=== PATIENT | male | born 1965 | race Caucasian/White ===

== ENCOUNTER 2017-07-27 16:28 | Observation (INO) | payer OTHER ==
[~2017-07-27] VITALS: Ht 193 cm; Wt 193.2 kg
[~2017-07-27 16:28] MED LIST: AMBIEN10 MG PO; COLCRYS0.6 MG PO; EXFORGE 10-3201 EACH PO; INDOMETHACIN50 MG PO; MEDROL4 MG/DOSE-; NORCO 10-325 T1 EACH PO
[2017-07-27] MEDS ORDERED: KETOROLAC TROMETHAMINE 30 MG/ML VIAL IV STA (17:00)
[2017-07-27] MEDS ORDERED: HYDROCODONE/APAP 10MG-325MG TAB PO ONE (17:00)
[2017-07-27] MEDS ORDERED: DEXAMETHASONE SOD PHOS 10 MG/1 ML VIAL IV NR (17:30)
--- NOTE | 2017-07-27 17:48 | Diagnostic Imaging Report ---
PROCEDURE:X-RAY LEFT KNEE, THREE OR MORE VIEWS COMPARISON:None. INDICATIONS:KNEE PAIN FINDINGS: The bones are well-mineralized. There are no fractures, subluxations, lytic or blastic lesions. Mild patellar enthesophyte at the quadriceps tendon insertion. Moderate suprapatellar joint effusion. CONCLUSION: Nonspecific moderate suprapatellar joint effusion. No acute abnormalities identified. Dictated by: Kan Ruiz M.D. on 07/27/2017 at 17:56 Electronically approved by: Kan Ruiz M.D. on 07/27/2017 at 17:56
[2017-07-27 19:52] LABS: BASOPHILS # (AUTO) 0.1 (0.0-0.1); BASOPHILS % 0.4 % (0.0-1.0); EOSINOPHILS # (AUTO) 0.1 (0.0-0.4); EOSINOPHILS % 1.1 % (0.0-6.0); HEMATOCRIT 31.1 % (38.2-49.6); HEMOGLOBIN 10.6 g/dL (14.0-18.0); LYMPHOCYTES # (AUTO) 0.9 (1.0-3.2); MEAN CORPUSCULAR HGB CONC 34.1 g/dL (31-35); MONOCYTES # (AUTO) 0.9 (0.2-0.8); MONOCYTES % 6.7 % (4.4-11.3); NEUTROPHILS # (AUTO) 10.7 (2.1-6.9); NEUTROPHILS % 84.2 % (38.7-80.0); PLATELET COUNT 287 x10e3/uL (140-360); RED BLOOD COUNT 3.31 x10e6/uL (4.3-5.7); RED CELL DISTRIBUTION WIDTH 14.5 % (11.7-14.4)
[2017-07-27 20:09] LABS: ANION GAP 14.6 mmol/L (8-16); BLOOD UREA NITROGEN 6 mg/dL (7-26); BUN/CREATININE RATIO 8 (6-25); CALCIUM 7.8 mg/dL (8.4-10.2); CARBON DIOXIDE 29 mmol/L (22-29); CHLORIDE 98 mmol/L (98-107); CREATININE, SERUM 0.72 mg/dL (0.72-1.25); EST GLOMERULAR FILTRATION RATE > 60 ML/MIN (60-); GLUCOSE 130 mg/dL (74-118); SODIUM 139 mmol/L (136-145); URIC ACID 5.5 mg/dL (3.5-7.2)
[2017-07-27 20:12] LABS: POTASSIUM 2.6 mmol/L (3.5-5.1)
[2017-07-27] MEDS ORDERED: POTASSIUM CHLORIDE 20 MEQ TAB CR PO STA (20:13)
[2017-07-27] MEDS ORDERED: KCL 20MEQ/.9 SOD CHL 1,000 ML IV ONE (20:15)
[2017-07-27] MEDS ORDERED: COLCHICINE 0.6 MG TAB PO STA (20:31)
[2017-07-27] MEDS ORDERED: SODIUM CHLORIDE FLUSH 10 ML SYR INJ PRN (20:45)
[2017-07-27] MEDS ORDERED: HYDROMORPHONE 1MG/1ML INJ IV PRN (20:45)
[2017-07-27] MEDS ORDERED: INDOMETHACIN 25 MG CAP PO SCH (21:00)
[2017-07-27] MEDS: ZOLPIDEM TARTRATE 10 MG TAB PO SCH (21:00)
[2017-07-27] MEDS ORDERED: INDOMETHACIN 50 MG PO SCH (21:00)
[2017-07-27] MEDS: DOXYCYCLINE HYCLATE 100 MG in SODIUM CHLORIDE 0.9% 100 ML 100 ML IV SCH (21:54)
[2017-07-27] MEDS ORDERED: COLCHICINE 0.6 MG TAB PO SCH (22:00)
[2017-07-27] MEDS: HYDROMORPHONE 2MG/ML INJ IV PRN (22:47)
[2017-07-27] MEDS: METHYLPREDNISOLONE SOD SUCC 125 MG/2ML VIAL IV SCH (23:32)
[2017-07-28] VITALS (9 sets, daily range): BP systolic 147–190; BP diastolic 74–92
[2017-07-28] MEDS ORDERED: METHYLPREDNISOLONE SOD SUCC 40 MG/ML VIAL IV SCH
[2017-07-28] MEDS: HYDROMORPHONE 2MG/ML INJ IV PRN ×5 (01:50→20:06)
[2017-07-28] MEDS: METHYLPREDNISOLONE SOD SUCC 125 MG/2ML VIAL IV SCH ×3 (05:02→17:36)
[2017-07-28 07:06] LABS: BASOPHILS % 0.1 % (0.0-1.0); EOSINOPHILS % 0.1 % (0.0-6.0); HEMATOCRIT 31.9 % (38.2-49.6); HEMOGLOBIN 10.9 g/dL (14.0-18.0); LYMPHOCYTES # (AUTO) 0.5 (1.0-3.2); LYMPHOCYTES % 3.8 % (18.0-39.1); MEAN CORPUSCULAR HEMOGLOBIN 32.1 pg (28-32); MEAN CORPUSCULAR HGB CONC 34.2 g/dL (31-35); MEAN CORPUSCULAR VOLUME 93.8 fL (81-99); MONOCYTES # (AUTO) 0.5 (0.2-0.8); MONOCYTES % 3.6 % (4.4-11.3); NEUTROPHILS # (AUTO) 12.3 (2.1-6.9); NEUTROPHILS % 91.7 % (38.7-80.0); PLATELET COUNT 330 x10e3/uL (140-360); RED CELL DISTRIBUTION WIDTH 14.1 % (11.7-14.4)
[2017-07-28 07:35] LABS: ANION GAP 14.5 mmol/L (8-16); BLOOD UREA NITROGEN 10 mg/dL (7-26); BUN/CREATININE RATIO 12 (6-25); CALCIUM 8.1 mg/dL (8.4-10.2); CARBON DIOXIDE 28 mmol/L (22-29); CHLORIDE 99 mmol/L (98-107); CREATININE, SERUM 0.81 mg/dL (0.72-1.25); EST GLOMERULAR FILTRATION RATE > 60 ML/MIN (60-); GLUCOSE 197 mg/dL (74-118); POTASSIUM 3.5 mmol/L (3.5-5.1); SODIUM 138 mmol/L (136-145)
[2017-07-28] MEDS: COLCHICINE 0.6 MG TAB PO SCH (08:39)
[2017-07-28] MEDS: VALSARTAN 160 MG TAB PO SCH (08:39)
[2017-07-28] MEDS: POTASSIUM CHLORIDE 20 MEQ TAB CR PO SCH (08:39)
[2017-07-28] MEDS: AMLODIPINE BESYLATE 10 MG TAB PO SCH (08:39)
[2017-07-28] MEDS ORDERED: AMLODIPINE PO SCH (09:00)
[2017-07-28] MEDS ORDERED: COLCHICINE 0.6 MG TAB PO SCH (09:00)
[2017-07-28] MEDS ORDERED: VALSARTAN PO SCH (09:00)
[2017-07-28] MEDS: DOXYCYCLINE HYCLATE 100 MG in SODIUM CHLORIDE 0.9% 100 ML 100 ML IV SCH ×2 (10:00→20:24)
[2017-07-28] MEDS: INDOMETHACIN 25 MG CAP PO SCH ×2 (12:36→16:53)
[2017-07-28] MEDS: PANTOPRAZOLE SOD 40 MG TABEC PO SCH (12:45)
--- NOTE | 2017-07-28 14:48 | History and Physical ---
PRIMARY CARE PROVIDER: Dr. Shankar "Nicole Wells. CHIEF COMPLAINT: Polyarticular gout flareup. HISTORY OF PRESENT ILLNESS: Mr. Phan is a 52-year-old gentleman with longstanding gout and gouty arthritis, who presents now with a flareup involving his hands and feet, his left elbow and left knee. Patient's last flareup was in May. REVIEW OF SYSTEMS: He denies fever, chills or weight loss. He denies sinus congestion or sore throat. He denies chest pain or palpitations. He denies shortness of breath, wheezing or cough. He denies abdominal pain, nausea, vomiting or melena. He denies dysuria or flank pain. He denies rash or pruritus. He has generalized joint pain, particularly hands, feet, left elbow and left knee. He denies bleeding or bruising. He denies headache, vertigo or loss of consciousness. He denies depression, agitation, homicidal or suicidal ideation. PAST MEDICAL HISTORY: Significant for longstanding hypertension and gout. MEDICATIONS: Exforge, which is amlodipine and valsartan 10/320 daily. Indocin 50 three times a day as needed. Ambien 10 mg daily. Colchicine 0.6 mg twice a day as needed. Hydrocodone as needed and has been Medrol Dosepaks in the past. He denies any significant surgical history. He does not smoke. ALLERGIES: HE HAS NO KNOWN DRUG ALLERGIES. FAMILY HISTORY: Significant for hypertension. SOCIAL HISTORY: The patient is . Tamaz[place] is his primary language. He does not smoke, drink or use illegal drugs, and he is generally independently functioning. PHYSICAL EXAMINATION: PSYCHIATRIC: He is alert and oriented times 3 with normal mood and affect. CONSTITUTIONAL: He is morbidly obese with a BMI of 50.38, 414 pounds. He is in no acute distress. VITAL SIGNS: Blood pressure 179/88. Pulse 73 and regular. Respiratory rate 18. O2 sat 97%. Temperature 97.9. HEENT: His head is atraumatic. His eyes are anicteric with clear conjunctivae. Ears and nares are without erythema or discharge. Oropharynx is clear. NECK: Supple with no mass or thyromegaly. LYMPHATIC SYSTEM: He has no palpable cervical, axillary or inguinal adenopathy. CARDIOVASCULAR: His heart has a regular rate and rhythm without murmur or extra heart sound. He has no carotid bruit. He has no peripheral edema. He has weak dorsal pedal pulses. RESPIRATORY: Lungs are clear to auscultation and percussion with normal respiratory effort. GASTROINTESTINAL: His abdomen is soft without organomegaly, masses or tenderness. He has normal bowel sounds present. CUTANEOUS: His skin is warm and dry to the touch with no rash or skin breakdown. MUSCULOSKELETAL: He has multiple inflamed joints, the knuckles in his hands and his wrists, both hands, both wrists, both feet, both metatarsophalangeal joints, left knee and left elbow. The left knee has a small effusion. They all have some erythema and inflammation. NEUROLOGIC: Exam is nonfocal with intact cranial nerves and no motor or sensory deficits. He has no calf tenderness. DIAGNOSTIC STUDIES: X-ray of the left knee shows a slightly effusion. His chemistry profile shows sodium 139, potassium 2.6, chloride 98, CO2 29, creatinine 0.72, BUN 6 for a normal GFR. Glucose 130. Calcium 7.8. Uric acid 5.5. His CBC shows a white count of 12.67 with 84% neutrophils, 7% lymphocytes, 7% monocytes. Hemoglobin 10.6, hematocrit 31.1 and platelet count 287,000. IMPRESSION AND PLAN: 1. Acute polyarticular gout. The patient will be started on a loading dose of colchicine, Indocin and IV Solu-Medrol. Will also use IV doxycycline to cover for infectious etiology. Will check an ASO titer to rule out post strep infection and check a rheumatoid factor, although these have likely been previously ruled out. 2. For hypertension, the patient will continue his Norvasc and valsartan and will add p.r.n. IV hydralazine. 3. For prophylaxis, the patient will be on Protonix for GI prophylaxis and Lovenox for DVT prophylaxis. Job#: [id number] EV
[2017-07-28] MEDS: ENOXAPARIN SOD INJ 40 MG/0.4 ML SYR SC SCH (16:53)
[2017-07-28] MEDS: ONDANSETRON HCL INJ 2 MG/ML VIAL IV PRN (20:06)
[2017-07-28] MEDS: ZOLPIDEM TARTRATE 10 MG TAB PO SCH (20:24)
[2017-07-29] VITALS: BP 110/55
[2017-07-29 04:00] VITALS: BP 117/68
[2017-07-29] MEDS: METHYLPREDNISOLONE SOD SUCC 125 MG/2ML VIAL IV SCH ×4 (05:39→21:35)
[2017-07-29] MEDS: HYDROMORPHONE 2MG/ML INJ IV PRN ×5 (05:40→23:08)
[2017-07-29] MEDS: INDOMETHACIN 25 MG CAP PO SCH ×3 (08:00→10:27)
[2017-07-29 08:15] VITALS: BP 143/81
[2017-07-29] MEDS: PANTOPRAZOLE SOD 40 MG TABEC PO SCH (09:41)
[2017-07-29] MEDS: DOXYCYCLINE HYCLATE 100 MG in SODIUM CHLORIDE 0.9% 100 ML 100 ML IV SCH ×2 (09:42→20:04)
[2017-07-29] MEDS: VALSARTAN 160 MG TAB PO SCH (09:42)
[2017-07-29] MEDS: COLCHICINE 0.6 MG TAB PO SCH (09:42)
[2017-07-29] MEDS: AMLODIPINE BESYLATE 10 MG TAB PO SCH (09:43)
[2017-07-29] MEDS: POTASSIUM CHLORIDE 20 MEQ TAB CR PO SCH (09:43)
[2017-07-29] MEDS: ONDANSETRON HCL INJ 2 MG/ML VIAL IV PRN ×3 (10:53→20:04)
[2017-07-29 12:04] VITALS: BP 144/84
[2017-07-29 13:58] LABS: ANION GAP 14.5 mmol/L (8-16); BLOOD UREA NITROGEN 17 mg/dL (7-26); BUN/CREATININE RATIO 22 (6-25); CALCIUM 8.6 mg/dL (8.4-10.2); CARBON DIOXIDE 28 mmol/L (22-29); CHLORIDE 101 mmol/L (98-107); CREATININE, SERUM 0.77 mg/dL (0.72-1.25); EST GLOMERULAR FILTRATION RATE > 60 ML/MIN (60-); GLUCOSE 179 mg/dL (74-118); POTASSIUM 3.5 mmol/L (3.5-5.1); SODIUM 140 mmol/L (136-145)
[2017-07-29 16:00] VITALS: BP 164/87
[2017-07-29] MEDS: ENOXAPARIN SOD INJ 40 MG/0.4 ML SYR SC SCH (16:29)
[2017-07-29 20:25] VITALS: BP 165/87
[2017-07-29] MEDS: HYDRALAZINE HCL 20 MG/ML VIAL IV PRN (21:35)
[2017-07-29] MEDS: ZOLPIDEM TARTRATE 10 MG TAB PO SCH (21:56)
[2017-07-30] VITALS (7 sets, daily range): BP systolic 130–174; BP diastolic 66–89
[2017-07-30] MEDS: HYDROMORPHONE 2MG/ML INJ IV PRN ×5 (04:45→21:28)
[2017-07-30] MEDS: ONDANSETRON HCL INJ 2 MG/ML VIAL IV PRN ×4 (04:46→18:16)
[2017-07-30] MEDS: METHYLPREDNISOLONE SOD SUCC 125 MG/2ML VIAL IV SCH ×3 (05:02→21:21)
[2017-07-30 06:33] LABS: BASOPHILS % 0.1 % (0.0-1.0); HEMOGLOBIN 10.7 g/dL (14.0-18.0); LYMPHOCYTES # (AUTO) 0.6 (1.0-3.2); LYMPHOCYTES % 4.4 % (18.0-39.1); MEAN CORPUSCULAR HEMOGLOBIN 31.9 pg (28-32); MEAN CORPUSCULAR HGB CONC 33.4 g/dL (31-35); MEAN CORPUSCULAR VOLUME 95.5 fL (81-99); MONOCYTES # (AUTO) 0.7 (0.2-0.8); MONOCYTES % 5.3 % (4.4-11.3); NEUTROPHILS # (AUTO) 11.4 (2.1-6.9); PLATELET COUNT 391 x10e3/uL (140-360); RED BLOOD COUNT 3.35 x10e6/uL (4.3-5.7); RED CELL DISTRIBUTION WIDTH 14.5 % (11.7-14.4)
[2017-07-30] MEDS: INDOMETHACIN 25 MG CAP PO SCH ×3 (08:00→15:45)
[2017-07-30] MEDS: DOXYCYCLINE HYCLATE 100 MG in SODIUM CHLORIDE 0.9% 100 ML 100 ML IV SCH ×2 (09:11→21:20)
[2017-07-30] MEDS: PANTOPRAZOLE SOD 40 MG TABEC PO SCH (09:11)
[2017-07-30] MEDS: AMLODIPINE BESYLATE 10 MG TAB PO SCH (09:11)
[2017-07-30] MEDS: VALSARTAN 160 MG TAB PO SCH (09:11)
[2017-07-30] MEDS: COLCHICINE 0.6 MG TAB PO SCH (09:11)
[2017-07-30] MEDS: POTASSIUM CHLORIDE 20 MEQ TAB CR PO SCH (09:12)
[2017-07-30] MEDS: ENOXAPARIN SOD INJ 40 MG/0.4 ML SYR SC SCH (15:45)
[2017-07-30] MEDS ORDERED: PREDNISONE 10 MG TAB PO SCH (17:00)
[2017-07-30] MEDS: ASCORBIC ACID 500 MG TAB PO SCH (17:28)
[2017-07-30] MEDS: MULTIVITAMINS/MINERALS TAB PO SCH (17:28)
[2017-07-30] MEDS: FERROUS SULFATE 325 MG TAB PO SCH (17:28)
[2017-07-30] MEDS: ZOLPIDEM TARTRATE 10 MG TAB PO SCH (21:00)
[2017-07-30] MEDS ORDERED: METHYLPREDNISOLONE SOD SUCC 125 MG/2ML VIAL IV SCH (21:00)
[2017-07-30] MEDS ORDERED: SODIUM CHLORIDE 0.9% 1000ML 1,000 ML ONE (21:08)
[2017-07-30] MEDS: HYDRALAZINE HCL 20 MG/ML VIAL IV PRN (21:20)
[2017-07-31] VITALS (7 sets, daily range): BP systolic 143–171; BP diastolic 76–86
[2017-07-31] MEDS: HYDROMORPHONE 2MG/ML INJ IV PRN ×4 (05:36→21:52)
[2017-07-31 07:35] LABS: BASOPHILS % 0.2 % (0.0-1.0); HEMOGLOBIN 11.2 g/dL (14.0-18.0); LYMPHOCYTES # (AUTO) 0.7 (1.0-3.2); LYMPHOCYTES % 6.1 % (18.0-39.1); MEAN CORPUSCULAR HEMOGLOBIN 30.9 pg (28-32); MEAN CORPUSCULAR VOLUME 96.4 fL (81-99); MONOCYTES # (AUTO) 0.8 (0.2-0.8); MONOCYTES % 7.2 % (4.4-11.3); NEUTROPHILS # (AUTO) 9.3 (2.1-6.9); NEUTROPHILS % 84.2 % (38.7-80.0); PLATELET COUNT 401 x10e3/uL (140-360); RED BLOOD COUNT 3.63 x10e6/uL (4.3-5.7); RED CELL DISTRIBUTION WIDTH 14.2 % (11.7-14.4)
[2017-07-31] MEDS: INDOMETHACIN 25 MG CAP PO SCH ×2 (08:00→09:49)
[2017-07-31 08:08] LABS: ANION GAP 15.6 mmol/L (8-16); BLOOD UREA NITROGEN 24 mg/dL (7-26); BUN/CREATININE RATIO 25 (6-25); CALCIUM 8.6 mg/dL (8.4-10.2); CARBON DIOXIDE 26 mmol/L (22-29); CHLORIDE 101 mmol/L (98-107); CREATININE, SERUM 0.96 mg/dL (0.72-1.25); EST GLOMERULAR FILTRATION RATE > 60 ML/MIN (60-); GLUCOSE 178 mg/dL (74-118); POTASSIUM 3.6 mmol/L (3.5-5.1); SODIUM 139 mmol/L (136-145)
[2017-07-31] MEDS: PANTOPRAZOLE SOD 40 MG TABEC PO SCH (08:58)
[2017-07-31] MEDS: FERROUS SULFATE 325 MG TAB PO SCH ×2 (08:58→18:23)
[2017-07-31] MEDS: POTASSIUM CHLORIDE 20 MEQ TAB CR PO SCH (08:59)
[2017-07-31] MEDS: COLCHICINE 0.6 MG TAB PO SCH ×2 (08:59→18:23)
[2017-07-31] MEDS: AMLODIPINE BESYLATE 10 MG TAB PO SCH (08:59)
[2017-07-31] MEDS: VALSARTAN 160 MG TAB PO SCH (08:59)
[2017-07-31] MEDS: DOXYCYCLINE HYCLATE 100 MG in SODIUM CHLORIDE 0.9% 100 ML 100 ML IV SCH ×2 (08:59→21:51)
[2017-07-31] MEDS: ASCORBIC ACID 500 MG TAB PO SCH ×2 (09:00→18:23)
[2017-07-31] MEDS: MULTIVITAMINS/MINERALS TAB PO SCH ×2 (09:00→18:23)
[2017-07-31] MEDS: ENOXAPARIN SOD INJ 40 MG/0.4 ML SYR SC SCH (09:00)
[2017-07-31] MEDS: ONDANSETRON HCL INJ 2 MG/ML VIAL IV PRN ×2 (09:48→15:16)
[2017-07-31] MEDS: METHYLPREDNISOLONE SOD SUCC 125 MG/2ML VIAL IV SCH (09:48)
[2017-07-31 11:06] LABS: BAND NEUTROPHILS % (MANUAL) 5 %; LYMPHOCYTES % (MANUAL) 8 % (19-48); MONOCYTES % (MANUAL) 5 % (3.4-9.0); NEUTROPHILS % (MANUAL) 82 % (40-74); PLATELET ESTIMATE SLIGHTLY INCREASED; PLATELET MORPHOLOGY COMMENT NORMAL; RBC MORPHOLOGY COMMENT NORMAL
[2017-07-31] MEDS: HYDROCORTISONE ACETATE 25 MG/SUPP.RECT SUPP RC SCH (17:00)
[2017-07-31] MEDS: ZOLPIDEM TARTRATE 10 MG TAB PO SCH (21:00)
[2017-07-31] MEDS: METHYLPREDNISOLONE SOD SUCC 40 MG/ML VIAL IV SCH (21:51)
[2017-07-31] MEDS: HYDRALAZINE HCL 20 MG/ML VIAL IV PRN (21:52)
[2017-08-01] VITALS: BP 156/87
[2017-08-01] MEDS: HYDROMORPHONE 2MG/ML INJ IV PRN (00:26)
[2017-08-01 04:00] VITALS: BP 174/84
[2017-08-01] MEDS: HYDROCODONE/APAP 10MG-325MG TAB PO PRN ×2 (05:57→10:43)
[2017-08-01] MEDS: HYDRALAZINE HCL 20 MG/ML VIAL IV PRN (05:59)
[2017-08-01 07:42] VITALS: BP 162/83
[2017-08-01] MEDS: HYDROCORTISONE ACETATE 25 MG/SUPP.RECT SUPP RC SCH ×2 (07:50→17:00)
[2017-08-01] MEDS: METHYLPREDNISOLONE SOD SUCC 40 MG/ML VIAL IV SCH (07:54)
[2017-08-01] MEDS: PANTOPRAZOLE SOD 40 MG TABEC PO SCH (07:54)
[2017-08-01] MEDS: FERROUS SULFATE 325 MG TAB PO SCH ×2 (07:54→17:00)
[2017-08-01] MEDS: COLCHICINE 0.6 MG TAB PO SCH ×2 (07:54→17:00)
[2017-08-01] MEDS: MULTIVITAMINS/MINERALS TAB PO SCH ×2 (07:55→17:00)
[2017-08-01] MEDS: POTASSIUM CHLORIDE 20 MEQ TAB CR PO SCH (07:55)
[2017-08-01] MEDS: VALSARTAN 160 MG TAB PO SCH (07:55)
[2017-08-01] MEDS: ASCORBIC ACID 500 MG TAB PO SCH ×2 (07:56→17:00)
[2017-08-01] MEDS: AMLODIPINE BESYLATE 10 MG TAB PO SCH (07:56)
[2017-08-01] MEDS ORDERED: DOXYCYCLINE HYCLATE TABLET 100 MG TAB PO ONE (08:30)
[2017-08-01 09:45] VITALS: BP 162/83
--- NOTE | 2017-08-01 10:41 | Progress Note ---
DATE: PCP: Dr. Jace Bunch CHIEF COMPLAINT: Hypokalemia, leukocytosis, polyarticular gout. ALLERGIES: NO KNOWN DRUG ALLERGIES. DIET: Cardiac diet. SUBJECTIVE: Patient reports having a bowel movement with some mucous "white stuff", and continues to have joint pain when ambulating. Patient requesting to be discharged. OBJECTIVE VITALS: Temperature 97.5, pulse 86, BP 157/76, respirations 18, and satting 100%. Patient is 6 feet 4 inches in height, weight 426, BMI 51.84. GENERAL: Patient is awake, alert and oriented times 3. Has a alvarez face. LUNGS: Clear to auscultation bilaterally. Normal respiratory effort. HEENT: Extraocular muscles are intact. Sclerae is anicteric. ABDOMEN: Soft. Bowel sounds present. Nondistended. Patient is obese. CARDIOVASCULAR: Regular rate and rhythm. No murmurs appreciated. NECK: Supple. EXTREMITIES: No calf tenderness. Patient does have swelling to multiple joints and hands, as well as to the left ankle. NEUROLOGICAL: Nonfocal. MEDICATIONS: Please see MAR. LABS: Sodium 139, potassium 3.6, chloride 101, CO2 26, BUN 24, creatinine 0.86, glucose 178. White count 11, hemoglobin 11.2, hematocrit 35, and platelets 401,000. DIAGNOSES 1. Acute polyarticular gout: Patient is on colchicine. Will increase colchicine to 0.6 mg p.o. to b.i.d. Patient has been refusing the last 2-3 days of indomethacin. Patient reports indomethacin makes him sick. I have titrated his Solu-Medrol from 60 mg to 40 mg intravenously q.12 h. Anticipate discharge tomorrow. 2. Hypertension: Continue his current medications. 3. Anemia: Hemoglobin and hematocrit are stable. 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 Patient should follow up as an outpatient with his PCP. 5. Because the stool has mucus likely pus appearing, the patient has refused a rectal exam. Patient refusing for a nurse to examine his rectum. at bedside and reported he likely has hemorrhoids. I will go ahead and give the patient a suppository for hemorrhoids. Will continue to monitor him until tomorrow. DICTATED BY ADELINA LAWRENCE NP Job#: [id number] [place]
[2017-08-01 10:44] LABS: BASOPHILS % 0.2 % (0.0-1.0); HEMATOCRIT 32.7 % (38.2-49.6); LYMPHOCYTES # (AUTO) 0.7 (1.0-3.2); LYMPHOCYTES % 6.1 % (18.0-39.1); MEAN CORPUSCULAR HEMOGLOBIN 31.7 pg (28-32); MEAN CORPUSCULAR HGB CONC 33.6 g/dL (31-35); MEAN CORPUSCULAR VOLUME 94.2 fL (81-99); MONOCYTES # (AUTO) 1.1 (0.2-0.8); NEUTROPHILS # (AUTO) 9.8 (2.1-6.9); NEUTROPHILS % 81.9 % (38.7-80.0); PLATELET COUNT 344 x10e3/uL (140-360); RED BLOOD COUNT 3.47 x10e6/uL (4.3-5.7)
[2017-08-01 11:12] LABS: ANION GAP 12.1 mmol/L (8-16); BLOOD UREA NITROGEN 22 mg/dL (7-26); BUN/CREATININE RATIO 26 (6-25); CALCIUM 8.6 mg/dL (8.4-10.2); CARBON DIOXIDE 27 mmol/L (22-29); CHLORIDE 102 mmol/L (98-107); CREATININE, SERUM 0.84 mg/dL (0.72-1.25); EST GLOMERULAR FILTRATION RATE > 60 ML/MIN (60-); GLUCOSE 135 mg/dL (74-118); POTASSIUM 4.1 mmol/L (3.5-5.1); SODIUM 137 mmol/L (136-145)
[2017-08-01 11:24] VITALS: BP 169/82
[2017-08-01 11:42] LABS: LYMPHOCYTES % (MANUAL) 3 % (19-48); METAMYELOCYTES % (MANUAL) 3 % (0-0); MONOCYTES % (MANUAL) 2 % (3.4-9.0); NEUTROPHILS % (MANUAL) 90 % (40-74); PLATELET ESTIMATE ADEQUATE; PLATELET MORPHOLOGY COMMENT FEW GIANT; PROMYELOCYTES % (MANUAL) 2 % (0-0); RBC MORPHOLOGY COMMENT NORMAL
[2017-08-01] MEDS ORDERED: NORCO 10-325 T1 EACH PO (13:47)
[2017-08-01] MEDS ORDERED: ASCORBIC ACID500 MG PO (13:47)
[2017-08-01] MEDS ORDERED: FEOSOL325 MG PO (13:47)
[2017-08-01] MEDS ORDERED: Multivitamins/Minerals PO (13:47)
[2017-08-01] MEDS ORDERED: PANTOPRAZOLE SO40 MG PO (13:47)
[2017-08-01] MEDS ORDERED: COLCRYS0.6 MG PO (13:49)
[2017-08-01] MEDS ORDERED: PREDNISONE20 MG PO (13:49)
[2017-08-01 15:29] VITALS: BP 176/81
[2017-08-01] MEDS: ENOXAPARIN SOD INJ 40 MG/0.4 ML SYR SC SCH (17:00)
[2017-08-01] MEDS ORDERED: CLONIDINE HCL 0.2 MG TAB PO ONE (17:00)
--- NOTE | 2017-08-02 11:45 | Discharge Summary ---
ADMISSION DIAGNOSES 1. Acute polyarticular gout. 2. Hypertension. DISCHARGE DIAGNOSES 1. Acute polyarticular gout. 2. Hypertension. HISTORY: Patient has a history of hypertension and gout. HOSPITAL COURSE: A 52-year-old male presented with longstanding gout and gouty arthritis, presenting with a flare-up of his hands and feet, primarily on his left elbow, wrist and knee. Patient's last flare-up was in May. On admission, the patient was given a loading dose of colchicine, Indocin, and IV Solu-Medrol. Doxycycline was also started to cover an infectious etiology. For hypertension, the patient was resumed on his home medicines. Patient needed IV pain medicines to help the pain and steroids were slowly tapered over a couple of days as tolerated by the patient. Patient used crutches to ambulate around the room independently. Patient was started on colchicine 0.6. On 07/27/2017, his uric acid was found to be 5.5 and on found to be , so we increased his colchicine to 0.6 b.i.d. Rheumatoid factor 10.8 and the ASO titer was negative. Patient was titrated down to p.o. steroids, ambulating around the room, was sent home on prednisone 40 b.i.d. for 10 days, [place] 10 q.6 p.r.n., colchicine 0.6 b.i.d., and Ambien 10 mg daily. Patient lives at home with his and is able to ambulate short distances using the crutches. He is ready to go home and feels safe. Patient is to follow up with his police justice for further medications. DICTATED BY: JOSEE HUNG NP HERMILO VALE MD Job#: [id number] RENNY
== END 2017-08-01 18:44 | disposition home or self-care (01) ==
LOC: ER 16:28 → IMCU 21:00
PROVIDERS: ADMIT Internal Medicine; ATTEND Internal Medicine
DX: M10.09 Idiopathic gout, multiple sites (principal); E87.6 Hypokalemia; I10 Essential (primary) hypertension; R19.5 Other fecal abnormalities; K64.9 Unspecified hemorrhoids; D64.9 Anemia, unspecified; E24.9 Cushing's syndrome, unspecified; Z53.29 Procedure and treatment not carried out because of patient's decision for other reasons
CPT/HCPCS: 36415 ×6; 73562; 80048 ×5; 84550 ×2; 85025 ×5; 86060; 86200; 86431; 87040; 87071; 87186; 87205; 96365; 96374; 96375; 99284; G0378 ×6; J0360 ×3; J1100; J1170 ×6; J1885; J2405 ×4; J2920 ×2; J2930 ×5; J7030; J1650

== ENCOUNTER 2018-08-23 11:41 | Inpatient (IN) | payer OTHER ==
[~2018-08-23] VITALS: Ht 193 cm; Wt 156.9 kg
[~2018-08-23 11:41] MED LIST changes: +ASCORBIC ACID500 MG PO; +FEOSOL325 MG PO; +Multivitamins/Minerals PO; +PANTOPRAZOLE SO40 MG PO; +PREDNISONE20 MG PO
--- OUTSIDE RECORDS SUMMARY | 2018-08-23 11:44 | XMS REPORT ---
Author Author Merritt Steiner Organization [employer] Address Unknown Phone Unavailable Care Team Providers Care Software Validation Technician Name Role Phone Merritt Steiner CP Unavailable Allergies, Adverse Reactions, Alerts Substance Reaction Event Type N.K.D.A. 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 Problem BMI 50.0-59.9, adult Z68.43 Active Assessment BMI 50.0-59.9, adult Z68.43 Active Medications Medication Code System Code Instructions Start Date End Date Status Dosage Allopurinol [facility] 83113070576 300 MG Orally Once a day Sep 07, 2017 Active 1 tablet Uloric [facility] 17250692176 80 MG Orally Once a day Sep 07, 2017 Inactive 1 tablet Vitamin C [facility] 29776725905 500 MG Orally Active as directed Multi Vitamin [facility] 89740655639 - Orally Once a day Active 1 tablet PredniSONE [facility] 38831848588 40 MG Orally Once a day Active 40 mg daily-->20 mg x 5 days -->10 mg x 5 days Colcrys [facility] 51378653307 10 MG Orally Once a day Active 1 tablet Valsartan [facility] 72381721464 320 MG Orally Once a day Active 1 tablet Vital Signs Date/Time: Sep 07, 2017 BMI 51.35 Index Weight 400 lbs Height 74 in Temperature 99.7 F Cardiac Monitoring Heart Rate 88 /min Blood Pressure Diastolic 60 mm Hg Blood Pressure Systolic 112 mm Hg Results No Known Results Summary Purpose [employer] Submission
--- OUTSIDE RECORDS SUMMARY | 2018-08-23 11:44 | XMS REPORT | Continuity of Care Document ---
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 Active Problem 09/13/2017 Cezar Leroy BMI 50.0-59.9, adult Active Problem 09/13/2017 Cezarann-marie Leroy Medications Medication Details Route Status Patient Instructions Ordering Provider Order Date Source Allopurinol 1 tablet Orally Active 300 MG Orally Once a day Fakoya 09/07/2017 Cezar Leroy Uloric 1 tablet Orally Active 80 MG Orally Once a day Fakoya 09/07/2017 Cezarann-marie Leroy Vitamin C as directed Orally Active 500 MG Orally Fakoya Cezar Leroy Multi Vitamin 1 tablet Orally Active - Orally Once a day Fakoya Cezar Leroy PredniSONE 40 mg daily-->20 mg x 5 days -->10 mg x 5 days Orally Active 40 MG Orally Once a day Fakoya Cezar Leroy Colcrys 1 tablet Orally Active 10 MG Orally Once a day Fakoya Cezar Leroy Valsartan 1 tablet Orally Active 320 MG Orally Once a day Fakoya Cezar Alvaradoer Allergies, Adverse Reactions, Alerts Substance Category Reaction Severity Reaction type Status Date Reported Comments Source N.K.D.A. Adverse Reaction Info Not Available Adverse Reaction Active 09/07/2017 Cezar Leroy Immunizations Immunization Date Given Site Status Last Updated Comments Source Results Order Name Results Value Reference Range Date Interpretation Comments Source Vital Signs Vital Sign Value Date Comments Source Weight 400 09/07/2017 Cezar Leroy Height 74 09/07/2017 Cezar Leroy Temperature Oral (F) 99.7 F 09/07/2017 Cezar Leroy Heart Rate 88 09/07/2017 Cezar Leroy Diastolic (mm Hg) 60 09/07/2017 Cezar Leroy Systolic (mm Hg) 112 09/07/2017 Cezar Leroy Encounters Location Location Details Encounter Type Encounter Number Reason For Visit Attending Provider ADM Date DC Date Status Source Procedures Procedure Code Date Perfomer Comments Source
--- OUTSIDE RECORDS SUMMARY | 2018-08-23 11:44 | XMS REPORT ---
Author Author [facility] Address Unknown Phone Unavailable Care Team Providers Care Chief Chemist Name Role Phone Cher SCHRADER Unavailable Unavailable Problems This patient has no known problems. Allergies, Adverse Reactions, Alerts This patient has no known allergies or adverse reactions. Medications This patient has no known medications. Results Test Description Test Time Test Comments Text Results Atomic Results Result Comments KNEE LEFT THREE VIEWS [place] [id number] Patient Name: ITALO KILLIAN MR #: [id number] : 1965 Age/Sex: 52/M Req #: [id number] Adm Physician: Ordered by: SHANTANU SCHRADER MD Report #: [id number] Location: ER Room/Bed: Procedure: [id number] DX/KNEE LEFT THREE VIEWS Exam Date: 07/27/17 Exam Time: 1730 REPORT STATUS: Signed PROCEDURE: X-RAY LEFT KNEE, THREE OR MORE VIEWS COMPARISON: None. INDICATIONS: KNEE PAIN FINDINGS: The bones are well- mineralized. There are no fractures, subluxations, lytic or blastic lesions. Mild patellar enthesophyte at the quadriceps tendon insertion. Moderate suprapatellar joint effusion. CONCLUSION: Nonspecific moderate suprapatellar joint effusion. No acute abnormalities identified. Dictated by: Irais Ruiz M.D. on 07/27/2017 at 17:56 Electronically approved by: Irais Ruiz M.D. on 07/27/2017 at 17:56 Dictated By: IRAIS RUIZ MD 55 Transcribed By: MORALES on 07/27/171755 COPY TO: SHANTANU SCHRADER MD
--- OUTSIDE RECORDS SUMMARY | 2018-08-23 11:44 | XMS REPORT ---
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
[2018-08-23 12:23] LABS: BASOPHILS # (AUTO) 0.1 (0.0-0.1); EOSINOPHILS # (AUTO) 0.2 (0.0-0.4); EOSINOPHILS % 2.7 % (0.0-6.0); HEMATOCRIT 33.8 % (38.2-49.6); HEMOGLOBIN 11.3 g/dL (14.0-18.0); LYMPHOCYTES # (AUTO) 1.2 (1.0-3.2); MEAN CORPUSCULAR HGB CONC 33.4 g/dL (31-35); MEAN CORPUSCULAR VOLUME 101.8 fL (81-99); MONOCYTES # (AUTO) 0.7 (0.2-0.8); MONOCYTES % 9.7 % (4.4-11.3); NEUTROPHILS # (AUTO) 3.9 (2.1-6.9); NEUTROPHILS % 57.7 % (38.7-80.0); PLATELET COUNT 193 x10e3/uL (140-360); RED BLOOD COUNT 3.32 x10e6/uL (4.3-5.7)
[2018-08-23] MEDS ORDERED: SODIUM CHLORIDE 0.9% 1000ML 1,000 ML IV SCH (12:30)
[2018-08-23 12:33] LABS: INR 0.95; PROTHROMBIN TIME 13.6 seconds (11.9-14.5)
[2018-08-23 12:34] LABS: PARTIAL THROMBOPLASTIN TIME 35.2 seconds (23.8-35.5)
[2018-08-23 12:37] LABS: ALBUMIN 2.4 g/dL (3.5-5.0); ALBUMIN/GLOBULIN RATIO 0.6 (0.8-2.0); ANION GAP 20.1 mmol/L (8-16); CALCIUM 9.4 mg/dL (8.4-10.2); CREATININE, SERUM 3.98 mg/dL (0.72-1.25); POTASSIUM 4.1 mmol/L (3.5-5.1)
[2018-08-23 12:44] LABS: CREATINE KINASE MB 1.9 ng/mL (0-5.0)
[2018-08-23] MEDS ORDERED: MULTIVITAMINS- 12 INJECTION 10 ML, FOLIC ACID MDV 5 MG, THIAMINE HCL INJ 100 MG in SODI... IV ONE (13:00)
--- NOTE | 2018-08-23 13:19 | Diagnostic Imaging Report ---
Examination: CT BRAIN WITHOUT CONTRAST History:Blurred vision; slurred speech. Comparison studies:None Technique: Axial images were obtained from the skull base to the vertex. Coronal and sagittal images reconstructed from the axial data. Dose modulation, iterative reconstruction, and/or weight based adjustment of the mA/kV was utilized to reduce the radiation dose to as low as reasonably achievable. Intravenous contrast: None Findings: Scalp: No abnormalities. Bones: No fractures, blastic or lytic lesions. Brain sulci: Appropriate for age. Ventricles: Normal in size and configuration. No hydrocephalus. Extra-axial space: No abnormalities. Parenchyma: No abnormal densities. No masses, hemorrhage, or acute or chronic cortical based vascular insults.. Sellar/suprasellar region: No abnormalities. Craniocervical junction: Patent foramen magnum. No Chiari one malformation. Incidental findings: None. Impression: No intracranial abnormalities. Signed by: Dr. Elinor Hernandez M.D. on 08/23/2018 1:15 PM
--- NOTE | 2018-08-23 13:21 | Diagnostic Imaging Report ---
Examination: Single AP view of the chest. COMPARISON: None. INDICATION: Chest pain DISCUSSION: Lines/tubes: None. Lungs: The lungs are well inflated and clear. No pneumonia or pulmonary edema. Pleura: No pleural effusion or pneumothorax. Heart and mediastinum: Enlarged heart. Bones and soft tissues: No acute bony abnormalities. IMPRESSION: 1. Cardiomegaly without decompensation Signed by: Dr. Matrinez Escalona M.D. on 08/23/2018 1:17 PM
--- NOTE | 2018-08-23 13:23 | Diagnostic Imaging Report ---
Examination: CT CERVICAL SPINE WITHOUT CONTRAST HISTORY:Neck pain. COMPARISON:None. TECHNIQUE: Multidetector helical axial images were obtained without contrast from the foramen magnum to T1. Coronal and sagittal reformatted images were done. Bone and soft tissue windows were evaluated. Dose modulation, iterative reconstruction, and/or weight based adjustment of the mA/kV was utilized to reduce the radiation dose to as low as reasonably achievable. FINDINGS: Alignment:Normal alignment with straightening of normal lordosis. Vertebrae: Normal height and density. No acute fracture, infection or neoplasm. Disc space heights: Normal height. Caliber of spinal canal: Developmentally normal. Posterior fossa and craniocervical junction: Foramen magnum patent. No Chiari 1 malformation. Soft tissues: No abnormality. Degenerative changes: No disc bulge/ herniation or canal stenosis from C1-C2 through C3-C4. Central disc protrusions at C4-C5 and C5-C6 with at least mild canal stenosis. Visibility of C6-C7 and C7-T1 is poor and cannot be commented upon due to photon loss. Visualized lung apices: No abnormalities. IMPRESSION: 1. No acute abnormalities. 2. Mild degenerative changes at C5-C6 and C6-C87 with at least mild canal stenosis. Signed by: Dr. Elinor Hernandez M.D. on 08/23/2018 1:19 PM
[2018-08-23 14:06] LABS: BAND NEUTROPHILS % (MANUAL) 8 %; EOSINOPHILS % (MANUAL) 3 % (0-7); LYMPHOCYTES % (MANUAL) 14 % (19-48); METAMYELOCYTES % (MANUAL) 7 % (0-0); MONOCYTES % (MANUAL) 7 % (3.4-9.0); MYELOCYTES % (MANUAL) 7 % (0-0); NEUTROPHILS % (MANUAL) 53 % (40-74)
[2018-08-23 14:07] LABS: ANISOCYTOSIS SLIGHT; HYPOCHROMASIA SLIGHT; PLATELET ESTIMATE ADEQUATE; PLATELET MORPHOLOGY COMMENT NORMAL; RBC MORPHOLOGY COMMENT NORMAL; STOMATOCYTES SLIGHT
[2018-08-23 15:01] LABS: BILIRUBIN,URINE 2+ (NEGATIVE); CLARITY,URINE SL CLOUDY (CLEAR); COLOR,URINE AMBER (YELLOW); KETONES,URINE TRACE (NEGATIVE); LEUKOCYTE ESTERASE ,URINE TRACE (NEGATIVE); NITRITE,URINE NEGATIVE (NEGATIVE); PROTEIN,URINE DIPSTICK TRACE (NEGATIVE); URINE UROBILINOGEN 1 mg/dL (0.2 - 1)
[2018-08-23 15:13] LABS: AMORPHOUS SEDIMENT,URINE MODERATE (FEW); BACTERIA,URINE FEW /HPF; EPITHELIAL CELLS,URINE FEW /LPF
[2018-08-23 19:00] VITALS: BP 95/72
[2018-08-23 19:15] VITALS: BP 95/72
[2018-08-23] MEDS: SODIUM CHLORIDE 0.9% 1000ML 1,000 ML IV SCH ×2 (20:00→21:55)
[2018-08-23 20:26] VITALS: BP 91/55
[2018-08-23] MEDS ORDERED: GABAPENTIN100 MG PO (22:22)
[2018-08-23] MEDS ORDERED: PREDNISONE5 MG PO (22:27)
[2018-08-23] MEDS ORDERED: COLCRYS0.6 MG PO (22:28)
[2018-08-23] MEDS ORDERED: FUROSEMIDE40 MG PO (22:35)
[2018-08-23] MEDS ORDERED: VITAMIN D10000 UNIT PO (22:35)
[2018-08-23] MEDS ORDERED: BENADRYL25 M1 PO (22:35)
[2018-08-23 23:00] VITALS: BP 109/58
[2018-08-23 23:37] VITALS: BP 109/58
--- NOTE | 2018-08-24 01:00 | NUR ---
Christiano Sweeney at 2111 and 2299 regarding reconcile of home med list and pt condition. Pt reports making very little urine and has only urinated once since arriving at ER. Called for orders x 2, no return call received. Addendum: 08/24/18 at 0132 by Rosenda Max RN Pt reports very little urine output since prior to admission, over weeks. Addendum: 08/24/18 at 0157 by Rosenda Max RN Correction: over almost a week
--- NOTE | 2018-08-24 02:12 | NUR ---
Pt refuses to turn in bed to relieve pressure. Pt educated on importance of alternating weight/pressure sites to prevent pressure wounds while in bed for prolonged period of time. Patient verbalizes understanding but still refuses. Alternating pressure mattress pump applied on bed. Offered assistance in turning every 2 hours since 1900.
[2018-08-24 03:00] VITALS: BP 113/63
[2018-08-24] MEDS: SODIUM CHLORIDE 0.9% 1000ML 1,000 ML IV SCH ×2 (04:45→14:03)
[2018-08-24 04:59] LABS: BASOPHILS # (AUTO) 0.1 (0.0-0.1); BASOPHILS % 1.3 % (0.0-1.0); EOSINOPHILS # (AUTO) 0.3 (0.0-0.4); EOSINOPHILS % 4.6 % (0.0-6.0); HEMATOCRIT 28.1 % (38.2-49.6); HEMOGLOBIN 9.4 g/dL (14.0-18.0); LYMPHOCYTES # (AUTO) 1.5 (1.0-3.2); LYMPHOCYTES % 20.6 % (18.0-39.1); MEAN CORPUSCULAR HEMOGLOBIN 33.9 pg (28-32); MEAN CORPUSCULAR HGB CONC 33.5 g/dL (31-35); MEAN CORPUSCULAR VOLUME 101.4 fL (81-99); MONOCYTES # (AUTO) 1.2 (0.2-0.8); MONOCYTES % 16.8 % (4.4-11.3); NEUTROPHILS # (AUTO) 3.2 (2.1-6.9); NEUTROPHILS % 43.6 % (38.7-80.0); PLATELET COUNT 158 x10e3/uL (140-360); RED BLOOD COUNT 2.77 x10e6/uL (4.3-5.7); RED CELL DISTRIBUTION WIDTH 14.2 % (11.7-14.4)
[2018-08-24 05:29] LABS: ANION GAP 16.7 mmol/L (8-16); CALCIUM 8.7 mg/dL (8.4-10.2); CREATININE, SERUM 4.08 mg/dL (0.72-1.25); POTASSIUM 3.7 mmol/L (3.5-5.1)
--- NOTE | 2018-08-24 07:26 | NUR ---
Dr. Sweeney returned phone calls at 0720. Orders to continue certain home meds given. informed of low UO and creatinine. Orders received to bladder scan and insert ross if residual > 400. Ninoska WOO aware of pt condition and orders.
[2018-08-24] MEDS ORDERED: NON-FORMULARY MEDICATION (Cholecalciferol (Vitamin D3) (Vitamin D) 50,000 UNITS) PO SCH (07:30)
[2018-08-24 08:00] VITALS: BP 91/74
[2018-08-24 08:01] LABS: BAND NEUTROPHILS % (MANUAL) 1 %; EOSINOPHILS % (MANUAL) 5 % (0-7); LYMPHOCYTES % (MANUAL) 26 % (19-48); METAMYELOCYTES % (MANUAL) 3 % (0-0); MONOCYTES % (MANUAL) 16 % (3.4-9.0); MYELOCYTES % (MANUAL) 9 % (0-0); NEUTROPHILS % (MANUAL) 40 % (40-74)
[2018-08-24 08:02] LABS: HYPOCHROMASIA MODERATE; PLATELET ESTIMATE SLIGHTLY DECREASED; PLATELET MORPHOLOGY COMMENT FEW LARGE; RBC MORPHOLOGY COMMENT NORMAL
[2018-08-24 08:03] LABS: ANISOCYTOSIS SLIGHT; POIKILOCYTOSIS SLIGHT
[2018-08-24] MEDS: PANTOPRAZOLE SOD 40 MG TABEC PO SCH (09:29)
[2018-08-24] MEDS: PREDNISONE 5 MG TAB PO SCH (09:29)
[2018-08-24] MEDS ORDERED: HYDROMORPHONE 1MG/1ML INJ IV PRN (11:15)
[2018-08-24 12:00] VITALS: BP 108/64
--- NOTE | 2018-08-24 12:45 | NUR ---
Dr. Lazar called regarding consult and left voice mail with patient information
--- NOTE | 2018-08-24 12:50 | NUR ---
Dr. Allison Sweeney's answering service called regarding consult and I spoke to [facility] and patient information given
--- NOTE | 2018-08-24 12:56 | NUR ---
Dr. Emmanuel's office called for consult on this patient
[2018-08-24] MEDS: HYDROMORPHONE 2MG/ML 2 MG/ML ML IV PRN ×3 (13:24→22:20)
--- NOTE | 2018-08-24 13:25 | NUR ---
THIS RN TO RESUME CARE AT THIS TIME, PT COMPLAINED OF GENERALIZED PAIN MEDICATED ACCORDING TO MAR. WILL CONTINUE TO MONITOR
--- NOTE | 2018-08-24 14:31 | NUR ---
Nutrition Screen Note RD Recommendation for Physician: -Continue cardiac diet as ordered -Rec MVi with thiamine and folic acid (reported hx of alcohol abuse 1 pint of vodka and 2-3 beer a day) -Attempted to provide diet education as consulted by RN, pt refused. Plan of Care: RD following, monitoring for tolerance and adequacy Nutrition reason for involvement: RN Consult obesity Primary Diagnose(s): LE cellulitis, hyponatremia, transaminitis PMH: no H&Pin chart Ht: 76in Wt: 437.44lb BMI: 53.2kg/m2 IBW: 202lb RD Assessment: (08/24) Chart reviewed. Labs and meds reviewed. 53yo M, who is admitted for chest pain and LE cellulitis. Pt was discussed during AM rounds. Per RN, pt has no urine output with decreased kidney function. Negative cardiac markers. No hx of DM. Visited pt in the room. Pt reports eating very little in the last 2 years. UBW ~410lbs. No weight loss noted. Pt denies any nausea or vomiting at this time. LBM 08/23. Pt denies any chewing or swallowing issue. Pt quit drinking alcohol about 2 weeks ago. Prior to that, pt usually drinks 1 pint of vodka and 2-3 beer a day. Pt refused diet education. Will continue to monitor and follow. Current Diet: cardiac diet Malnutrition Evaluation (08/24/18) The patient does not meet criteria for a specified degree of malnutrition at this time. Will re-evaluate at follow-up as appropriate. Diet Education Needs Assessment: Diet education indicated, pt is not interested. Nutrition Care Level: low Signed: Jenna Roland, , RD, LD
[2018-08-24 15:53] LABS: ALBUMIN 2.2 g/dL (3.5-5.0); ALBUMIN/GLOBULIN RATIO 0.6 (0.8-2.0); ANION GAP 16.2 mmol/L (8-16); CALCIUM 8.6 mg/dL (8.4-10.2); CREATININE, SERUM 3.81 mg/dL (0.72-1.25); POTASSIUM 4.2 mmol/L (3.5-5.1)
[2018-08-24 16:33] VITALS: BP 117/73
--- NOTE | 2018-08-24 17:47 | NUR ---
FAXED MEDICAL REQUEST FORM TO OFFICE AT THIS TIME
[2018-08-24 19:41] VITALS: BP 100/63
[2018-08-24 20:00] VITALS: BP 100/63
--- NOTE | 2018-08-24 20:00 | NUR ---
Dr. Yanni marie. Notified MD of low urine output. MD ordered to place Mcfadden in patient. Patient refused. Nurse and MD educated patient on importance of monitoring urine output and kidney function.
[2018-08-24 20:54] LABS: CALCIUM 8.7 mg/dL (8.4-10.2); CREATININE, SERUM 3.79 mg/dL (0.72-1.25)
[2018-08-24] MEDS: DIPHENHYDRAMINE HCL 25 MG CAP PO SCH (21:00)
[2018-08-24] MEDS ORDERED: GABAPENTIN 300 MG CAP PO SCH (21:00)
[2018-08-24] MEDS ORDERED: GABAPENTIN 100 MG CAP PO SCH (21:00)
--- NOTE | 2018-08-24 21:10 | Consultation ---
DATE OF CONSULTATION: August 24, 2018 ATTENDING PHYSICIAN: Dr. Sweeney REASON FOR CONSULTATION: Hyponatremia and acute kidney injury. HISTORY OF PRESENT ILLNESS: Patient is a 53-year-old male with past medical history of hypertension and gout, was admitted with repeated fall and found to be in acute kidney injury and hyponatremia. Patient denies having any nausea, vomiting, or diarrhea. Patient has history of alcohol abuse and currently he is saying his last drink was 2 weeks ago. He drinks about a pint and 3 beers when he drinks. His baseline creatinine from July 2017 was 0.84. Patient had only 75 mL of urine today. Patient has been on normal saline 125 mL an hour since admission and already had 3 bags of normal saline. His sodium was 119, that went up to 121, and then decreased to 120 again. His creatinine on admission was 3.98 and this afternoon was 3.8. BNP was 103. No urine sample could be done. Patient is adamantly refusing Mcfadden catheter at this point. Patient is obese. Has bilateral lower extremity edema and evidence of volume overload. Currently on room air. Mentation-morales, patient was altered yesterday, but per nurse he is still confused today, but better about answering questions. His LFTs were all elevated too.NO H/O NSAIDS PAST MEDICAL HISTORY: Hypertension and gout. SOCIAL HISTORY: Positive for alcohol, 1 pint of vodka with 2 beers for many years, last he says 2 weeks ago. No tobacco, no intravenous drug abuse. FAMILY HISTORY: No history of any kidney disease. PAST SURGICAL HISTORY: None. ALLERGIES: NO KNOWN DRUG ALLERGIES. MEDICATIONS: Currently, the patient is on normal saline at 125 mL an hour, hydromorphone, prednisone, pantoprazole, gabapentin 900 mg, and ergocalciferol. REVIEW OF SYSTEMS: GENERAL: No fatigue, no fever, no chills. HEENT: No headache or blurry vision. NECK: No dysphagia. CARDIOVASCULAR: No chest pain, no PND, no orthopnea. RESPIRATORY: No shortness of breath, no dyspnea on exertion, no cough, no hemoptysis. GI: No nausea, vomiting, diarrhea, constipation, abdominal pain, hematemesis, or melena. GENITOURINARY: No urinary urgency, frequency, or hesitancy. MUSCULOSKELETAL: Positive ankle swelling. NEUROLOGICAL: No numbness, weakness, or tingling. PHYSICAL EXAMINATION: VITAL SIGNS: Blood pressure 117/73, pulse of 98, respiration 18, temperature 98.0, 96% on room air. GENERAL: Awake and alert, not in apparent distress. HEENT: Extraocular muscles intact. NECK: Very thick neck. LUNGS: Decreased breath sounds at the bases. HEART: S1, S2. ABDOMEN: Soft, obese. Cannot palpate the bladder. EXTREMITIES: 1 mm bilateral lower extremity swelling. NEUROLOGICAL: Patient is awake, follow simple commands. LABS: Sodium 120, potassium 4.2, chloride 87, CO2 21, BUN is 22, creatinine is 3.8, glucose 115. AST 139, ALT 83, alk phos is 317, albumin is 2.2. Urinalysis showed trace leukocyte esterase on admission. White count 7.2, hemoglobin 9.4, platelet count is 158,000. Chest x-ray, cardiomegaly without decompensation. CT head, no intracranial abnormalities. ASSESSMENT AND PLAN: 1. Acute kidney injury. / cause . Need to rule out obstructive uropathy. Patient has been getting intravenous fluid, but kidney function is not getting better. Patient is refusing any Mcfadden catheter. If we get urine sample, will check urine lytes and urine eosinophil. Order a renal ultrasound. As patient is currently with volume overload, will discontinue normal saline. Repeat the laboratories in the morning. Follow up on the renal ultrasound. Avoid all nephrotoxic medications. 2. Hyponatremia. Patient has history of alcohol withdrawal. Will not increase the sodium more than 6 mEq per 24 hours. As patient is with volume overload, will discontinue normal saline. Continue with 1.2 liter per day of p.o. fluid restriction. Start the patient on salt tablets. Repeat B-type natriuretic peptide STAT and in the morning. 3. Gout. No acute issues. 4. Hypertension. Currently controlled. 5. ETOH abuse, altered mental status likely secondary to alcohol abuse. Per nurse, it is improving. I want to thank Dr. Sweeney for the consult. Will follow the patient with you. Job#: [id number] DR HARRIS
[2018-08-24] MEDS: SODIUM CHLORIDE 1 GM TAB PO SCH (22:20)
--- NOTE | 2018-08-24 23:00 | NUR ---
Patient changed mind regarding Mcfadden and allowed insertion of Mcfadden catheter. Safia RN at bedside for insertion as well. 60 mL bill urine obtained immediately after Mcfadden and sent to lab for lab tests.
[2018-08-25] VITALS (19 sets, daily range): BP systolic 85–137; BP diastolic 49–82
--- NOTE | 2018-08-25 00:30 | NUR ---
Patient's O2 sats dropped to 70s. Pt arousable to sternal rub and name. Applied NRB and O2 sats increased to 100%. RT and studio operations engineer in charge in room to assess patient. Patient is confused but answering questions. Pt reports "feeling good" and no complaints.
[2018-08-25 01:44] LABS: CREATININE,URINE RANDOM 346.59 mg/dL (63-166)
[2018-08-25 05:16] LABS: ALBUMIN 2.4 g/dL (3.5-5.0); ALBUMIN/GLOBULIN RATIO 0.6 (0.8-2.0); ANION GAP 18.3 mmol/L (8-16); CALCIUM 8.8 mg/dL (8.4-10.2); CREATININE, SERUM 4.58 mg/dL (0.72-1.25); PHOSPHORUS 2.5 MG/DL (2.3-4.7); POTASSIUM 4.3 mmol/L (3.5-5.1)
[2018-08-25 05:23] LABS: EOSINOPHIL SMEAR,URINE NONE SEEN (NONE SEEN)
[2018-08-25 06:10] LABS: MAGNESIUM 0.7 MG/DL (1.3-2.1)
--- NOTE | 2018-08-25 06:25 | NUR ---
Pt refuses assistance in turning. Educated patient again this shift regarding importance of adjusting weight off pressure points. Patient declined turning and does very little self-adjusting.
[2018-08-25 06:28] LABS: FERRITIN 1602.14 ng/mL (21.81-274.66)
--- NOTE | 2018-08-25 06:49 | NUR ---
Left voicemail for Dr. Lazar at 0616 regarding critical magnesium level. Awaiting return call.
[2018-08-25 07:13] LABS: BASOPHILS # (AUTO) 0.2 (0.0-0.1); BASOPHILS % 1.5 % (0.0-1.0); EOSINOPHILS # (AUTO) 0.2 (0.0-0.4); EOSINOPHILS % 1.4 % (0.0-6.0); HEMATOCRIT 31.1 % (38.2-49.6); HEMOGLOBIN 10.4 g/dL (14.0-18.0); LYMPHOCYTES # (AUTO) 1.7 (1.0-3.2); LYMPHOCYTES % 13.9 % (18.0-39.1); MEAN CORPUSCULAR HEMOGLOBIN 35.1 pg (28-32); MEAN CORPUSCULAR HGB CONC 33.4 g/dL (31-35); MEAN CORPUSCULAR VOLUME 105.1 fL (81-99); MONOCYTES # (AUTO) 1.8 (0.2-0.8); NEUTROPHILS # (AUTO) 6.1 (2.1-6.9); NEUTROPHILS % 50.6 % (38.7-80.0); PLATELET COUNT 165 x10e3/uL (140-360); RED BLOOD COUNT 2.96 x10e6/uL (4.3-5.7); RED CELL DISTRIBUTION WIDTH 14.6 % (11.7-14.4)
[2018-08-25] MEDS: PANTOPRAZOLE SOD 40 MG TABEC PO SCH (07:30)
[2018-08-25] MEDS: NALOXONE HCL INJ 0.4 MG/ML AMP IV PRN ×3 (07:42→18:00)
--- NOTE | 2018-08-25 08:03 | NUR ---
Second left voicemail for Dr. Lazar about magnesium of 0.7
[2018-08-25] MEDS ORDERED: FUROSEMIDE INJ 10 MG/ML 4 ML VIAL IV ONE (08:30)
[2018-08-25] MEDS ORDERED: MAGNESIUM SULFATE 2GM/50ML 50 ML IV ONE (08:30)
[2018-08-25] MEDS: SODIUM CHLORIDE 1 GM TAB PO SCH ×3 (09:00→21:00)
[2018-08-25] MEDS: PREDNISONE 5 MG TAB PO SCH (09:00)
--- NOTE | 2018-08-25 09:24 | Diagnostic Imaging Report ---
Abdominal ultrasound. History: Elevated alkaline phosphatase. Comparison: Abnormal liver enzymes. Discussion: Limited study due to the patient's body habitus. Transverse and longitudinal images of the abdomen were obtained demonstrating a liver of increased echogenicity measuring 20.5 cm in length. Unable to visualize the portal vein. The biliary tree is within normal limits with the common bile duct measuring 6 mm in diameter. The gallbladder is normal without evidence of stones, wall thickening or pericholecystic fluid. There is biliary sludge present. The sonographic Alfaro's sign was negative. The right kidney is not well visualized. The left kidney measures 10.8 x 5.1 x 6.2 cm. The spleen is enlarged measuring 16.0 x 7.6 x 0.4 cm in length. Pancreas, aorta and IVC are limited in evaluation. There is no evidence of free fluid. IMPRESSION: 1. Enlarged liver with diffuse fatty infiltration. 2. The spleen is enlarged. 3. Biliary sludge without stones or wall thickening. Signed by: Dr. Breezy Delarosa DO on 08/25/2018 9:21 AM
[2018-08-25 09:25] LABS: EOSINOPHILS % (MANUAL) 1 % (0-7); HYPOCHROMASIA SLIGHT; LYMPHOCYTES % (MANUAL) 19 % (19-48); METAMYELOCYTES % (MANUAL) 5 % (0-0); MONOCYTES % (MANUAL) 16 % (3.4-9.0); MYELOCYTES % (MANUAL) 7 % (0-0); NEUTROPHILS % (MANUAL) 52 % (40-74)
[2018-08-25 09:26] LABS: ANISOCYTOSIS SLIG; PLATELET ESTIMATE ADEQUATE; PLATELET MORPHOLOGY COMMENT NORMAL; POIKILOCYTOSIS SLIGHT; RBC MORPHOLOGY COMMENT NORMAL
--- NOTE | 2018-08-25 14:34 | NUR ---
CASE MANAGEMENT INITIAL ASSESSMENT Room Service Runner to bedside to discuss plan of care with patient/family. CM/SW role and care transitions discussed. Anticipated discharge plan discussed along with duration of care. CM/SW discussed patients right to make decisions in care. CM/SW work hours given. Patient lives: Admit/Transfer: ER Hospital/ER visits since last admit:NONE POA/Emergency contact: CHUCK KILLIAN [phone] Current/Previous Home Health: NONE PCP/Follow-up Care: ALIVAI BEGUM Current/Previous DME: WALKER Medications (referring to index hospitalization or the first time you were in the hospital) a. Were changes made in your medications when you were in the hospital on [date of index hospitalization]? Yes No Not sure Explain: Note: If no or not sure, please skip to question d b. Did you understand the changes? Yes No Explain: c. Were you able to obtain your new medications right away? Yes No n/a SNF only Explain: d. Were you able to take your medications like the doctor wanted you to? Yes No Explain: e. Did the hospital give you an accurate, easy to understand list of medications when you left? Yes No n/a SNF only Explain: Scale of 1-10 how comfortable does patient feel with disease management in outpatient settin Other Services: NONE Employment Status: DISABLED Areas of Concerns: NONE Referral Needs: TO BE DETERMINED Education Needs: F/U CARE IMM/LUNA given and signed (if applicable): N/A Goal for discharge:TO GO HOME WITH CM/SW left business card at the bedside with contact information. Name and number was also written on the patients whiteboard. Patient verbalized understanding of discussion. CM will follow-up with ongoing discharge and transition of care needs.
--- NOTE | 2018-08-25 15:15 | Diagnostic Imaging Report ---
This report includes an Addendum and supersedes previous reports for this exam. PROCEDURE:ULTRASOUND GUIDANCE FOR VASCULAR ACCESS COMPARISON:None. INDICATIONS:Acute renal insufficiency FINDINGS:The right internal jugular vein is noted to be patent. Ultrasound guidance was utilized for access for temporary triple-lumen Trialysis catheter placement. CONCLUSION:Patent right internal jugular vein. Successful ultrasound guidance for temporary hemodialysis line placement. Breezy Delarosa D.O. Dictated by: Breezy Delarosa D.O. on 08/25/2018 at 15:27 Electronically approved by: Breezy Delarosa D.O. on 08/25/2018 at 15:27 ADDENDUM: Following localization of the right internal jugular vein with ultrasound, puncture was accomplished with a 21 gauge needle after local anesthesia with 1% Xylocaine. A 0.018 " wire was then advanced through the needle followed by a micropuncture sheath. A 0.035 " Amplatz Super Stiff wire was placed through the outer lumen of the sheath. Serial dilatation was accomplished. A 13 Vietnamese 20 cm long Bard Trialysis catheter was then advanced over the wire. The catheter was secured to the skin. Followup chest x-ray was ordered. CONCLUSION: Successful bedside non-tunneled hemodialysis catheter placement. Breezy Delarosa D.O. Dictated by: Breezy Delarosa D.O. on 08/25/2018 at 15:57 Electronically approved by: Breezy Delarosa D.O. on 08/25/2018 at 15:57
--- NOTE | 2018-08-25 15:26 | Diagnostic Imaging Report ---
EXAM: CHEST XRAY LINE PLACEMENT, AP Portable DATE: 08/25/2018 Time stamp on exam: 2:40 PM INDICATION: Central line placement COMPARISON: None FINDINGS: LINES/TUBES: Right IJ temporary hemodialysis catheter is in appropriate location with the tip overlying the cavoatrial junction. LUNGS: Mild pulmonary edema. PLEURA: No effusions or pneumothorax. HEART AND MEDIASTINUM: Enlarged cardiomediastinal silhouette. BONES AND SOFT TISSUES: No acute findings. IMPRESSION: 1. Acceptable position of a temporary right IJ hemodialysis catheter. 2. Mild cardiomegaly and pulmonary edema. Signed by: Dr. Breezy Delarosa DO on 08/25/2018 3:23 PM
--- NOTE | 2018-08-25 15:30 | NUR ---
Spoke with Dov about the need for dialysis today.
--- NOTE | 2018-08-25 18:17 | NUR ---
Second call to [facility]. Message left will call center
--- NOTE | 2018-08-25 19:38 | Consultation ---
DATE OF CONSULTATION: August 24, [address] Min Sweeney. HISTORY OF PRESENT ILLNESS: This 53-year-old patient was currently referred for cardiac evaluation. The patient does have a history of hypertensive cardiovascular disease and was seen originally by myself in June of 2017, complaining of chest pain. Nuclear stress test was recommended; however, the patient could not afford the expense of the test and it was never performed. Echocardiogram was done since he has been hospitalized and also had been done in the past, which showed normal left ventricular function. Diastolic dysfunction was noted at that time with [id number] left atrial enlargement. The patient was mainly admitted because of altered mental status according to the patient's and he was found to have severe hyponatremia, which has been treated and the patient seemed to be responding mentally. He is now awake and alert and giving appropriate answers. He also was found to have acute kidney injury with low cardiac output. He is being seen by market manager. He also has elevated liver enzyme and is seen by Dr. John Sweeney. The patient does have a history of alcoholism. His BNP is only slightly elevated with 103. He is also mildly anemic, which appeared to be chronic. PAST MEDICAL HISTORY: Patient has history of gout, rheumatoid arthritis and has been on prednisone. He also has a chronic anemia, obesity, probably a pickwickian syndrome. He has a GERD, peripheral neuropathy, chronic low back pain. The patient has some chronic kidney disease and laboratory data obtain from Dr. Raad Wells in June of 2017 showed creatinine of 1.54. Lipid profile at that time was normal. There was some elevation of the patient's glucose 157 and the hemoglobin was 12.0. Uric acid was 11.2. The patient also has history of kidney stones. SOCIAL HISTORY: Positive for alcohol. Patient admits drinking 1 pint of vodka and 2 to 3 beers every day for many years until about 2 weeks ago. He denies any smoking habits or use of intravenous drugs. FAMILY HISTORY: Positive for cancer. ALLERGIES: NONE KNOWN. REVIEW OF SYSTEMS: The patient denies any headache or sore throat. The patient denies any chest pain or shortness of breath. He denies any abdominal pain. He has some chronic leg swelling. PHYSICAL EXAMINATION GENERAL: Patient is markedly obese, weighing over 400 pounds. NECK: Carotid pulses are present. CHEST: Clear to auscultation. CARDIOVASCULAR: Normal apical impulse. Rhythm is regular. First and second are normal. There is no S3. There is no rub. ABDOMEN: Soft. There is no tenderness or organomegaly. EXTREMITIES: Shows chronic stasis dermatitis and leg edema. NEUROLOGIC: Does not reveal any motor defect. The patient's chest x-ray shows cardiomegaly, but clear lung patel. Electrocardiogram is within normal limits. IMPRESSION 1. Hypertensive cardiovascular disease. 2. Acute and chronic kidney disease with acute hyponatremia. 3. History of gout. 4. Rheumatoid arthritis. 5. Anemia. 6. Gastroesophageal reflux disease. 7. Chronic low back pain. RECOMMENDATION: I agree with present evaluation and management. Most likely, patient will need dialysis and I will be glad to review the patient's echocardiogram. Thank you very much for letting me see this very nice patient. Job#: [id number] RENNY
[2018-08-25] MEDS ORDERED: SODIUM CHLORIDE 0.9% 1000ML 2,000 ML ONE (19:41)
[2018-08-25] MEDS ORDERED: MANNITOL 25% 12.5GM/50ML 100 ML ONE (19:41)
[2018-08-25] MEDS ORDERED: HEPARIN SOD (PORCINE) 1000 UNIT/ML SDV ONE (19:41)
[2018-08-25] MEDS: DIPHENHYDRAMINE HCL 25 MG CAP PO SCH (21:00)
[2018-08-26] VITALS (24 sets, daily range): BP systolic 94–138; BP diastolic 51–99
[2018-08-26 05:24] LABS: BASOPHILS # (AUTO) 0.1 (0.0-0.1); BASOPHILS % 0.8 % (0.0-1.0); EOSINOPHILS # (AUTO) 0.1 (0.0-0.4); EOSINOPHILS % 1.5 % (0.0-6.0); HEMATOCRIT 27.5 % (38.2-49.6); HEMOGLOBIN 9.1 g/dL (14.0-18.0); LYMPHOCYTES # (AUTO) 1.2 (1.0-3.2); LYMPHOCYTES % 13.3 % (18.0-39.1); MEAN CORPUSCULAR HEMOGLOBIN 35.1 pg (28-32); MEAN CORPUSCULAR HGB CONC 33.1 g/dL (31-35); MEAN CORPUSCULAR VOLUME 106.2 fL (81-99); MONOCYTES # (AUTO) 1.3 (0.2-0.8); MONOCYTES % 13.7 % (4.4-11.3); NEUTROPHILS # (AUTO) 5.8 (2.1-6.9); NEUTROPHILS % 62.4 % (38.7-80.0); PLATELET COUNT 150 x10e3/uL (140-360); RED BLOOD COUNT 2.59 x10e6/uL (4.3-5.7); RED CELL DISTRIBUTION WIDTH 14.9 % (11.7-14.4)
[2018-08-26 05:49] LABS: ALBUMIN 2.1 g/dL (3.5-5.0); ALBUMIN/GLOBULIN RATIO 0.6 (0.8-2.0); ANION GAP 15.5 mmol/L (8-16); CALCIUM 8.5 mg/dL (8.4-10.2); CREATININE, SERUM 4.45 mg/dL (0.72-1.25); POTASSIUM 4.5 mmol/L (3.5-5.1)
[2018-08-26 07:36] LABS: BAND NEUTROPHILS % (MANUAL) 7 %; EOSINOPHILS % (MANUAL) 3 % (0-7); LYMPHOCYTES % (MANUAL) 15 % (19-48); METAMYELOCYTES % (MANUAL) 1 % (0-0); MONOCYTES % (MANUAL) 9 % (3.4-9.0); MYELOCYTES % (MANUAL) 2 % (0-0); NEUTROPHILS % (MANUAL) 63 % (40-74)
[2018-08-26 07:37] LABS: ANISOCYTOSIS SLIGHT; PLATELET ESTIMATE ADEQUATE; PLATELET MORPHOLOGY COMMENT NORMAL
[2018-08-26] MEDS ORDERED: ENOXAPARIN SOD INJ 40 MG/0.4 ML SYR SC SCH (09:00)
[2018-08-26] MEDS ORDERED: RIFAXIMIN 550 MG TABLET ONE (09:49)
[2018-08-26] MEDS: PANTOPRAZOLE SOD 40 MG TABEC PO SCH (09:58)
[2018-08-26] MEDS: RIFAXIMIN 550 MG TABLET PO SCH ×2 (09:59→17:54)
[2018-08-26] MEDS: PREDNISONE 5 MG TAB PO SCH (09:59)
[2018-08-26] MEDS: SODIUM CHLORIDE 1 GM TAB PO SCH ×2 (09:59→17:29)
[2018-08-26] MEDS: NALOXONE HCL INJ 0.4 MG/ML AMP IV PRN (10:11)
--- NOTE | 2018-08-26 10:22 | NUR ---
Left a message with Dr. Liao about magnesium
[2018-08-26] MEDS ORDERED: MAGNESIUM SULFATE 2GM/50ML 50 ML IV ONE ×2 (10:48→11:30)
[2018-08-26] MEDS: LACTULOSE SYRUP 20 GM/30 ML UDC PO SCH (17:54)
--- NOTE | 2018-08-26 19:00 | NUR ---
Report received. Assumed care. Assessment done. See interventions. Trialysis cath to RIJ.
--- NOTE | 2018-08-26 19:30 | NUR ---
Rotating bed changed out for longer bed.
[2018-08-26] MEDS ORDERED: SODIUM CHLORIDE 0.9% 1000ML 0 ML ONE (19:50)
[2018-08-26] MEDS ORDERED: HEPARIN SOD (PORCINE) 1000 UNIT/ML SDV ONE (19:51)
[2018-08-26] MEDS: DIPHENHYDRAMINE HCL 25 MG CAP PO SCH (21:22)
--- NOTE | 2018-08-26 23:20 | NUR ---
Mcfadden cath care done.
[2018-08-27] VITALS (19 sets, daily range): BP systolic 97–140; BP diastolic 52–111
[2018-08-27 04:42] LABS: BASOPHILS # (AUTO) 0.1 (0.0-0.1); BASOPHILS % 1.1 % (0.0-1.0); EOSINOPHILS # (AUTO) 0.2 (0.0-0.4); HEMOGLOBIN 8.7 g/dL (14.0-18.0); LYMPHOCYTES # (AUTO) 1.2 (1.0-3.2); LYMPHOCYTES % 14.1 % (18.0-39.1); MEAN CORPUSCULAR HEMOGLOBIN 34.3 pg (28-32); MEAN CORPUSCULAR HGB CONC 32.2 g/dL (31-35); MEAN CORPUSCULAR VOLUME 106.3 fL (81-99); MONOCYTES % 11.9 % (4.4-11.3); NEUTROPHILS # (AUTO) 4.9 (2.1-6.9); NEUTROPHILS % 59.6 % (38.7-80.0); PLATELET COUNT 139 x10e3/uL (140-360); RED BLOOD COUNT 2.54 x10e6/uL (4.3-5.7); RED CELL DISTRIBUTION WIDTH 15.1 % (11.7-14.4)
--- NOTE | 2018-08-27 05:00 | NUR ---
Cleaned for mod soft brown stool. Partial linen changed.
[2018-08-27 05:02] LABS: ALBUMIN 2.1 g/dL (3.5-5.0); ALBUMIN/GLOBULIN RATIO 0.6 (0.8-2.0); CALCIUM 8.5 mg/dL (8.4-10.2); CREATININE, SERUM 2.47 mg/dL (0.72-1.25)
--- NOTE | 2018-08-27 06:45 | Diagnostic Imaging Report ---
CHEST SINGLE (PORTABLE), 08/27/2018 5:00 AM Technique: CHEST SINGLE (PORTABLE) Comparison: 08/25/2018 Clinical history: Congestive heart failure Findings: See Impression Impression: Severely limited study with motion artifact. Left costophrenic angle excluded. 1. Lines/Tubes: Right IJ central venous catheter again noted, tip poorly visualized. 2. Stable enlarged cardiomediastinal silhouette. Signed by: Dr Jenna Carney MD on 08/27/2018 6:41 AM
--- NOTE | 2018-08-27 08:25 | NUR ---
Paged Dr. Alexis regarding patients worsening confusion and agitation
[2018-08-27] MEDS: PANTOPRAZOLE SOD 40 MG TABEC PO SCH (08:51)
[2018-08-27] MEDS: RIFAXIMIN 550 MG TABLET PO SCH ×2 (08:51→17:31)
[2018-08-27] MEDS: ENOXAPARIN 30 MG/0.3 ML SYR SC SCH (08:51)
[2018-08-27] MEDS: PREDNISONE 5 MG TAB PO SCH (08:51)
[2018-08-27] MEDS: LACTULOSE SYRUP 20 GM/30 ML UDC PO SCH ×2 (09:00→17:31)
[2018-08-27] MEDS: CHLORDIAZEPOXIDE HCL 25 MG CAP PO SCH ×3 (09:22→22:06)
[2018-08-27 10:16] LABS: BAND NEUTROPHILS % (MANUAL) 8 %; EOSINOPHILS % (MANUAL) 3 % (0-7); LYMPHOCYTES % (MANUAL) 25 % (19-48); MONOCYTES % (MANUAL) 22 % (3.4-9.0); NEUTROPHILS % (MANUAL) 42 % (40-74)
[2018-08-27 10:17] LABS: PLATELET ESTIMATE ADEQUATE; PLATELET MORPHOLOGY COMMENT NORMAL; RBC MORPHOLOGY COMMENT NORMAL
[2018-08-27] MEDS: CYANOCOBALAMIN INJ 1,000 MCG/ML VIAL IM SCH (17:31)
[2018-08-27] MEDS: THIAMINE HCL INJ 100 MG/ML 2ML VIAL IV SCH (17:31)
[2018-08-27] MEDS: FOLIC ACID 1 MG TAB PO SCH (17:31)
[2018-08-27] MEDS: DIPHENHYDRAMINE HCL 25 MG CAP PO SCH (22:06)
[2018-08-28] VITALS (24 sets, daily range): BP systolic 91–170; BP diastolic 67–96
[2018-08-28] MEDS: CHLORDIAZEPOXIDE HCL 25 MG CAP PO SCH ×5 (03:00→20:37)
[2018-08-28 04:55] LABS: BASOPHILS # (AUTO) 0.1 (0.0-0.1); BASOPHILS % 1.1 % (0.0-1.0); EOSINOPHILS # (AUTO) 0.2 (0.0-0.4); EOSINOPHILS % 2.3 % (0.0-6.0); HEMATOCRIT 26.7 % (38.2-49.6); HEMOGLOBIN 8.8 g/dL (14.0-18.0); LYMPHOCYTES # (AUTO) 1.2 (1.0-3.2); LYMPHOCYTES % 12.6 % (18.0-39.1); MEAN CORPUSCULAR HEMOGLOBIN 34.4 pg (28-32); MEAN CORPUSCULAR VOLUME 104.3 fL (81-99); MONOCYTES # (AUTO) 1.1 (0.2-0.8); MONOCYTES % 11.7 % (4.4-11.3); NEUTROPHILS # (AUTO) 5.7 (2.1-6.9); NEUTROPHILS % 61.4 % (38.7-80.0); PLATELET COUNT 156 x10e3/uL (140-360); RED BLOOD COUNT 2.56 x10e6/uL (4.3-5.7); RED CELL DISTRIBUTION WIDTH 15.2 % (11.7-14.4)
[2018-08-28 05:16] LABS: ALBUMIN 2.1 g/dL (3.5-5.0); ALBUMIN/GLOBULIN RATIO 0.6 (0.8-2.0); ANION GAP 17.9 mmol/L (8-16); CALCIUM 8.9 mg/dL (8.4-10.2); CREATININE, SERUM 1.55 mg/dL (0.72-1.25); POTASSIUM 3.9 mmol/L (3.5-5.1)
[2018-08-28 05:35] LABS: MAGNESIUM 1.1 MG/DL (1.3-2.1)
[2018-08-28] MEDS ORDERED: MAGNESIUM SULFATE 2GM/50ML 100 ML IV ONE (06:15)
[2018-08-28 06:49] LABS: BAND NEUTROPHILS % (MANUAL) 11 %; LYMPHOCYTES % (MANUAL) 17 % (19-48); METAMYELOCYTES % (MANUAL) 10 % (0-0); MONOCYTES % (MANUAL) 7 % (3.4-9.0); MYELOCYTES % (MANUAL) 2 % (0-0); NEUTROPHILS % (MANUAL) 51 % (40-74); STOMATOCYTES SLIGHT
[2018-08-28 06:51] LABS: ANISOCYTOSIS SLIGHT; PLATELET ESTIMATE ADEQUATE; PLATELET MORPHOLOGY COMMENT NORMAL
[2018-08-28] MEDS: PANTOPRAZOLE SOD 40 MG TABEC PO SCH (07:41)
[2018-08-28] MEDS: CYANOCOBALAMIN INJ 1,000 MCG/ML VIAL IM SCH (08:39)
[2018-08-28] MEDS: LACTULOSE SYRUP 20 GM/30 ML UDC PO SCH ×2 (08:48→16:20)
[2018-08-28] MEDS: PREDNISONE 5 MG TAB PO SCH (08:48)
[2018-08-28] MEDS: FOLIC ACID 1 MG TAB PO SCH ×2 (08:48→16:20)
[2018-08-28] MEDS: RIFAXIMIN 550 MG TABLET PO SCH ×2 (08:48→16:20)
[2018-08-28] MEDS: THIAMINE HCL INJ 100 MG/ML 2ML VIAL IV SCH (08:48)
[2018-08-28] MEDS: ENOXAPARIN 30 MG/0.3 ML SYR SC SCH (08:48)
[2018-08-28] MEDS ORDERED: MAGNESIUM SULF 1GRAM/DEXTROSE 100 ML IV ONE (09:30)
--- NOTE | 2018-08-28 09:57 | NUR ---
complete bed bath with linen change provide. between buttocks very excoriated so calazime started.
[2018-08-28] MEDS ORDERED: SODIUM CHLORIDE 0.9% 1000ML 1,000 ML ONE (12:17)
[2018-08-28] MEDS: DIPHENHYDRAMINE HCL 25 MG CAP PO SCH (21:00)
[2018-08-28] MEDS ORDERED: HEPARIN SOD (PORCINE) 1000 UNIT/ML SDV ONE (22:18)
[2018-08-29] VITALS (17 sets, daily range): BP systolic 114–163; BP diastolic 54–107
[2018-08-29] MEDS: DIPHENHYDRAMINE HCL 25 MG CAP PO SCH (00:40)
[2018-08-29] MEDS: CHLORDIAZEPOXIDE HCL 25 MG CAP PO SCH ×5 (00:40→17:08)
[2018-08-29 05:23] LABS: BASOPHILS # (AUTO) 0.1 (0.0-0.1); BASOPHILS % 1.2 % (0.0-1.0); EOSINOPHILS # (AUTO) 0.2 (0.0-0.4); EOSINOPHILS % 2.3 % (0.0-6.0); HEMATOCRIT 27.3 % (38.2-49.6); HEMOGLOBIN 8.8 g/dL (14.0-18.0); LYMPHOCYTES # (AUTO) 1.2 (1.0-3.2); LYMPHOCYTES % 13.4 % (18.0-39.1); MEAN CORPUSCULAR HEMOGLOBIN 34.2 pg (28-32); MEAN CORPUSCULAR HGB CONC 32.2 g/dL (31-35); MEAN CORPUSCULAR VOLUME 106.2 fL (81-99); MONOCYTES # (AUTO) 0.9 (0.2-0.8); MONOCYTES % 10.3 % (4.4-11.3); NEUTROPHILS # (AUTO) 5.7 (2.1-6.9); NEUTROPHILS % 61.9 % (38.7-80.0); PLATELET COUNT 144 x10e3/uL (140-360); RED BLOOD COUNT 2.57 x10e6/uL (4.3-5.7); RED CELL DISTRIBUTION WIDTH 15.7 % (11.7-14.4)
[2018-08-29 05:37] LABS: ALANINE AMINOTRANSFERASE 59 IU/L (0-55); ALBUMIN 2.1 g/dL (3.5-5.0); ALBUMIN/GLOBULIN RATIO 0.5 (0.8-2.0); ALKALINE PHOSPHATASE 316 IU/L (40-150); ANION GAP 14.7 mmol/L (8-16); BLOOD UREA NITROGEN 12 mg/dL (7-26); BUN/CREATININE RATIO 15 (6-25); CALCIUM 8.6 mg/dL (8.4-10.2); CARBON DIOXIDE 27 mmol/L (22-29); CHLORIDE 97 mmol/L (98-107); CREATININE, SERUM 0.79 mg/dL (0.72-1.25); EST GLOMERULAR FILTRATION RATE > 60 ML/MIN (60-); GLUCOSE 103 mg/dL (74-118); POTASSIUM 3.7 mmol/L (3.5-5.1); SODIUM 135 mmol/L (136-145)
[2018-08-29 05:41] LABS: ALBUMIN 2.2 g/dL (3.5-5.0); BILIRUBIN,DIRECT 5.9 mg/dL (0.0-0.5)
[2018-08-29] MEDS ORDERED: MAGNESIUM SULFATE 2GM/50ML 50 ML IV ONE (07:00)
[2018-08-29] MEDS: PANTOPRAZOLE SOD 40 MG TABEC PO SCH (07:25)
[2018-08-29] MEDS: LACTULOSE SYRUP 20 GM/30 ML UDC PO SCH ×2 (09:11→17:08)
[2018-08-29] MEDS: THIAMINE HCL INJ 100 MG/ML 2ML VIAL IV SCH (09:13)
[2018-08-29] MEDS: ERGOCALCIFEROL 50,000 UNIT CAP PO SCH (09:13)
[2018-08-29] MEDS: CYANOCOBALAMIN INJ 1,000 MCG/ML VIAL IM SCH (09:13)
[2018-08-29] MEDS: FOLIC ACID 1 MG TAB PO SCH ×2 (09:13→17:08)
[2018-08-29] MEDS: PREDNISONE 5 MG TAB PO SCH (09:13)
[2018-08-29] MEDS: RIFAXIMIN 550 MG TABLET PO SCH ×2 (09:15→17:08)
[2018-08-29] MEDS: ENOXAPARIN 30 MG/0.3 ML SYR SC SCH (09:15)
[2018-08-29 10:26] LABS: BAND NEUTROPHILS % (MANUAL) 3 %; EOSINOPHILS % (MANUAL) 2 % (0-7); LYMPHOCYTES % (MANUAL) 19 % (19-48); METAMYELOCYTES % (MANUAL) 5 % (0-0); MONOCYTES % (MANUAL) 4 % (3.4-9.0); NEUTROPHILS % (MANUAL) 66 % (40-74); NUCLEATED RED BLOOD CELLS 1; PLATELET ESTIMATE ADEQUATE; PLATELET MORPHOLOGY COMMENT FEW LARGE
[2018-08-29 10:27] LABS: ANISOCYTOSIS SLIGHT; HYPOCHROMASIA SLIGHT; RBC MORPHOLOGY COMMENT NORMAL
--- NOTE | 2018-08-29 17:43 | NUR ---
notified dialysis not to do dialysis in am per Dr Rosenberg.
[2018-08-30] VITALS (21 sets, daily range): BP systolic 120–149; BP diastolic 57–107
[2018-08-30] MEDS: CHLORDIAZEPOXIDE HCL 25 MG CAP PO SCH ×4 (05:06→21:19)
[2018-08-30 05:17] LABS: ALANINE AMINOTRANSFERASE 59 IU/L (0-55); ALBUMIN 2.1 g/dL (3.5-5.0); ALKALINE PHOSPHATASE 320 IU/L (40-150); ANION GAP 15.8 mmol/L (8-16); BILIRUBIN,DIRECT 5.3 mg/dL (0.0-0.5); BLOOD UREA NITROGEN 12 mg/dL (7-26); BUN/CREATININE RATIO 14 (6-25); CALCIUM 8.9 mg/dL (8.4-10.2); CARBON DIOXIDE 28 mmol/L (22-29); CHLORIDE 100 mmol/L (98-107); CREATININE, SERUM 0.83 mg/dL (0.72-1.25); EST GLOMERULAR FILTRATION RATE > 60 ML/MIN (60-); GLUCOSE 113 mg/dL (74-118); POTASSIUM 3.8 mmol/L (3.5-5.1); SODIUM 140 mmol/L (136-145)
--- NOTE | 2018-08-30 07:04 | NUR ---
MD Kingsley paged for Mg. 1.3, awaiting response
[2018-08-30] MEDS ORDERED: MAGNESIUM SULF 1GRAM/DEXTROSE 100 ML IV ONE (07:15)
[2018-08-30] MEDS ORDERED: MAGNESIUM SULFATE 2GM/50ML 50 ML IV ONE (07:15)
[2018-08-30] MEDS: PANTOPRAZOLE SOD 40 MG TABEC PO SCH (09:43)
[2018-08-30] MEDS: LACTULOSE SYRUP 20 GM/30 ML UDC PO SCH ×2 (09:43→17:35)
[2018-08-30] MEDS: FOLIC ACID 1 MG TAB PO SCH ×2 (09:43→17:35)
[2018-08-30] MEDS: MAGNESIUM OXIDE 400 MG TAB PO SCH ×2 (09:43→17:35)
[2018-08-30] MEDS: RIFAXIMIN 550 MG TABLET PO SCH ×2 (09:43→17:35)
[2018-08-30] MEDS: ENOXAPARIN 30 MG/0.3 ML SYR SC SCH (09:43)
[2018-08-30] MEDS: PREDNISONE 5 MG TAB PO SCH (09:43)
[2018-08-30] MEDS: THIAMINE HCL INJ 100 MG/ML 2ML VIAL IV SCH (11:18)
--- NOTE | 2018-08-30 11:44 | NUR ---
RECEIVED ORDER FOR LT[facility] EVAL. CALL PLACED TO PT.'S ; CHUCK @ [phone]. NO ANSWER. LEFT VM.
--- NOTE | 2018-08-30 15:00 | NUR ---
DISCUSSED DC PLAN W DR. Linda ESCOBAR. AGREED TO AN LTAC EVAL. MET WITH THE , DAD AND PT AT THE BEDSIDE. PT IS CONFUSED. DISCUSSED LTAC. FAMILY VERBALIZED UNDERSTANDING. PROVIDED CHOICE. CHOSE THE [facility]. CHOICE LETTER SIGNED. COPY TO PLACED IN CHART.
--- NOTE | 2018-08-30 15:22 | NUR ---
WOUND CARE - PUP SCREEN - Pt in bed calm with sporadic moments of lethargic arousals. Attempts to follow direction but pushes back when attempting to turn to side. - Slurred speech SKIN CHECK PERFORMED: - Right Foot 2nd Toe - Traumatic Injury with small blister/ hematoma to dorsal aspect of toe present on admission. Appears Stable. - Sacral Area - Linear blanched area to mid gluteal fold consistent with overmoisture. Non-Pressure related. - Bilateral heels- pink & dry, no pressure ulcers identified. - Erosion to perirectal area. Patient on Lactulose for elevated ammonia levels. RECOMMENDATION: 1. Perirectal& Bilateral Gluteal Areas- - Wash area with mild soap and water then pat dry thoroughly. - Apply Lantiseptic Cream TID and PRN Soiling. 2. Left Foot 2nd toe- Venelex and Leave Open To Air Daily. 3. Continue Alternating Pressure Air Mattress 4. Turn and Reposition q2h. 5. Offload Heels with pillows while in bed. Addendum: 08/30/18 at 1528 by Enrike Ca RN Amended: Links added.
[2018-08-30] MEDS: LANOLIN 4.5 OZ OINT TP SCH ×2 (18:34→21:19)
[2018-08-30] MEDS: DIPHENHYDRAMINE HCL 25 MG CAP PO SCH (21:19)
[2018-08-30] MEDS: HYDROMORPHONE 2MG/ML 2 MG/ML ML IV PRN (23:00)
[2018-08-31] VITALS (22 sets, daily range): BP systolic 93–196; BP diastolic 62–103
[2018-08-31] MEDS: CHLORDIAZEPOXIDE HCL 25 MG CAP PO SCH ×4 (02:37→20:29)
[2018-08-31 04:57] LABS: BASOPHILS # (AUTO) 0.1 (0.0-0.1); EOSINOPHILS # (AUTO) 0.3 (0.0-0.4); EOSINOPHILS % 2.6 % (0.0-6.0); HEMATOCRIT 29.5 % (38.2-49.6); HEMOGLOBIN 9.3 g/dL (14.0-18.0); LYMPHOCYTES # (AUTO) 1.5 (1.0-3.2); LYMPHOCYTES % 14.5 % (18.0-39.1); MEAN CORPUSCULAR HEMOGLOBIN 33.6 pg (28-32); MEAN CORPUSCULAR HGB CONC 31.5 g/dL (31-35); MEAN CORPUSCULAR VOLUME 106.5 fL (81-99); MONOCYTES # (AUTO) 0.8 (0.2-0.8); MONOCYTES % 7.7 % (4.4-11.3); NEUTROPHILS # (AUTO) 6.7 (2.1-6.9); NEUTROPHILS % 66.2 % (38.7-80.0); PLATELET COUNT 157 x10e3/uL (140-360); RED BLOOD COUNT 2.77 x10e6/uL (4.3-5.7); RED CELL DISTRIBUTION WIDTH 16.1 % (11.7-14.4)
[2018-08-31 05:20] LABS: ALANINE AMINOTRANSFERASE 59 IU/L (0-55); ALBUMIN 2.1 g/dL (3.5-5.0); ALBUMIN/GLOBULIN RATIO 0.5 (0.8-2.0); ALKALINE PHOSPHATASE 328 IU/L (40-150); ANION GAP 15.6 mmol/L (8-16); BLOOD UREA NITROGEN 11 mg/dL (7-26); BUN/CREATININE RATIO 13 (6-25); CARBON DIOXIDE 29 mmol/L (22-29); CHLORIDE 103 mmol/L (98-107); CREATININE, SERUM 0.84 mg/dL (0.72-1.25); EST GLOMERULAR FILTRATION RATE > 60 ML/MIN (60-); GLUCOSE 122 mg/dL (74-118); MAGNESIUM 1.4 MG/DL (1.3-2.1); POTASSIUM 3.6 mmol/L (3.5-5.1); SODIUM 144 mmol/L (136-145)
--- NOTE | 2018-08-31 06:29 | NUR ---
STEPHANIE WOO CALLED CODE BLUE PATIENT HAVING AGONAL BREATHING. Addendum: 08/31/18 at 0708 by Divya Chandler RN SEE CODE SHEET FOR FURTHER DETAILS
[2018-08-31] MEDS ORDERED: PROPOFOL IV EMULSION 10MG/ML 100 ML ONE (06:57)
[2018-08-31] MEDS ORDERED: PROPOFOL IV EMULSION 10 MG/ML 20 ML VIAL IV PRN (07:00)
[2018-08-31] MEDS ORDERED: SODIUM BICARBONATE 8.4% SYRING 100 ML ONE (07:01)
[2018-08-31 07:11] LABS: BASOPHILS # (AUTO) 0.2 (0.0-0.1); BASOPHILS % 1.2 % (0.0-1.0); EOSINOPHILS # (AUTO) 0.3 (0.0-0.4); EOSINOPHILS % 1.9 % (0.0-6.0); HEMATOCRIT 30.2 % (38.2-49.6); HEMOGLOBIN 9.3 g/dL (14.0-18.0); LYMPHOCYTES # (AUTO) 2.2 (1.0-3.2); LYMPHOCYTES % 16.1 % (18.0-39.1); MEAN CORPUSCULAR HEMOGLOBIN 33.9 pg (28-32); MEAN CORPUSCULAR HGB CONC 30.8 g/dL (31-35); MEAN CORPUSCULAR VOLUME 110.2 fL (81-99); MONOCYTES % 7.2 % (4.4-11.3); NEUTROPHILS # (AUTO) 8.4 (2.1-6.9); NEUTROPHILS % 60.5 % (38.7-80.0); PLATELET COUNT 148 x10e3/uL (140-360); RED BLOOD COUNT 2.74 x10e6/uL (4.3-5.7); RED CELL DISTRIBUTION WIDTH 16.2 % (11.7-14.4)
[2018-08-31] MEDS: PROPOFOL IV EMULSION 10MG/ML 100 ML IV SCH (07:15)
[2018-08-31 07:18] LABS: ABG PCO2 65 mmHg (41-51); ABG PH 7.18 (7.31-7.41)
[2018-08-31 07:19] LABS: ABG HCO3 24 mmol/L (23-28); ABG PO2 310 mmHg (80-105)
--- NOTE | 2018-08-31 07:19 | NUR ---
DR Jelani ESCOBAR WAS PAGED BY STEPHANIE WOO NO RETURN CALL BACK. INFORMED JEEVAN WOO. FULL REPORT GIVEN TO JEEVAN AT BEDSIDE
--- NOTE | 2018-08-31 07:27 | Diagnostic Imaging Report ---
Examination: Single AP view of the chest. COMPARISON: 08/27/2018 INDICATION: Endotracheal tube placement DISCUSSION: Interval intubation. The tip of the endotracheal tube projects approximately 3.5 cm above the abel. Rectangular radiopaque artifact limits evaluation of the left lower lung. Stable position of right internal jugular high flow central venous catheter, with the tip projecting over the low superior vena cava. Lungs remain relatively well inflated with minimal linear opacity in the lung bases, likely subsegmental atelectasis. Stable enlargement of the cardiac silhouette with central venous congestion. IMPRESSION: Interval intubation, with the tip of the endotracheal tube projecting approximately 3.5 cm above the abel. Stable position of right internal jugular high flow central venous catheter. Stable cardiomegaly with pulmonary venous congestion. Bibasilar subsegmental atelectasis. Signed by: Dr. Long Verma M.D. on 08/31/2018 7:24 AM
[2018-08-31] MEDS: PANTOPRAZOLE SOD 40 MG TABEC PO SCH (07:30)
[2018-08-31] MEDS ORDERED: NOREPINEPHRINE 8 MG/D5W 250 ML 250 ML ONE (07:35)
[2018-08-31 07:39] LABS: CREATINE KINASE MB 0.4 ng/mL (0-5.0)
[2018-08-31] MEDS ORDERED: SODIUM CHLORIDE 0.9% 1000ML 1,000 ML ONE (07:42)
--- NOTE | 2018-08-31 07:43 | NUR ---
SPOKE WITH DR WETZEL AND INFORMED OF CONSULT, NEW ORDERS RECEIVED
[2018-08-31] MEDS ORDERED: SODIUM CHLORIDE 0.9% 100 ML 100 ML IV SCH (07:45)
[2018-08-31] MEDS ORDERED: NOREPINEPHRINE INJ 4MG/4ML 8 MG in DEXTROSE 5% 250ML 250 ML IV SCH (07:45)
[2018-08-31 07:53] LABS: ALANINE AMINOTRANSFERASE 61 IU/L (0-55); ALBUMIN 1.9 g/dL (3.5-5.0); ALBUMIN/GLOBULIN RATIO 0.5 (0.8-2.0); ALKALINE PHOSPHATASE 312 IU/L (40-150); BLOOD UREA NITROGEN 13 mg/dL (7-26); BUN/CREATININE RATIO 12 (6-25); CALCIUM 8.5 mg/dL (8.4-10.2); CARBON DIOXIDE 29 mmol/L (22-29); CHLORIDE 103 mmol/L (98-107); CREATININE, SERUM 1.12 mg/dL (0.72-1.25); EST GLOMERULAR FILTRATION RATE > 60 ML/MIN (60-); GLUCOSE 136 mg/dL (74-118); SODIUM 151 mmol/L (136-145)
--- NOTE | 2018-08-31 07:57 | NUR ---
ASSESSMENT: Spiritual Distress Customer Experience Leader responded to [employer]. Pt's overwhelmed at pt's illness. Pt's expressed emotions thru words and tears. Intervention: Provided calming pastoral presence. Provided prayer. Facilitated conversation between physician and pt's . Outcome: Will continue to follow as able. RAMÓN Woodslain Spiritual Care Department O: [phone] Pager: [phone] ([phone] number calling from)
--- NOTE | 2018-08-31 08:00 | NUR ---
Baseline TOF 4/4 at a strength setting of 6
[2018-08-31] MEDS ORDERED: SODIUM CHLORIDE 0.9% 500ML 500 ML ONE (08:07)
[2018-08-31 08:39] LABS: INR 1.2; PROTHROMBIN TIME 16.3 seconds (11.9-14.5)
[2018-08-31 08:40] LABS: PARTIAL THROMBOPLASTIN TIME 33.2 seconds (23.8-35.5)
[2018-08-31] MEDS ORDERED: MIDAZOLAM HCL 2 MG/2 ML VIAL IV STA (08:42)
[2018-08-31] MEDS ORDERED: MIDAZOLAM HCL 2 MG/2 ML VIAL ONE (08:42)
[2018-08-31] MEDS ORDERED: CISATRACURIUM BESYLATE 100 MG in SODIUM CHLORIDE 0.9% 100 ML IV PRN (08:45)
[2018-08-31] MEDS ORDERED: CISATRACURIUM BESYLATE 2 MG/ML IV NR (08:45)
[2018-08-31 08:53] LABS: ANISOCYTOSIS SLIGHT; BAND NEUTROPHILS % (MANUAL) 2 %; EOSINOPHILS % (MANUAL) 2 % (0-7); HYPOCHROMASIA SLIGHT; LYMPHOCYTES % (MANUAL) 12 % (19-48); MONOCYTES % (MANUAL) 10 % (3.4-9.0); MYELOCYTES % (MANUAL) 3 % (0-0); NEUTROPHILS % (MANUAL) 67 % (40-74); PLATELET ESTIMATE ADEQUATE; PLATELET MORPHOLOGY COMMENT FEW GIANT; PROMYELOCYTES % (MANUAL) 2 % (0-0); RBC MORPHOLOGY COMMENT NORMAL
[2018-08-31] MEDS: LACTULOSE SYRUP 20 GM/30 ML UDC PO SCH ×2 (09:00→17:00)
[2018-08-31] MEDS: FENTANYL CITRATE INJ 2000 MCG in SODIUM CHLORIDE 0.9% 210 ML IV PRN (09:00)
[2018-08-31] MEDS: THIAMINE HCL INJ 100 MG/ML 2ML VIAL IV SCH (09:00)
[2018-08-31] MEDS: MAGNESIUM OXIDE 400 MG TAB PO SCH ×2 (09:00→17:00)
[2018-08-31] MEDS: LANOLIN 4.5 OZ OINT TP SCH ×3 (09:00→20:28)
[2018-08-31] MEDS: ENOXAPARIN 30 MG/0.3 ML SYR SC SCH (09:00)
[2018-08-31] MEDS: FOLIC ACID 1 MG TAB PO SCH ×2 (09:00→17:00)
[2018-08-31] MEDS: RIFAXIMIN 550 MG TABLET PO SCH ×2 (09:00→17:00)
[2018-08-31] MEDS: MIDAZOLAM HCL 25 MG in SODIUM CHLORIDE 0.9% 50ML 45 ML IV PRN ×3 (09:00→20:02)
--- NOTE | 2018-08-31 09:00 | NUR ---
TOF 0/4, nimbex decreased from 1mcg/kg/min to 0.8mcg/kg/min.
[2018-08-31] MEDS ORDERED: SODIUM CHLORIDE 0.9% 1000ML 2,000 ML ONE (09:04)
[2018-08-31] MEDS ORDERED: ACETAMINOPHEN 650 MG SUPP PR PRN (09:15)
[2018-08-31] MEDS ORDERED: DEXTROSE 50% SYRINGE 50 ML IV PRN (09:15)
[2018-08-31] MEDS ORDERED: EYE LUBRICANT OPTH OINT 3.5GM TUBE OP PRN (09:15)
[2018-08-31] MEDS: CISATRACURIUM BESYLATE 100 MG in SODIUM CHLORIDE 0.9% 100 ML 50 ML IV PRN ×2 (09:26→21:06)
[2018-08-31] MEDS ORDERED: SODIUM CHLORIDE 0.45% 1,000 ML ONE (09:45)
--- NOTE | 2018-08-31 10:00 | NUR ---
TOF 0/4 Decrease nimbex from 0.8mcg/kg/min to 0.6mcg/kg/min
--- NOTE | 2018-08-31 11:00 | NUR ---
TOF 0/4 decreased Nimbex to 0.5mcg/kg/min
[2018-08-31] MEDS: SODIUM CHLORIDE 0.45% 1,000 ML IV SCH ×2 (11:05→23:40)
[2018-08-31] MEDS: INSULIN REGULAR, HUMAN 100 UNIT/1 ML 3ML VIAL SQ SCH ×2 (12:00→18:00)
--- NOTE | 2018-08-31 12:00 | NUR ---
TOF 2/4, nimbex at 0.5mcg/kg/min
--- NOTE | 2018-08-31 12:01 | NUR ---
Code called on pt this morning and intubated. Holding therapy due to change in status. Will need new PT orders to resume. Addendum: 08/31/18 at 1202 by Quita Mendoza PT Amended: Links added.
--- NOTE | 2018-08-31 13:00 | NUR ---
TOF 2/4
[2018-08-31 13:06] LABS: LYMPHOCYTES % (MANUAL) 13 % (19-48); METAMYELOCYTES % (MANUAL) 2 % (0-0); MONOCYTES % (MANUAL) 6 % (3.4-9.0); MYELOCYTES % (MANUAL) 3 % (0-0); NEUTROPHILS % (MANUAL) 75 % (40-74); PROMYELOCYTES % (MANUAL) 1 % (0-0)
[2018-08-31 13:07] LABS: ANISOCYTOSIS SLIGHT; HYPOCHROMASIA SLIGHT; PLATELET ESTIMATE SLIGHTLY DECREASED; RBC MORPHOLOGY COMMENT NORMAL
[2018-08-31 13:08] LABS: PLATELET MORPHOLOGY COMMENT NORMAL
[2018-08-31] MEDS: EYE LUBRICANT OPTH OINT 3.5GM TUBE OP SCH ×4 (13:22→21:40)
[2018-08-31] MEDS: BALSAM PERU/CASTOR OIL 60 GM OINT...G. TP SCH (13:22)
[2018-08-31] MEDS: PANTOPRAZOLE 40 MG 10ML VIAL IV SCH (13:45)
[2018-08-31 13:51] LABS: BASOPHILS # (AUTO) 0.2 (0.0-0.1); BASOPHILS % 1.2 % (0.0-1.0); EOSINOPHILS # (AUTO) 0.1 (0.0-0.4); EOSINOPHILS % 0.6 % (0.0-6.0); HEMATOCRIT 29.1 % (38.2-49.6); HEMOGLOBIN 9.2 g/dL (14.0-18.0); LYMPHOCYTES # (AUTO) 1.2 (1.0-3.2); LYMPHOCYTES % 9.3 % (18.0-39.1); MEAN CORPUSCULAR HEMOGLOBIN 34.3 pg (28-32); MEAN CORPUSCULAR HGB CONC 31.6 g/dL (31-35); MEAN CORPUSCULAR VOLUME 108.6 fL (81-99); MONOCYTES # (AUTO) 0.6 (0.2-0.8); MONOCYTES % 5.1 % (4.4-11.3); NEUTROPHILS # (AUTO) 9.1 (2.1-6.9); NEUTROPHILS % 73.4 % (38.7-80.0); PLATELET COUNT 136 x10e3/uL (140-360); RED BLOOD COUNT 2.68 x10e6/uL (4.3-5.7); RED CELL DISTRIBUTION WIDTH 16.1 % (11.7-14.4)
--- NOTE | 2018-08-31 14:00 | NUR ---
TOF 4/4 Nimbex increased back to 0.8mcg/kg/min
[2018-08-31 14:10] LABS: INR 1.07; PARTIAL THROMBOPLASTIN TIME 32.5 seconds (23.8-35.5); PROTHROMBIN TIME 14.9 seconds (11.9-14.5)
[2018-08-31 14:11] LABS: ANION GAP 15.6 mmol/L (8-16); CALCIUM 8.6 mg/dL (8.4-10.2); CREATININE, SERUM 1.45 mg/dL (0.72-1.25); MAGNESIUM 1.4 MG/DL (1.3-2.1); PHOSPHORUS 3.9 MG/DL (2.3-4.7); POTASSIUM 3.6 mmol/L (3.5-5.1)
[2018-08-31 14:28] LABS: BILIRUBIN,DIRECT 4.9 mg/dL (0.0-0.5)
[2018-08-31 15:09] LABS: ABG HCO3 32 mmol/L (23-28)
[2018-08-31 15:11] LABS: ABG PCO2 58 mmHg (41-51); ABG PH 7.34 (7.31-7.41); ABG PO2 201 mmHg (80-105)
--- NOTE | 2018-08-31 16:18 | NUR ---
TOF 0/4 nimbex decreased to 0.6mcg/kg/min
--- NOTE | 2018-08-31 17:12 | NUR ---
Nutrition Screen Note RD Recommendation for Physician: Consider nutrition support via NGT when medically feasible. Plan of Care: RD following, monitoring for tolerance and adequacy Nutrition reason for involvement: Follow up/ Change of condition Primary Diagnose(s): LE cellulitis, hyponatremia, transaminitis PMH: no H&Pin chart Ht: 76in Wt: 392lb BMI: 53.2kg/m2 IBW: 202lb RD Assessment: (08/31) Pt with a change of condition. Pt Coded and was orally intubated and sedated now with a poor prognosis. Wt changes noted and RD is following. (08/24) Chart reviewed. Labs and meds reviewed. 53yo M, who is admitted for chest pain and LE cellulitis. Pt was discussed during AM rounds. Per RN, pt has no urine output with decreased kidney function. Negative cardiac markers. No hx of DM. Visited pt in the room. Pt reports eating very little in the last 2 years. UBW ~410lbs. No weight loss noted. Pt denies any nausea or vomiting at this time. LBM 08/23. Pt denies any chewing or swallowing issue. Pt quit drinking alcohol about 2 weeks ago. Prior to that, pt usually drinks 1 pint of vodka and 2-3 beer a day. Pt refused diet education. Will continue to monitor and follow. Current Diet: NPO Malnutrition Evaluation (08/24/18) The patient does not meet criteria for a specified degree of malnutrition at this time. Will re-evaluate at follow-up as appropriate. Diet Education Needs Assessment: Diet education indicated, pt is not interested. Nutrition Care Level: High due to a change of condition Vikram Chambers RD, LD, [facility]
--- NOTE | 2018-08-31 18:00 | NUR ---
TOF still 0/4 nimbex decreased to 0.5mcg/kg/min
--- NOTE | 2018-08-31 19:00 | NUR ---
Report received. Assumed care. Assessment done. See interventions. Pt on hypothermia protocol with temp currently 33.6 C. Orally intubated with 8.0 FR ETT secured @ 26cm at the lip. Vent settings: TV500, FIO2 50%, PRVC 16 & PEEP 5cm. IVs: 1/2NS @ 70ml/hr, Nimbex @ 0.5mcg/kg/min or 5.3 ml/hr, Fentanyl @ 125 mcg/hr or 15.6 ml/hr, & Versed @ 4mg/hr or 8ml/hr.
[2018-08-31 19:31] LABS: BASOPHILS # (AUTO) 0.1 (0.0-0.1); BASOPHILS % 0.8 % (0.0-1.0); EOSINOPHILS # (AUTO) 0.1 (0.0-0.4); HEMATOCRIT 28.6 % (38.2-49.6); HEMOGLOBIN 8.9 g/dL (14.0-18.0); LYMPHOCYTES # (AUTO) 1.5 (1.0-3.2); LYMPHOCYTES % 14.2 % (18.0-39.1); MEAN CORPUSCULAR HGB CONC 31.1 g/dL (31-35); MEAN CORPUSCULAR VOLUME 109.2 fL (81-99); MONOCYTES # (AUTO) 0.5 (0.2-0.8); MONOCYTES % 4.4 % (4.4-11.3); NEUTROPHILS # (AUTO) 7.6 (2.1-6.9); NEUTROPHILS % 70.6 % (38.7-80.0); PLATELET COUNT 114 x10e3/uL (140-360); RED BLOOD COUNT 2.62 x10e6/uL (4.3-5.7); RED CELL DISTRIBUTION WIDTH 16.2 % (11.7-14.4)
[2018-08-31 19:43] LABS: ALBUMIN 1.9 g/dL (3.5-5.0); ALBUMIN/GLOBULIN RATIO 0.5 (0.8-2.0); ANION GAP 15.4 mmol/L (8-16); CALCIUM 8.5 mg/dL (8.4-10.2); CREATININE, SERUM 1.43 mg/dL (0.72-1.25); MAGNESIUM 1.3 MG/DL (1.3-2.1); PHOSPHORUS 3.7 MG/DL (2.3-4.7); POTASSIUM 3.4 mmol/L (3.5-5.1)
--- NOTE | 2018-08-31 20:00 | NUR ---
TOF 0. Unable to get response.
--- NOTE | 2018-08-31 20:25 | NUR ---
Pericare done and ointment applied.
[2018-08-31] MEDS: DIPHENHYDRAMINE HCL 25 MG CAP PO SCH (20:29)
--- NOTE | 2018-08-31 22:00 | NUR ---
Central line care done to [facility].
--- NOTE | 2018-08-31 22:00 | NUR ---
TOF still 0/4.
[2018-08-31 22:07] LABS: ALPHA-1-ANTITRYPSIN 211 mg/dL (90-200)
[2018-09-01] VITALS (44 sets, daily range): BP systolic 78–128; BP diastolic 37–93
--- NOTE | 2018-09-01 | NUR ---
Still unable to get TOF. Nibex remains @ 0.5mcg/kg/min.
[2018-09-01 00:28] LABS: BASOPHILS # (AUTO) 0.1 (0.0-0.1); BASOPHILS % 1.2 % (0.0-1.0); EOSINOPHILS # (AUTO) 0.2 (0.0-0.4); HEMATOCRIT 27.3 % (38.2-49.6); HEMOGLOBIN 8.5 g/dL (14.0-18.0); LYMPHOCYTES # (AUTO) 1.5 (1.0-3.2); LYMPHOCYTES % 17.7 % (18.0-39.1); MEAN CORPUSCULAR HGB CONC 31.1 g/dL (31-35); MEAN CORPUSCULAR VOLUME 109.2 fL (81-99); MONOCYTES # (AUTO) 0.3 (0.2-0.8); MONOCYTES % 3.6 % (4.4-11.3); NEUTROPHILS # (AUTO) 5.7 (2.1-6.9); NEUTROPHILS % 66.3 % (38.7-80.0); PLATELET COUNT 108 x10e3/uL (140-360); RED CELL DISTRIBUTION WIDTH 16.1 % (11.7-14.4)
[2018-09-01 00:31] LABS: INR 1.08
[2018-09-01 00:32] LABS: PARTIAL THROMBOPLASTIN TIME 34.7 seconds (23.8-35.5)
[2018-09-01 00:41] LABS: ALBUMIN 1.9 g/dL (3.5-5.0); ALBUMIN/GLOBULIN RATIO 0.5 (0.8-2.0); ANION GAP 14.2 mmol/L (8-16); CALCIUM 8.4 mg/dL (8.4-10.2); CREATININE, SERUM 1.38 mg/dL (0.72-1.25); MAGNESIUM 1.5 MG/DL (1.3-2.1); PHOSPHORUS 3.3 MG/DL (2.3-4.7); POTASSIUM 3.2 mmol/L (3.5-5.1)
--- NOTE | 2018-09-01 02:00 | NUR ---
TOF still unable to obtain. No changes. Core temp remains 33.1 deg C.
[2018-09-01] MEDS: EYE LUBRICANT OPTH OINT 3.5GM TUBE OP SCH ×6 (02:13→22:24)
[2018-09-01] MEDS: CHLORDIAZEPOXIDE HCL 25 MG CAP PO SCH ×4 (02:13→21:00)
[2018-09-01] MEDS: MIDAZOLAM HCL 25 MG in SODIUM CHLORIDE 0.9% 50ML 45 ML IV PRN ×2 (02:43→09:16)
--- NOTE | 2018-09-01 04:28 | NUR ---
VS stable. HR 35-40. Core temp 33.2 C.
[2018-09-01] MEDS: PROPOFOL IV EMULSION 10MG/ML 100 ML IV SCH ×2 (04:34→15:55)
[2018-09-01] MEDS: INSULIN REGULAR, HUMAN 100 UNIT/1 ML 3ML VIAL SQ SCH ×4 (06:00→18:00)
[2018-09-01 06:07] LABS: BASOPHILS # (AUTO) 0.1 (0.0-0.1); EOSINOPHILS # (AUTO) 0.1 (0.0-0.4); EOSINOPHILS % 1.7 % (0.0-6.0); HEMATOCRIT 27.6 % (38.2-49.6); HEMOGLOBIN 8.5 g/dL (14.0-18.0); LYMPHOCYTES # (AUTO) 1.3 (1.0-3.2); LYMPHOCYTES % 16.7 % (18.0-39.1); MEAN CORPUSCULAR HEMOGLOBIN 33.7 pg (28-32); MEAN CORPUSCULAR HGB CONC 30.8 g/dL (31-35); MEAN CORPUSCULAR VOLUME 109.5 fL (81-99); MONOCYTES # (AUTO) 0.3 (0.2-0.8); MONOCYTES % 3.5 % (4.4-11.3); NEUTROPHILS # (AUTO) 5.3 (2.1-6.9); NEUTROPHILS % 68.1 % (38.7-80.0); RED BLOOD COUNT 2.52 x10e6/uL (4.3-5.7); RED CELL DISTRIBUTION WIDTH 16.1 % (11.7-14.4)
[2018-09-01 06:20] LABS: INR 1.05; PROTHROMBIN TIME 14.7 seconds (11.9-14.5)
[2018-09-01 06:21] LABS: PARTIAL THROMBOPLASTIN TIME 36.4 seconds (23.8-35.5)
[2018-09-01 06:30] LABS: ALBUMIN 1.8 g/dL (3.5-5.0); ALBUMIN/GLOBULIN RATIO 0.5 (0.8-2.0); CALCIUM 8.4 mg/dL (8.4-10.2); CREATININE, SERUM 1.44 mg/dL (0.72-1.25); MAGNESIUM 1.5 MG/DL (1.3-2.1); PHOSPHORUS 3.2 MG/DL (2.3-4.7)
--- NOTE | 2018-09-01 07:00 | NUR ---
TOF 2/4
[2018-09-01 07:15] LABS: BAND NEUTROPHILS % (MANUAL) 5 %; EOSINOPHILS % (MANUAL) 3 % (0-7); LYMPHOCYTES % (MANUAL) 24 % (19-48); METAMYELOCYTES % (MANUAL) 1 % (0-0); MYELOCYTES % (MANUAL) 2 % (0-0); NEUTROPHILS % (MANUAL) 63 % (40-74)
[2018-09-01 07:16] LABS: ANISOCYTOSIS SLIGHT; HYPOCHROMASIA MODERATE; PLATELET ESTIMATE SLIGHTLY DECREASED; RBC MORPHOLOGY COMMENT NORMAL; SMUDGE CELLS FEW; STOMATOCYTES SLIGHT
[2018-09-01 07:17] LABS: PLATELET MORPHOLOGY COMMENT FEW GIANT
[2018-09-01 07:18] LABS: PLATELET COUNT 87 x10e3/uL (140-360)
--- NOTE | 2018-09-01 08:00 | NUR ---
TOF 2/4
--- NOTE | 2018-09-01 08:23 | Consultation ---
DATE OF CONSULTATION: August 31, 2018 PULMONARY MEDICINE CONSULT REFERRING PHYSICIAN: Dr. Sweeney REASON FOR CONSULT: Respiratory failure. HISTORY: Mr. Phan is a pleasant 53-year-old gentleman with multiorgan failure. Patient was admitted to [facility] on August 23, 2018. Patient at that time had multiple blood derangements. Patient had low sodium. He has evidence of liver failure. He was admitted. Patient noted to have treatment for sepsis as well as decompensated liver failure. He went into kidney injury presumed due to acute tubular necrosis. Patient was having new onset of dialysis. He was treated as delirium tremens in the meanwhile. Patient was having slow progress and he had continued inpatient hospitalization in the ICU. On the night of August 31, 2018, the patient's nurse got called into room because the patient's apneic alarm was going on. Patient's nurse was in the room and patient went into full cardiac arrest. PEA rhythm noted. Patient had 12 minutes of CPR with return of spontaneous circulation. Today, patient with difficult intubation noted at that time and difficult airway. Patient on Levophed of 2 mcg per minute. Patient was having some recovery of renal failure reportedly, but now rebounded to anuric ranges of urine so far since the cardiac arrest. PAST MEDICAL HISTORY: Morbid obesity, hypertension, gout, other history limited. MEDICATIONS: Long medication list noted at this time. ALLERGIES: NO KNOWN DRUG ALLERGIES. SOCIAL HISTORY: Reportedly no smoking, no drinking, no drugs. Family including at bedside. FAMILY HISTORY: Noncontributory to this. REVIEW OF SYSTEMS: Cannot get as he is not revealing as he is altered and intubated. OBJECTIVE: VITAL SIGNS: Afebrile, vital signs noted mildly unstable per record. HEENT: Normocephalic, atraumatic. Intubated orally. NECK: Supple. Throat midline. LUNGS: Bilateral air entry, limited, rare rhonchi. CARDIOVASCULAR: S1, S2. No murmurs, rubs, or gallops. ABDOMEN: Soft, obese. EXTREMITIES: No clubbing, no cyanosis, there is 1+ leg edema. INTEGUMENT: No rash, no purpura. NEUROLOGIC: Limited evaluation. His pupils are 3 mm in diameter, but they are reactive. Otherwise, he is on paralytic with inability to exam. LABS: 4.0 potassium, 151 sodium, 29 bicarbonate, 13 BUN, 1.1 creatinine. 14 WBC count, 30 hematocrit, 148,000 platelets. 153 AST, ALT 61, 312 alkaline phosphatase. Total bilirubin is 5.8. Chest x-ray, very mild fluid overload, venous congestion, mostly clear. Endotracheal tube in place. IMPRESSION AND PLAN: 1. Status post cardiac arrest, 12 minutes pulseless electrical activity. 2. Presumed respiratory arrest primarily. 3. Morbid obesity. 4. Encephalopathy, multifactorial prior to arrest. Rule out anoxic ischemic encephalopathy. 5. Acute respiratory failure, intubated. 6. Cirrhosis reported. 7. Acute kidney failure, multifactorial including from ischemic and probably acute tubular necrosis with and without additional hepatorenal syndrome. 8. Hypernatremia. 9. Shock, mild. 10. Mild acute liver injury. 11. Possible alcohol dependency based on some history that was received. Continue multiorgan support. Maintain intubated. Target temperature management 34 to 36 degrees per our protocol. Continue serial blood levels and blood gases. Continue to follow urine output, but it appears the patient is going into fulminant renal failure again. Continue renal replacement as per dialysis expert. Avoid renal and hepatotoxic medications. Prognostication to follow over next 3 to 5 days based on how easily the patient awakens from targeted temperature management. Will follow along closely. Thank you very much, Dr. Sweeney for allowing me chance to participate in the care of Mr. Phan. Do not hesitate to contact me if I could help in any way. Greater than 30 minutes in direct management today and review of complicated care plan. Will follow along closely. Job#: [id number]
[2018-09-01] MEDS: PANTOPRAZOLE 40 MG 10ML VIAL IV SCH (09:00)
[2018-09-01] MEDS: MAGNESIUM OXIDE 400 MG TAB PO SCH ×2 (09:00→17:14)
[2018-09-01] MEDS: THIAMINE HCL INJ 100 MG/ML 2ML VIAL IV SCH (09:00)
[2018-09-01] MEDS: LACTULOSE SYRUP 20 GM/30 ML UDC PO SCH ×3 (09:00→17:22)
[2018-09-01] MEDS: ENOXAPARIN 30 MG/0.3 ML SYR SC SCH (09:00)
[2018-09-01] MEDS: FOLIC ACID 1 MG TAB PO SCH ×2 (09:00→16:04)
[2018-09-01] MEDS: RIFAXIMIN 550 MG TABLET PO SCH ×2 (09:00→16:04)
--- NOTE | 2018-09-01 09:00 | NUR ---
TOF 2/4
--- NOTE | 2018-09-01 10:00 | NUR ---
TOF 3/4
--- NOTE | 2018-09-01 10:35 | NUR ---
ASSESSMENT: Spiritual concern Pt's cautiously hopeful concerning 's illness. Pt's family at bedside. Intervention: Provided hospitality and empathic listening. Facilitated illness review. Provided information about availability of preschool substitute teacher. Outcome: Pt's family expressed appreciation for visit. [facility]ual [facility] Department O: [phone] Pager: [phone] ([phone] number calling from)
[2018-09-01 12:07] LABS: BASOPHILS # (AUTO) 0.1 (0.0-0.1); BASOPHILS % 1.2 % (0.0-1.0); EOSINOPHILS # (AUTO) 0.2 (0.0-0.4); HEMATOCRIT 27.5 % (38.2-49.6); HEMOGLOBIN 8.6 g/dL (14.0-18.0); LYMPHOCYTES # (AUTO) 1.1 (1.0-3.2); MEAN CORPUSCULAR HGB CONC 31.3 g/dL (31-35); MEAN CORPUSCULAR VOLUME 108.7 fL (81-99); MONOCYTES # (AUTO) 0.2 (0.2-0.8); MONOCYTES % 2.2 % (4.4-11.3); NEUTROPHILS # (AUTO) 6.5 (2.1-6.9); PLATELET COUNT 115 x10e3/uL (140-360); RED BLOOD COUNT 2.53 x10e6/uL (4.3-5.7); RED CELL DISTRIBUTION WIDTH 16.1 % (11.7-14.4)
[2018-09-01 12:22] LABS: INR 1.07; PROTHROMBIN TIME 14.9 seconds (11.9-14.5)
[2018-09-01 12:23] LABS: PARTIAL THROMBOPLASTIN TIME 36.6 seconds (23.8-35.5)
[2018-09-01 12:32] LABS: ALBUMIN 1.8 g/dL (3.5-5.0); ALBUMIN/GLOBULIN RATIO 0.5 (0.8-2.0); ANION GAP 13.1 mmol/L (8-16); CALCIUM 8.3 mg/dL (8.4-10.2); CREATININE, SERUM 1.64 mg/dL (0.72-1.25); MAGNESIUM 1.2 MG/DL (1.3-2.1); PHOSPHORUS 3.2 MG/DL (2.3-4.7); POTASSIUM 3.1 mmol/L (3.5-5.1)
[2018-09-01] MEDS ORDERED: SODIUM BICARBONATE 8.4% INJ 50 ML SYR IV ONE (12:34)
[2018-09-01] MEDS ORDERED: ATROPINE SULFATE 0.1 MG/ML 10ML SYR IV ONE (12:34)
[2018-09-01] MEDS ORDERED: SODIUM CHLORIDE FLUSH 10 ML SYR INJ ONE (12:34)
[2018-09-01] MEDS: LANOLIN 4.5 OZ OINT TP SCH ×3 (12:52→22:23)
[2018-09-01] MEDS: BALSAM PERU/CASTOR OIL 60 GM OINT...G. TP SCH (12:52)
--- NOTE | 2018-09-01 13:35 | NUR ---
Dr Lopez at bedside. turned off versed gtt per order
--- NOTE | 2018-09-01 14:03 | NUR ---
CALL FROM [facility] WITH [employer] INFO IF NEEDS DC SOIL SURVEYOR IS LYNDSEY CYR PH [phone] IN NETWORK SN[facility] ARE [facility] AND [facility]
[2018-09-01] MEDS: SODIUM CHLORIDE 0.45% 1,000 ML IV SCH (14:27)
--- NOTE | 2018-09-01 14:30 | NUR ---
patient moving fingers and toes and opening eyes
--- NOTE | 2018-09-01 15:44 | NUR ---
DENIAL RECEIVED FROM [facility]. DENIED BY THE MDR, PT CAN GO TO A LOWER LOC. NOTED THE PT'S CHANGE IN CONDITION. PER ICM A NEW EVAL CAN BE RESUBMITTED ONCE THE PT IS READY AND STABLE. ALSO P2P AVAILABLE X 14DAYS.
--- NOTE | 2018-09-01 16:29 | Progress Note ---
DATE: September 01, 2018 PULMONARY MEDICINE PROGRESS NOTE SUBJECTIVE: Mr. Phan was seen and examined at bedside. He continues to have ventilator status, intubated orally. The patient is on the rewarming aspect of targeted temperature management protocol. Urine output is very minimal. He is on Nimbex, fentanyl 125 per hour and Versed 2 mg per hour. There was no good opportunity to decrease the sedation any further. The patient is on IV fluids at 70 mL per hour. REVIEW OF SYSTEMS: Cannot get as he is intubated. OBJECTIVE VITALS: Afebrile. Vital signs noted per electronic record. GENERAL: No acute distress, but his conditions are taken over by medicines and life support. HEENT: Normocephalic, atraumatic. NECK: Supple. Throat midline. Large neck. CARDIOVASCULAR: S1, S2. No murmurs, rubs, or gallops. ABDOMEN: Soft, nontender. RESPIRATORY: Bilateral air entry, limited, a few rhonchi. EXTREMITIES: No clubbing. No cyanosis. There is 1+ edema. INTEGUMENT: No rash, no purpura. LABS: 3.1 potassium, 20 BUN, 1.6 creatinine, 8.6 white count, 28 hematocrit, 115 platelets. IMPRESSION AND PLAN 1. Status post cardiac arrest due to respiratory condition, 12 minutes pulseless electrical activity. 2. Acute respiratory failure, intubated. 3. Difficult airway. 4. Significant morbid obesity. 5. Acute kidney failure. 6. Dbrtg-uv-yratflf liver failure/injury. 7. Shock, resolved off pressors. 8. Encephalopathy, multifactorial. Continue targeted temperature management protocol. We will recheck chest x-ray tomorrow. We will significantly try to wean sedation and analgesics today that may decrease his neurologic exam. At this time, we will continue the warming phase and try to get good prognostication neurologically over the next few days. Concern that the sedation may limit the ability to prognosticate in a quick manner once the protocol is finished for hypothermia. I discussed with the family at length at bedside including the mother and the . Job#: [id number]
[2018-09-01] MEDS ORDERED: DEXMEDETOMIDINE HCL 200 MCG in SODIUM CHLORIDE 0.9% 50ML 48 ML IV PRN (16:30)
[2018-09-01] MEDS: ACETAMINOPHEN 325 MG/10 ML UDC NG PRN (17:15)
[2018-09-01 17:56] LABS: BASOPHILS # (AUTO) 0.2 (0.0-0.1); BASOPHILS % 1.2 % (0.0-1.0); EOSINOPHILS # (AUTO) 0.3 (0.0-0.4); EOSINOPHILS % 2.1 % (0.0-6.0); HEMATOCRIT 31.3 % (38.2-49.6); HEMOGLOBIN 9.8 g/dL (14.0-18.0); LYMPHOCYTES % 7.2 % (18.0-39.1); MEAN CORPUSCULAR HEMOGLOBIN 34.5 pg (28-32); MEAN CORPUSCULAR HGB CONC 31.3 g/dL (31-35); MEAN CORPUSCULAR VOLUME 110.2 fL (81-99); MONOCYTES # (AUTO) 0.5 (0.2-0.8); MONOCYTES % 3.1 % (4.4-11.3); NEUTROPHILS # (AUTO) 11.5 (2.1-6.9); NEUTROPHILS % 80.3 % (38.7-80.0); PLATELET COUNT 146 x10e3/uL (140-360); RED BLOOD COUNT 2.84 x10e6/uL (4.3-5.7); RED CELL DISTRIBUTION WIDTH 15.9 % (11.7-14.4)
[2018-09-01] MEDS ORDERED: ALBUMIN 25% 25GM 100ML 0.25 GM/ML BTL IV ONE (18:00)
[2018-09-01] MEDS ORDERED: ALBUMIN 25% 12.5GM 50ML 100 ML IV ONE (18:00)
[2018-09-01 18:16] LABS: ALBUMIN/GLOBULIN RATIO 0.5 (0.8-2.0); ANION GAP 16.6 mmol/L (8-16); CALCIUM 8.7 mg/dL (8.4-10.2); CREATININE, SERUM 2.1 mg/dL (0.72-1.25); MAGNESIUM 1.2 MG/DL (1.3-2.1); PHOSPHORUS 3.6 MG/DL (2.3-4.7); POTASSIUM 3.6 mmol/L (3.5-5.1)
[2018-09-01 18:18] LABS: INR 1.04; PARTIAL THROMBOPLASTIN TIME 36.4 seconds (23.8-35.5); PROTHROMBIN TIME 14.5 seconds (11.9-14.5)
[2018-09-01] MEDS ORDERED: MAGNESIUM SULF 1GRAM/DEXTROSE 100 ML IV ONE (18:30)
[2018-09-01] MEDS: DIPHENHYDRAMINE HCL 25 MG CAP PO SCH (21:00)
[2018-09-02] VITALS (26 sets, daily range): BP systolic 81–122; BP diastolic 34–95
[2018-09-02] MEDS: PROPOFOL IV EMULSION 10MG/ML 100 ML IV SCH (00:15)
[2018-09-02] MEDS: NOREPINEPHRINE INJ 4MG/4ML 8 MG in DEXTROSE 5% 250ML 250 ML IV PRN ×2 (01:55→16:43)
[2018-09-02] MEDS: EYE LUBRICANT OPTH OINT 3.5GM TUBE OP SCH ×4 (02:11→13:34)
[2018-09-02] MEDS: FENTANYL CITRATE INJ 2000 MCG in SODIUM CHLORIDE 0.9% 210 ML IV PRN ×2 (02:12→06:45)
[2018-09-02] MEDS: CHLORDIAZEPOXIDE HCL 25 MG CAP PO SCH ×2 (02:19→09:56)
[2018-09-02] MEDS ORDERED: DEXMEDETOMIDINE HCL 200 MCG in SODIUM CHLORIDE 0.9% 50ML 48 ML IV PRN (04:00)
[2018-09-02] MEDS: SODIUM CHLORIDE 0.45% 1,000 ML IV SCH ×2 (04:21→18:10)
[2018-09-02 05:53] LABS: BASOPHILS # (AUTO) 0.1 (0.0-0.1); BASOPHILS % 0.8 % (0.0-1.0); EOSINOPHILS # (AUTO) 0.4 (0.0-0.4); EOSINOPHILS % 2.4 % (0.0-6.0); HEMATOCRIT 28.3 % (38.2-49.6); HEMOGLOBIN 8.8 g/dL (14.0-18.0); LYMPHOCYTES # (AUTO) 2.3 (1.0-3.2); LYMPHOCYTES % 14.4 % (18.0-39.1); MEAN CORPUSCULAR HEMOGLOBIN 34.2 pg (28-32); MEAN CORPUSCULAR HGB CONC 31.1 g/dL (31-35); MEAN CORPUSCULAR VOLUME 110.1 fL (81-99); MONOCYTES # (AUTO) 0.7 (0.2-0.8); MONOCYTES % 4.4 % (4.4-11.3); NEUTROPHILS # (AUTO) 11.5 (2.1-6.9); NEUTROPHILS % 73.3 % (38.7-80.0); PLATELET COUNT 125 x10e3/uL (140-360); RED BLOOD COUNT 2.57 x10e6/uL (4.3-5.7); RED CELL DISTRIBUTION WIDTH 16.1 % (11.7-14.4)
[2018-09-02] MEDS: INSULIN REGULAR, HUMAN 100 UNIT/1 ML 3ML VIAL SQ SCH ×4 (06:00→18:00)
--- NOTE | 2018-09-02 06:04 | Diagnostic Imaging Report ---
EXAM: CHEST SINGLE (PORTABLE) DATE: 09/02/2018 5:00 AM INDICATION: Respiratory failure COMPARISON: 08/31/2018, no report available FINDINGS: Exam of limited diagnostic utility due to body habitus, low lung voids, motion artifact, and underpenetration. Lines and tubes not adequately assessed. Heart enlarged. Probable edema and/or pneumonia. IMPRESSION: Limited exam. Signed by: Dr. Jac Temple MD on 09/02/2018 6:00 AM
[2018-09-02 06:05] LABS: INR 1.05; PROTHROMBIN TIME 14.6 seconds (11.9-14.5)
[2018-09-02 06:06] LABS: PARTIAL THROMBOPLASTIN TIME 36.3 seconds (23.8-35.5)
[2018-09-02 06:33] LABS: ALBUMIN/GLOBULIN RATIO 0.5 (0.8-2.0); ANION GAP 15.7 mmol/L (8-16); CALCIUM 8.5 mg/dL (8.4-10.2); CREATININE, SERUM 2.81 mg/dL (0.72-1.25); MAGNESIUM 1.6 MG/DL (1.3-2.1); PHOSPHORUS 3.9 MG/DL (2.3-4.7); POTASSIUM 3.7 mmol/L (3.5-5.1)
[2018-09-02 07:25] LABS: ANISOCYTOSIS SLIGHT; BAND NEUTROPHILS % (MANUAL) 1 %; EOSINOPHILS % (MANUAL) 1 % (0-7); LYMPHOCYTES % (MANUAL) 13 % (19-48); METAMYELOCYTES % (MANUAL) 1 % (0-0); MONOCYTES % (MANUAL) 5 % (3.4-9.0); MYELOCYTES % (MANUAL) 1 % (0-0); NEUTROPHILS % (MANUAL) 77 % (40-74); NUCLEATED RED BLOOD CELLS 1; PLATELET ESTIMATE ADEQUATE; PLATELET MORPHOLOGY COMMENT NORMAL; RBC MORPHOLOGY COMMENT ABNORMAL
[2018-09-02] MEDS ORDERED: SODIUM CHLORIDE 0.9% 500ML 500 ML ONE (08:50)
[2018-09-02] MEDS: PANTOPRAZOLE 40 MG 10ML VIAL IV SCH (08:55)
[2018-09-02] MEDS: THIAMINE HCL INJ 100 MG/ML 2ML VIAL IV SCH (08:56)
[2018-09-02] MEDS ORDERED: ACETAMINOPHEN 1000 MG/100 ML 100 ML IV ONE (09:22)
[2018-09-02] MEDS: MAGNESIUM OXIDE 400 MG TAB PO SCH ×2 (09:56→16:39)
[2018-09-02] MEDS: ENOXAPARIN 30 MG/0.3 ML SYR SC SCH (09:56)
[2018-09-02] MEDS: RIFAXIMIN 550 MG TABLET PO SCH ×2 (09:56→17:17)
[2018-09-02] MEDS: FOLIC ACID 1 MG TAB PO SCH ×2 (09:56→16:39)
[2018-09-02] MEDS: LACTULOSE SYRUP 20 GM/30 ML UDC PO SCH ×2 (09:56→16:39)
[2018-09-02] MEDS: BALSAM PERU/CASTOR OIL 60 GM OINT...G. TP SCH (09:56)
[2018-09-02] MEDS: LANOLIN 4.5 OZ OINT TP SCH ×3 (09:56→22:08)
[2018-09-02] MEDS ORDERED: ACETAMINOPHEN 1000 MG/100 ML IV PRN (11:00)
--- NOTE | 2018-09-02 14:40 | Progress Note ---
DATE: September 02, 2018 INTERNAL MEDICINE PROGRESS NOTE SUBJECTIVE: A 53-year-old male who came originally because of elevated LFTs. He had a cardiac arrest, intubated, and running fever. He had renal insufficiency, he was started on the dialysis. PHYSICAL EXAMINATION VITAL SIGNS: Blood pressure 97/48, temperature 100.2, heart rate 73 per minute, respiratory rate 16 per minute, oxygen saturation 100%. HEART: Regular rhythm. Normal S1 and S2 sounds. LUNGS: Clear bilaterally. ABDOMEN: Soft. EXTREMITIES: Show 1+ bilateral pedal edema. LABORATORY DATA: On the BMP, sodium 146, potassium 3.7, chloride 105, CO2 of 29, BUN 23, creatinine 2.81, and glucose 115. On the CBC, white blood count is elevated at 15,700, hemoglobin 8.8, hematocrit 28.3, platelet count 155,000. PT 14.6, INR 1.05, PTT 36.3. AST is 180, ALT 70, total bilirubin 4.9, alkaline phosphatase 241. On the sputum culture, he has which is why he had sputum culture. Patient has a low-grade fever today. FINAL IMPRESSION 1. Acute respiratory failure. 2. Sepsis. 3. Acute renal failure secondary to acute tubular necrosis. 4. Alcoholic hepatitis. 5. Ctgdf-gb-gnqdtbz anemia. 6. Morbid obesity. 7. Status post cardiac arrest. PLAN OF TREATMENT: Continue ventilator support, wean as tolerated. Continue Levophed, to titrate for hypotension. Continue ergocalciferol 50,000 units once a week. Lactulose 20 grams twice a day. Magnesium oxide 400 mg twice a day. Artificial tears q.4 hours, D50 IV push as needed for hypoglycemia. Folic acid 1 mg daily. Balsam Sarah castor oil daily. Tylenol 650 mg q.4 hours as needed for pain or fever. Protonix 40 mg IV daily. Xifaxan 550 mg twice a day. Thiamine 100 mg IV daily. Tylenol 650 mg q.4 hours as needed for pain or fever. Benadryl 50 mg IV. Lovenox 30 mg daily, heparin 5000 units one time. Artificial tears q.4 hours. Monitor blood sugar q.6 hours. Librium 25 mg q.12. We are going to start the NG tube with feedings with Jevity at 40 mL an hour. Repeat CBC and CMP tomorrow. Consultation by infectious diseases because of fever. We are going to also order blood cultures. Job#: [id number] JACKELINE HARRIS
[2018-09-02] MEDS: CEFEPIME 1GM/NS 0.9% 50 ML 50 ML IV SCH (14:51)
--- NOTE | 2018-09-02 16:10 | Consultation ---
DATE OF CONSULTATION: September 02, 2018 NEUROLOGY CONSULT NOTE HISTORY OF PRESENT ILLNESS: Mr. Phan is intubated and sedated. History is obtained from review of the electronic medical record and from multiple family members who are at the bedside. Mr. Phan is a 53-year-old man with past medical history significant for hypertension, gout, obstructive sleep apnea (not compliant with CPAP), and alcohol dependence/abuse, admitted to [facility] on August 23, 2018. with metabolic encephalopathy and status post fall. The patient was brought to the emergency center at [facility] on August 13, 2018, status post fall and with confusion. Mr. Phan was found to have acute kidney injury with severe hyponatremia (initial sodium 119). The patient was noted to have elevated LFTs as well. Mr. Phan was admitted to the intensive care unit at [facility] for further evaluation and treatment of the above symptoms. While in the intensive care unit, the patient's serum sodium was gradually normalized. His liver function tests were monitored daily. Unfortunately, the patient's renal function did not improve, and Mr. Phan became oliguric/anuric. This necessitated placement of hemodialysis catheter and initiation of hemodialysis. On the evening of August 31, 2018, the patient's nurse entered Mr. Phan' room when the apnea alarm sounded. While the nurse was in the room, the patient went into cardiac arrest with pulseless electrical activity noted. Spontaneous circulation returned after 12 minutes of CPR. Mr. Phan was found to be difficult to intubate. Mr. Phan underwent hypothermia protocol with rewarming achieved on the evening of September 01, 2018. A neurology consultation is requested to evaluate for hypoxic/anoxic ischemic brain injury following cardiac arrest. Sedation with Versed was discontinued on the morning of September 01, 2018. Sedation with Diprivan was discontinued some time before 0700 on September 02, 2018 (the day of this evaluation). Sedation with fentanyl was discontinued at 0800 on September 02, 2018. The patient received 25 mg of Librium (scheduled) approximately 1 hour prior to this evaluation. At present, the patient is intubated and mechanically ventilated. He is on norepinephrine at a rate of 9 mcg per minute. The patient's liver enzymes remain elevated, but are trending downward. The patient has not produced urine in approximately 48 hours. His white blood cell count has nearly doubled in the past 48 to 72 hours. REVIEW OF SYSTEMS: Unable to obtain secondary to the patient being intubated. PAST MEDICAL HISTORY: Hypertension, gout, obstructive sleep apnea (not compliant with CPAP), alcohol dependence/abuse. PAST SURGICAL HISTORY: Placement of hemodialysis catheter. PAST HOSPITALIZATIONS: None. FAMILY MEDICAL HISTORY: There is no reported significant family medical history. SOCIAL HISTORY: Mr. Phan is . He is not employed. There is no reported current or prior tobacco or recreational drug use. The patient drinks one pine of vodka with 2 beers daily for many years. At present, his last alcoholic beverage was consumed approximately 3-1/2 weeks ago. HOME MEDICATIONS: Vitamin D3 50,000 units by mouth weekly, colchicine 0.6 mg by mouth twice daily, Benadryl 50 mg by mouth at bedtime daily, Lasix 20 mg by mouth daily, gabapentin 900 mg by mouth at bedtime daily, Protonix 40 mg by mouth daily, prednisone 5 mg by mouth daily. HOSPITAL MEDICATIONS: Reviewed. Please see the list of hospital medications available in the electronic medical record. ALLERGIES: NO KNOWN DRUG ALLERGIES. NO KNOWN FOOD ALLERGIES. NO KNOWN ALLERGIES TO LATEX. NO KNOWN ALLERGIES TO IODINE OR OTHER CONTRAST MATERIALS. PHYSICAL EXAMINATION VITAL SIGNS: Height 76 inches, weight 396 pounds, BMI 48.2 kg per meter squared. Blood pressure 108/46 mmHg, pulse 78 beats per minute, mechanically ventilated. GENERAL: The patient has his eyes closed, but opened his eyes to verbal stimuli. He appears mildly distressed secondary to being intubated. Morbidly obese. HEENT: Normocephalic, atraumatic. Pupils are equal, round and reactive to light. Moist mucous membranes. NECK: Supple. No appreciable thyromegaly. No appreciable carotid bruits. CARDIOVASCULAR: S1, S2, regular rate and rhythm. No murmurs, rubs, or gallops. RESPIRATORY: Intubated, mechanically ventilated. Coarse rhonchi are heard throughout anteriorly. EXTREMITIES: The skin is warm and dry. No clubbing, cyanosis. 1+ pretibial pitting edema is noted. The posterior tibial and dorsalis pedis pulses are trace and symmetric. SKIN: No rashes or lesions. NEUROLOGIC Memory/Attention: The patient is intubated and mechanically ventilated. His eyes are closed, but he does open his eyes to verbal stimuli. Cranial Nerves: Pupils are equal, round and reactive to light (4 mm briskly to 2 mm). Corneal, oculocephalic, and gag reflexes are intact. The face appears symmetric. Strength: Bulk is normal. The patient does not move his extremities to command. He withdrawals all 4 extremities to peripheral noxious stimulation. There is some spontaneous movements in both arms and both legs. These movements are equal and symmetric. Tone is decreased throughout. DTRs: Deep tendon reflexes are absent and symmetric at the triceps, biceps, brachioradialis, patellas, and Achilles. Plantar responses are flexor bilaterally. Sensation: Sensation is as per motor exam. Cerebellar: Unable to assess as the patient is unable to follow commands, restrained. Gait: Deferred. Speech: Unable to assess as the patient is intubated. Involuntary Movements: None. Pronator Drift: As per motor exam. LABORATORY DATA: The most recent comprehensive metabolic panel reveals a sodium of 146, creatinine of 2.81, an estimated GFR of 24, total bilirubin of 4.9, AST of 180, ALT of 70, alkaline phosphatase of 241, total protein of 5.9, albumin of 2.0, globulin of 3.9, and albumin to globulin ratio 0.5. Ammonia level 81. The most recent CBC with differential and platelets reveals a white blood cell count of 15.73 with a right shift with 73.3% neutrophils, 14.4% lymphocytes, 4.4% monocytes, 2.4% eosinophils, and 0.8% basophils. The hemoglobin and hematocrit are 8.8 and 28.3, respectively. The platelet count is 125. PT 14.6, INR 1.05, PTT 36.3. LATOYA screen negative. Antimitochondrial antibodies less than 20.0. Hepatitis A and B screens are negative. Hepatitis C antibody is 0.1 (negative). A sputum culture collected on August 31, 2018 grew Serratia marcescens. DIAGNOSTIC STUDIES: Electrocardiogram, September 02, 2018: Normal sinus rhythm at [address] of the brain without contrast, August 23, 2018: On my review, there is no evidence of recent large territorial ischemia, hemorrhage, mass, or mass effect. Cerebral volume appears appropriate for age. There are no findings suggestive of chronic small vessel ischemic disease. CT of the cervical spine, August 23, 2018: No acute abnormalities. Mild degenerative changes at C5-C6 and C6-C7 with mild canal stenosis. Abdomen ultrasound, August 25, 2018: 1. Enlarged liver with diffuse fatty infiltration. 2. The spleen is enlarged. 3. Biliary sludge without stones or wall thickening. Chest x-ray, September 02, 2018: Exam is limited diagnostic utility due to body habitus, low lung voids, motion artifact, and under penetration. Lines and tubes are not adequately assessed. Heart is enlarged. Probable edema and/or pneumonia. ASSESSMENT AND PLAN: Mr. Phan is a 53-year-old man with past medical history as detailed, currently hospitalized in ICU at [facility] with multiorgan failure. Patient has undergone a thorough neurological examination with findings detailed above. His laboratory data and other diagnostic studies have been reviewed and are documented above. Neurologically, Mr. Phan appears to be intact. His brainstem reflexes are intact. There is spontaneous movement of both arms and both legs as well as withdrawal to peripheral noxious stimulation indicating the peripheral nervous system is intact. However, the patient's prognosis remains poor secondary to multiorgan failure. RECOMMENDATIONS 1. Sedation should be weaned to optimize the neurological examination. The Versed drip will be discontinued. Librium will be decreased to 25 mg every 12 hours as needed for anxiety/agitation. This medicine should be discontinued over the next 3 to 4 days. The patient's neurological examination will be monitored clinically. 2. Hypotension: Continue pressor support with norepinephrine. Wean as tolerated. 3. Respiratory failure: Defer management to the pulmonary service. 4. Eveaq-td-qwlbfry liver injury: Monitor LFTs. Avoid hepatotoxic treatments. 5. Renal failure: The patient has produce little to no urine in the past 48 hours. At present, his electrolytes are within normal limits. Though the patient likely will not need hemodialysis today, hemodialysis will probably need to be reinitiated in the near future. Defer further evaluation and treatment to nephrology. 6. Infectious disease: The patient's WBC count has trended from 8.63 to 14.35 to 15.73 over the last 48 to 72 hours. A urinalysis with urine culture and blood cultures are ordered. The gram stain from August 31, 2018 grew Serratia marcescens. 7. Defer treatment of the remaining medical comorbidities to the primary and other services following the patient. Thank you for this consultation. I will continue to follow the patient while he remains in the hospital. TIME SPENT: 70 minutes. Job#: [id number] LINDAU MTDD
--- NOTE | 2018-09-02 18:09 | NUR ---
URINE CULTURE ORDERED BUT PATIENT DID NOT HAVE ENOUGH URINE OUTPUT
--- NOTE | 2018-09-02 18:25 | Progress Note ---
DATE: September 02, 2018 PULMONARY MEDICINE PROGRESS NOTE SUBJECTIVE: Mr. Phan was seen and examined at bedside. He continues to this time on one-half NS at 70 mL per hour. He is on Levophed at 9 micrograms per hour. Patient is being considered for more dialysis. He is on Versed and propofol. He is definitely following one-step command as minimum. He is having fever so far 101 degrees Fahrenheit. He is also moving all his extremities. REVIEW OF SYSTEMS: Not ability to get as he is not taking. OBJECTIVE VITALS: Afebrile. Vital signs noted per electronic record. GENERAL: No acute distress, alert and calm. HEENT: Normocephalic, atraumatic. NECK: Supple, large neck. no masses. LUNGS: With bilateral air entry, few rhonchi, mostly decreased auscultation due to decrease effort. CARDIOVASCULAR: S1, S2. No murmurs, rubs, or gallops. ABDOMEN: Soft, nontender. EXTREMITIES: No clubbing. No cyanosis. There is still 1+ edema to the legs. INTEGUMENT: No rash, no purpura. He still has a right IJ catheter and he has right femoral multi-used with venous accesses as well as the hyperthermia induction. LABS: Potassium 3.7, BUN 23, creatinine 2.8. White count 16, hematocrit 28, and platelets 125. IMPRESSION AND PLAN 1. Status post cardiac arrest and advanced neurologic return. 2. Acute respiratory failure, intubated. 3. Shock, distributive plus or minus other etiologies. 4. Acute renal failure, chronic renal failure. 5. Chronic liver disease. 6. Fevers, possible sepsis. 7. Obesity. 8. Primary respiratory arrest under evaluation, but difficult to say exactly what caused this. I discussed with the team. Patient will have a reasonable neurologic prognosis, so we will not recommend to withdrawal life support. We will have to talk about taking things forward and given the difficult airway he has and the difficulty understanding why he went into respiratory arrest, we will consider a tracheostomy as await guarantee survival in most cases. Patient will have machine dyer considered resumption of dialysis. Patient on pressor and will continue wean as tolerated. Tube feeds to start. Infectious disease expert consultation is being made due to fever and consider antibiotics. Patient may need lines to be come out. He is on DVT prophylaxis with enoxaparin at a lower dose modify for renal purposes. Continue close followup. He remains in critical condition. Job#: [id number] RENNY
[2018-09-02] MEDS ORDERED: CHLORDIAZEPOXIDE HCL 25 MG CAP PO PRN (21:00)
[2018-09-02] MEDS: DIPHENHYDRAMINE HCL 25 MG CAP PO SCH (22:08)
[2018-09-03] VITALS (27 sets, daily range): BP systolic 76–134; BP diastolic 38–69
[2018-09-03] MEDS: CEFEPIME 1GM/NS 0.9% 50 ML 50 ML IV SCH ×2 (02:41→14:27)
[2018-09-03 04:55] LABS: BASOPHILS # (AUTO) 0.1 (0.0-0.1); BASOPHILS % 0.7 % (0.0-1.0); EOSINOPHILS # (AUTO) 0.3 (0.0-0.4); EOSINOPHILS % 2.7 % (0.0-6.0); HEMATOCRIT 25.1 % (38.2-49.6); HEMOGLOBIN 7.7 g/dL (14.0-18.0); LYMPHOCYTES # (AUTO) 2.1 (1.0-3.2); LYMPHOCYTES % 17.3 % (18.0-39.1); MEAN CORPUSCULAR HGB CONC 30.7 g/dL (31-35); MEAN CORPUSCULAR VOLUME 107.7 fL (81-99); MONOCYTES # (AUTO) 0.5 (0.2-0.8); MONOCYTES % 4.1 % (4.4-11.3); NEUTROPHILS # (AUTO) 8.5 (2.1-6.9); NEUTROPHILS % 70.8 % (38.7-80.0); PLATELET COUNT 116 x10e3/uL (140-360); RED BLOOD COUNT 2.33 x10e6/uL (4.3-5.7); RED CELL DISTRIBUTION WIDTH 16.4 % (11.7-14.4)
[2018-09-03 05:20] LABS: ALBUMIN 1.8 g/dL (3.5-5.0); ALBUMIN/GLOBULIN RATIO 0.5 (0.8-2.0); ANION GAP 14.3 mmol/L (8-16); CALCIUM 8.3 mg/dL (8.4-10.2); POTASSIUM 3.3 mmol/L (3.5-5.1)
[2018-09-03 05:22] LABS: CREATININE, SERUM 4.27 mg/dL (0.72-1.25)
[2018-09-03] MEDS: INSULIN REGULAR, HUMAN 100 UNIT/1 ML 3ML VIAL SQ SCH ×5 (06:38→23:53)
[2018-09-03] MEDS: PROPOFOL IV EMULSION 10MG/ML 100 ML IV SCH (07:15)
--- NOTE | 2018-09-03 07:15 | NUR ---
Patient received with eyes closed and opened eyes when called by name. Respirations are even and unlabored. Intubated with ETT to Vent: PRVC-16; TV-500; FI02-40% and Peep-5 with O2 sats reading at 100%. V/S are stable.
[2018-09-03 07:30] LABS: BAND NEUTROPHILS % (MANUAL) 10 %; EOSINOPHILS % (MANUAL) 6 % (0-7); LYMPHOCYTES % (MANUAL) 30 % (19-48); METAMYELOCYTES % (MANUAL) 2 % (0-0); MONOCYTES % (MANUAL) 1 % (3.4-9.0); NEUTROPHILS % (MANUAL) 51 % (40-74); PLATELET ESTIMATE ADEQUATE; PLATELET MORPHOLOGY COMMENT NORMAL; RBC MORPHOLOGY COMMENT NORMAL
[2018-09-03] MEDS: SODIUM CHLORIDE 0.45% 1,000 ML IV SCH (08:00)
[2018-09-03] MEDS: FOLIC ACID 1 MG TAB PO SCH ×2 (09:00→17:00)
[2018-09-03] MEDS ORDERED: LACTULOSE SYRUP 20 GM/30 ML UDC PO PRN (09:00)
[2018-09-03] MEDS ORDERED: LACTULOSE SYRUP 20 GM/30 ML UDC PO SCH (09:00)
[2018-09-03] MEDS: LANOLIN 4.5 OZ OINT TP SCH ×3 (09:00→21:48)
[2018-09-03] MEDS: BALSAM PERU/CASTOR OIL 60 GM OINT...G. TP SCH (09:00)
[2018-09-03] MEDS: RIFAXIMIN 550 MG TABLET PO SCH ×2 (09:00→17:00)
[2018-09-03] MEDS: MAGNESIUM OXIDE 400 MG TAB PO SCH ×2 (09:00→17:00)
[2018-09-03] MEDS: PANTOPRAZOLE 40 MG 10ML VIAL IV SCH (09:00)
[2018-09-03] MEDS: THIAMINE HCL INJ 100 MG/ML 2ML VIAL IV SCH (09:00)
--- NOTE | 2018-09-03 10:15 | NUR ---
URINE CULTURE COLLECTED AND SENT TO LAB
[2018-09-03 12:06] LABS: COLOR,URINE AMBER (YELLOW)
[2018-09-03 12:07] LABS: BILIRUBIN,URINE 3+ (NEGATIVE); CLARITY,URINE HAZY (CLEAR); KETONES,URINE TRACE (NEGATIVE); LEUKOCYTE ESTERASE ,URINE 2+ (NEGATIVE); NITRITE,URINE POSITIVE (NEGATIVE); PROTEIN,URINE DIPSTICK 2+ (NEGATIVE); URINE UROBILINOGEN 1 mg/dL (0.2 - 1)
[2018-09-03 12:15] LABS: BACTERIA,URINE MANY /HPF; WBC,URINE (MAN) 21-50 /HPF (0-5)
[2018-09-03] MEDS ORDERED: POTASSIUM CHLORIDE 20 MEQ TAB CR PO NR (12:15)
[2018-09-03 12:16] LABS: MUCUS,URINE FEW (RARE)
[2018-09-03] MEDS: ACETAMINOPHEN 325 MG/10 ML UDC NG PRN (12:30)
--- NOTE | 2018-09-03 12:30 | NUR ---
TYLENOL 650MG PO GIVEN VIA NGT FOR TEMP OF 101.5 (CORE TEMP) AT 12:30.
--- NOTE | 2018-09-03 13:50 | NUR ---
DR. CARRASCO HERE TO SEE PATIENT
--- NOTE | 2018-09-03 14:00 | NUR ---
DR. WETZEL HERE TO SEE PATIENT AND SPEAK WITH AT BEDSIDE.
[2018-09-03] MEDS ORDERED: MAGNESIUM SULFATE 2GM/50ML 50 ML IV ONE (14:30)
--- NOTE | 2018-09-03 14:30 | NUR ---
DR. PIMENTEL HERE TO SEE PATIENT AND SPEAK WITH
--- NOTE | 2018-09-03 15:10 | Progress Note ---
DATE: September 03, 2018 INTERNAL MEDICINE PROGRESS NOTE SUBJECTIVE: The patient is still on the ventilator. He is running fever. He was started on broad-spectrum IV antibiotics. Patient went to start on dialysis. Dr. Lopez is probably going to recommend to do tracheostomy due to the fact that patient has not been able to wean off the ventilator. He has extreme obesity. PHYSICAL EXAM VITAL SIGNS: Blood pressure 115/57, temperature 102.0, heart rate 76 per minute, respiratory rate 18 per minute, oxygen saturation 98%. HEART: Shows regular rhythm. Normal S1 and S2 sounds. LUNGS: Show decreased breath sounds bilaterally. ABDOMEN: Soft. EXTREMITIES: Show no evidence of cyanosis, edema, or trauma. Blood culture and urine culture have been sent. Reports are pending. Dr. Farah is on the case for infectious disease, Dr. Lopez is on the case for pulmonary, Dr. Claudia Carrillo is on the case for neurology, Dr. Mack Lazar from nephrology, Dr. Montoya from cardiology, Dr. John Sweeney from gastroenterology. On the BMP; sodium 139, potassium 3.3, chloride 101, CO2 of 27, BUN 29, creatinine 4.27, glucose 122. On the CBC; white blood count 12,000, hemoglobin 7.7, hematocrit 25.1, platelet count 116,000. PT 14.6, INR 1.05, PTT 36.3. AST 128, ALT 52, total bilirubin 4.7, alkaline phosphatase 294. Magnesium was low at 1.6 today, so we are going to replace the magnesium with 2 g of magnesium one time since the patient had an episode of nonsustained V-tach. FINAL IMPRESSION 1. Acute respiratory failure. 2. Acute renal failure secondary to acute tubular necrosis. 3. Sepsis with septic shock. 4. Alcoholic hepatitis. 5. Criou-up-zvnizyw anemia. 6. Morbid obesity. 7. Sleep apnea. 8. Status post cardiac arrest. 9. Episode of nonsustained ventricular tachycardia. PLAN OF TREATMENT: We are going to replace the magnesium with 2 g of magnesium IV. Continue fentanyl citrate for sedation, norepinephrine drip for hypotension. Continue with cefepime 1 gram IV twice a day, ergocalciferol 50,000 units once a week through NG tube, thiamine 100 mg IV daily. Continue monitoring blood sugar q.6 hours. Continue propofol for sedation. Continue heparin one time. Continue artificial tears q.4 hours. Continue lactulose 20 gram daily. Continue Xifaxan 500 mg twice a day, magnesium oxide 800 mg twice a day, Protonix 40 mg IV daily, potassium chloride 20 mEq as needed for hypokalemia, Benadryl 50 mg at bedtime, folic acid 1 mg daily through NG tube, Balsam [place] castor oil 1 application daily, Tylenol 650 mg q.4 hours as needed for pain or fever, 25 mg twice a day through NG tube. The patient remains in critical condition. Case has been discussed with the family members at the bedside and , Dr. Lopez with the nurse. Time spent around 1 hour. Job#: [id number] MARYANA MTDD
[2018-09-03] MEDS: CEFTRIAXONE SOD 1 GM/NS 50 ML 50 ML IV SCH (15:15)
[2018-09-03] MEDS ORDERED: DIATRIZOATE MEGL/DIATRIZOA SOD 30 ML BTL PO ONE (15:16)
--- NOTE | 2018-09-03 16:00 | NUR ---
CT CONTRAST GIVEN VIA NG TUBE AND TOLERATED WELL AND RADIOLOGY NOTIFIED. AT BEDSIDE AND AWARE OF CT OF ABDOMEN TO BE DONE. MANAGER MSW CAME EARLIER TO EXPLAIN PROCEDURE TO .
[2018-09-03 16:23] LABS: BASOPHILS # (AUTO) 0.1 (0.0-0.1); BASOPHILS % 0.9 % (0.0-1.0); EOSINOPHILS # (AUTO) 0.3 (0.0-0.4); EOSINOPHILS % 2.7 % (0.0-6.0); LYMPHOCYTES # (AUTO) 2.4 (1.0-3.2); LYMPHOCYTES % 19.6 % (18.0-39.1); MEAN CORPUSCULAR HEMOGLOBIN 33.3 pg (28-32); MEAN CORPUSCULAR HGB CONC 30.8 g/dL (31-35); MEAN CORPUSCULAR VOLUME 108.3 fL (81-99); MONOCYTES # (AUTO) 0.6 (0.2-0.8); MONOCYTES % 5.1 % (4.4-11.3); NEUTROPHILS # (AUTO) 8.2 (2.1-6.9); NEUTROPHILS % 67.6 % (38.7-80.0); PLATELET COUNT 135 x10e3/uL (140-360); RED CELL DISTRIBUTION WIDTH 16.1 % (11.7-14.4)
--- NOTE | 2018-09-03 16:50 | NUR ---
TAKEN TO RADIOLOGY FOR CT OF ABDOMEN VIA PATIENT'S BED AND TAKEN BY Neena MENDEZRN, JUAN JOSÉ, RT AND REPOSSESSOR. PATIENT'S [id number] (ALLY) WILL WAIT FOR PATIENT'S RETURN IN ROOM.
[2018-09-03 17:39] LABS: BAND NEUTROPHILS % (MANUAL) 7 %; EOSINOPHILS % (MANUAL) 2 % (0-7); LYMPHOCYTES % (MANUAL) 14 % (19-48); METAMYELOCYTES % (MANUAL) 2 % (0-0); MONOCYTES % (MANUAL) 2 % (3.4-9.0); NEUTROPHILS % (MANUAL) 73 % (40-74)
[2018-09-03 17:42] LABS: PLATELET MORPHOLOGY COMMENT NORMAL
[2018-09-03 17:45] LABS: PLATELET ESTIMATE SLIGHTLY DECREASED; POLYCHROMASIA FEW; RBC MORPHOLOGY COMMENT ABNORMAL
--- NOTE | 2018-09-03 18:01 | Progress Note ---
DATE: September 03, 2018 PULMONARY MEDICINE PROGRESS NOTE SUBJECTIVE: Mr. Phan was seen and examined at bedside. He continues to have slow progress. He had 6 beats of wide complex tachycardia. He is intubated on ventilator. Moderate amount of secretions being suctioned intermittently. Temperature - maximum 102, fentanyl 30 micrograms per hour, Levophed 7 micrograms per minute ongoing. He is tolerating tube feeds, Nepro 40 per hour. Prolonged discussion with family, greater than 25 minutes, regarding goals of care, long-term as well as short-term. REVIEW OF SYSTEMS: Cannot get as he is on ventilator. OBJECTIVE VITAL SIGNS: Vital signs noted, semi-unstable per record. ABDOMEN: Still obese, but soft. EXTREMITIES: Stable 1+ edema. LABS: Potassium 2.3, BUN 29, creatinine 4.3. White count 12, hematocrit 22.5, platelets 116. IMPRESSION 1. Acute respiratory failure. 2. Shock, distributive mainly. 3. Eeuvg-mz-ksbeday kidney failure. 4. Encephalopathy, multifactorial and complex. 5. Severe obstructive sleep apnea at baseline. 6. Chronic liver disease. 7. Obesity. 8. Difficult airway. 9. Primary respiratory arrest, under evaluation, multifactorial. Predominant reasons include severe obstructive sleep apnea and difficult airway, possible medications, possible metabolic encephalopathy due to his acute condition, and possible aspiration. 10. Status post cardiac arrest with complex recovery of brain function. Continue current followup. There will be consideration for tracheostomy when patient approves to treat not just a difficult airway in the high-risk situation at extubation, but also for chronic obstructive sleep apnea and CPAP intolerance. Consideration for decannulation of tracheostomy can be made in a much more stable environment. Treat electrolytes and fix wide complex tachycardia. Continue to toilet the patient. Antibiotics to be considered. Lines include a right femoral line, which is still being kept in as a bridge because of the fevers and the need to possibly remove some of the upper lines from the upper chest; however, soon we will also want the groin line be come out. Follow up closely. Hemodialysis possibly tomorrow. Wean pressors. Greater than 30 minutes of direct care today, multiple evaluations, and care coordination. Job#: [id number] LPA
--- NOTE | 2018-09-03 18:13 | Diagnostic Imaging Report ---
EXAM: CT Abdomen and Pelvis WITHOUT contrast INDICATION: Hyponatremia ^rule out infection. oral contrast only COMPARISON: None. TECHNIQUE: Abdomen and pelvis were scanned utilizing a multidetector helical scanner from the lung base to the pubic symphysis without administration of IV contrast. Absence of intravenous contrast decreases sensitivity for detection of focal lesions and vascular pathology. Coronal and sagittal reformations were obtained. Routine protocol was performed. IV CONTRAST: None ORAL CONTRAST: Gastrografin. COMPLICATIONS: None RADIATION DOSE: Total DLP: 1842.56 mGy*cm Estimated effective dose: (DLP x 0.015 x size factor) mSv CTDIvol has been reviewed. It is below the limits set by the Radiation Protocol Committee (RPC). FINDINGS: LINES and TUBES: Right groin femoral line. Mcfadden catheter in place. Rectal tube in place. LOWER THORAX: Bilateral lower lobe atelectasis. Trace left pleural effusion. Calcified granuloma in the lingula. Mild scarring in the lung bases. HEPATOBILIARY: The liver is diffuse hypodense compared to the spleen, consistent with diffuse hepatic diffuse hepatic steatosis. No focal hepatic lesions. No biliary ductal dilation. GALLBLADDER: Gallbladder sludge. No wall thickening. Gallbladder is distended measuring 5.2 x 10.2 cm. SPLEEN: Moderate splenomegaly measuring 15.7 cm in AP dimension. PANCREAS: No focal masses or ductal dilatation. ADRENALS: No adrenal nodules KIDNEYS/URETERS: No hydronephrosis. No cystic or solid mass lesions. No stones. GI TRACT: No abnormal distention, wall thickening, or evidence of bowel obstruction. Appendix is normal. PELVIC ORGANS/BLADDER: Unremarkable. LYMPH NODES: Several prominent but benign-appearing para-aortic lymph nodes measuring up to 1.4 cm (series 2, image 55). VESSELS: Unremarkable. PERITONEUM / RETROPERITONEUM: No free air or fluid. BONES: Grade 1/2 anterolisthesis at L5-S1. SOFT TISSUES: Mild presacral edema. IMPRESSION: 1. Diffuse hepatic steatosis. 2. Gallbladder hydrops with sludge. 3. Moderate splenomegaly. 4. Several prominent but otherwise benign para-aortic lymph nodes. 5. Bilateral lower lobe atelectasis and mild scarring. Signed by: Dr. Kan Ruiz M.D. on 09/03/2018 6:09 PM
[2018-09-03 18:17] LABS: ANISOCYTOSIS MODERATE; POIKILOCYTOSIS SLIGHT
[2018-09-03 18:21] LABS: HYPOCHROMASIA MODERATE
[2018-09-03 18:23] LABS: STOMATOCYTES MODERATE
--- NOTE | 2018-09-03 18:23 | Consultation ---
DATE OF CONSULTATION: 2018 REASON FOR CONSULTATION: Fever. HISTORY OF PRESENT ILLNESS: Patient was seen and examined who is currently in the intensive care unit. His at the bedside provided information. I also reviewed his record. The patient comes in to the emergency room on August 23, 2018. According to the , she brought him here because he was not making any urine. According to the , the patient has been sick for the last 2 years. He would need help to getting up from the bed to the chair. He does have an underlying history of gout, obesity, and alcoholism. He drinks 2 bottles of vodka a day apparently up to last 3 weeks ago. The patient apparently has history of obesity, hypertension, gout. Apparently, he has been feeling sicker, weaker, recently a little bit confused according to the . No fever, no chills before he came here. When she brought him to the emergency room, he was in renal failure. Patient was admitted to the hospital. He was seen by renal. He had acute kidney injury on admission, hyponatremia, gout, hypertension, and alcoholism. He was seen by cardiology. He was seen by critical care. The patient has evidence of liver failure on admission. He is currently on a ventilator and was treated with DT. CAT scan of the head was done. Apparently, patient has had cardiac arrest on the night of August 31, 2018. The patient's nurse got called because the patient's apneic alarm went on. Patient went into a full cardiac arrest, had 12 minutes of CPR with return to subcutaneous circulation, was very difficult to intubation. He was also seen by neurology. The patient is currently on hemodialysis and now has running fever, so I was asked to see him. The patient's laboratory date reviewed. His sodium 146, creatinine 2.8, GFR 24, bilirubin 4.9, AST 180, ALT 70, alk phosphatase 241, protein 5.5, albumin is 2, globulin is 3.9. He had a WBC of 15. Abdominal ultrasound on August 25, 2018 showed enlarged liver, spleen was enlarged, biliary sludge. Chest x-ray examination was limited. He is currently on Librium. Patient was hypotensive, he is on vasopressors. His sputum culture showed Serratia marcescens, sensitivity pattern reviewed. MEDICATIONS: The patient is currently on magnesium, cefepime, rifaximin. REVIEW OF SYSTEMS: Could not be obtained. PHYSICAL EXAMINATION GENERAL: He is intubated, sedated. VITALS: Stable. His T-max 102.0 that started on September 02, 2018. He had no fevers since admission. HEENT: He does not appear icteric. NECK: Supple. CHEST: Few crackles at the bases. COR: S1 and S2. ABDOMEN: Soft, distended, but there is no tenderness that I can see. EXTREMITIES: Generalized edema. IMPRESSION 1. Fever, took place while in the hospital with history of alcoholism. He maybe going into withdrawal. He is on Librium. 2. Respiratory failure. 3. Status post cardiac arrest. 4. Shock. 5. Acute renal injury, probably underlying chronic kidney disease. 6. Morbidly obese patient. 7. Liver disease, cirrhosis and alcoholism. The fever could be due to infection, but there is also other possibilities that would suggest to discontinue cefepime. We will give him Rocephin 1 gram a day. Obtain CT of abdomen and pelvis with oral contrast if possible. He has diarrhea, but he is also on lactulose. Check CBC, Chem panel, procalcitonin, amylase, lipase. Will follow after the above. Job#: [id number] NORI HARRIS
--- NOTE | 2018-09-03 18:34 | NUR ---
ROCEPHIN [address] PIMENTEL'S ORDERS
--- NOTE | 2018-09-03 20:35 | NUR ---
[facility] CALLED REGARDING NEED FOR DIALYSIS ON THIS PATIENT AND I SPOKE TO MARTIN. I INFORMED HER THAT DR. GAFFNEY WILL GIVE ORDERS WHEN AM LABS ARE DONE AND WE WILL NOTIFY THEM.
[2018-09-03] MEDS: DIPHENHYDRAMINE HCL 25 MG CAP PO SCH (21:48)
[2018-09-04] VITALS (23 sets, daily range): BP systolic 96–121; BP diastolic 40–64
[2018-09-04] MEDS: NOREPINEPHRINE INJ 4MG/4ML 8 MG in DEXTROSE 5% 250ML 250 ML IV PRN ×2 (00:38→02:31)
[2018-09-04] MEDS: FENTANYL CITRATE INJ 2000 MCG in SODIUM CHLORIDE 0.9% 210 ML IV PRN (00:39)
[2018-09-04] MEDS: ACETAMINOPHEN 325 MG/10 ML UDC NG PRN ×2 (00:40→19:09)
[2018-09-04 05:08] LABS: BASOPHILS # (AUTO) 0.1 (0.0-0.1); BASOPHILS % 0.8 % (0.0-1.0); EOSINOPHILS # (AUTO) 0.3 (0.0-0.4); EOSINOPHILS % 2.8 % (0.0-6.0); HEMATOCRIT 24.1 % (38.2-49.6); HEMOGLOBIN 7.5 g/dL (14.0-18.0); LYMPHOCYTES # (AUTO) 1.8 (1.0-3.2); MEAN CORPUSCULAR HEMOGLOBIN 33.8 pg (28-32); MEAN CORPUSCULAR HGB CONC 31.1 g/dL (31-35); MEAN CORPUSCULAR VOLUME 108.6 fL (81-99); MONOCYTES # (AUTO) 0.6 (0.2-0.8); MONOCYTES % 5.4 % (4.4-11.3); NEUTROPHILS # (AUTO) 8.5 (2.1-6.9); NEUTROPHILS % 71.6 % (38.7-80.0); PLATELET COUNT 104 x10e3/uL (140-360); RED BLOOD COUNT 2.22 x10e6/uL (4.3-5.7); RED CELL DISTRIBUTION WIDTH 16.4 % (11.7-14.4)
[2018-09-04] MEDS: INSULIN REGULAR, HUMAN 100 UNIT/1 ML 3ML VIAL SQ SCH ×3 (05:35→19:18)
[2018-09-04 05:40] LABS: ALBUMIN 1.7 g/dL (3.5-5.0); ALBUMIN/GLOBULIN RATIO 0.4 (0.8-2.0); ANION GAP 17.7 mmol/L (8-16); CALCIUM 8.5 mg/dL (8.4-10.2); CREATININE, SERUM 5.22 mg/dL (0.72-1.25); MAGNESIUM 2.4 MG/DL (1.3-2.1); POTASSIUM 3.7 mmol/L (3.5-5.1)
--- NOTE | 2018-09-04 06:13 | Diagnostic Imaging Report ---
CHEST SINGLE (PORTABLE), 09/04/2018 5:00 AM Technique: CHEST SINGLE (PORTABLE) Comparison: 09/02/2018 Clinical history: Follow-up Findings: See Impression Impression: Severely limited by body habitus and portable technique. 1. Lines/Tubes: Grossly stable visualized ET tube over the mid trachea, right IJ central venous catheter in the region of the cavoatrial junction/high right atrium. NG tube appears subdiaphragmatic, poorly visualized distally. 2. Enlarged cardiomediastinal silhouette. 3. Lung opacities poorly assessed. Possible edema, bibasilar atelectasis and/or infection. Signed by: Dr Jenna Carney MD on 09/04/2018 6:08 AM
[2018-09-04] MEDS: PROPOFOL IV EMULSION 10MG/ML 100 ML IV SCH (07:15)
[2018-09-04] MEDS: PANTOPRAZOLE 40 MG 10ML VIAL IV SCH (09:00)
[2018-09-04] MEDS ORDERED: SODIUM CHLORIDE 0.9% 250ML 250 ML IV ONE (09:15)
[2018-09-04] MEDS: BALSAM PERU/CASTOR OIL 60 GM OINT...G. TP SCH (09:17)
[2018-09-04] MEDS: MAGNESIUM OXIDE 400 MG TAB PO SCH ×2 (09:17→16:04)
[2018-09-04] MEDS: LANOLIN 4.5 OZ OINT TP SCH ×3 (09:17→21:40)
[2018-09-04] MEDS: RIFAXIMIN 550 MG TABLET PO SCH ×2 (09:17→19:08)
[2018-09-04] MEDS: FOLIC ACID 1 MG TAB PO SCH ×2 (09:17→16:04)
[2018-09-04] MEDS: THIAMINE HCL INJ 100 MG/ML 2ML VIAL IV SCH (10:00)
[2018-09-04] MEDS ORDERED: SODIUM CHLORIDE 0.9% 1000ML 2,000 ML ONE (10:09)
--- NOTE | 2018-09-04 11:11 | NUR ---
Al, Infectious Disease, to bedside; Dr Lopez to bedside; DR Jelani wSeeney to bedside.
[2018-09-04] MEDS ORDERED: HEPARIN SOD (PORCINE) 1000 UNIT/ML SDV ONE (12:22)
[2018-09-04] MEDS: CEFTRIAXONE SOD 1 GM/NS 50 ML 50 ML IV SCH (15:19)
--- NOTE | 2018-09-04 16:05 | NUR ---
Nutrition Intervention Note RD Recommendation(s) for Physician: -Pt on pressor, rec to initiate standard PN @ 40mL/hr to meet nutrition goal until pt is hemodynamically stable. -Please continue to check Mg/Phos/CMP/Trig prior to TPN initiation and everyday x 3 days of TPN, to monitor TPN tolerance. -When Levophed is turned down to < 5mcg/min and pt is hemodynamically stable, rec continuous TF of Vital AF 1.2 @70mL/hr (2016kcal, 126g protein, and 1362mL water). Plan of Care: RD following, monitoring for tolerance and adequacy, TPN Nutrition reason for involvement: Follow up RD Assessment (09/04) Pt was discussed during AM rounds. Pt remained orally intubated and on vent. Possible trach placement. Pt was receiving HD this afternoon. Per RN, pt tolerated TF of Nepro @40mL/hr but had liquid stool. Rectal tube was present. Visited pt in the room. IVF @30mL/hr, Levophed @10mcg/min, and Fentanyl @ 25mcg/hr. Spoke with Dr. Sweeney on the phone regarding high risk of ischemia bowel or ileus with current TF order. RD rec to trickle feed with Vital HP @10mL/hr OR to initiate standard TPN @40mL/hr to meet nutrition goals. Dr. Sweeney was agreeable with TPN initiation. Order will be placed tomorrow before pharmacy cut-off time at 1500. Will continue to monitor and follow. (08/31) Pt with a change of condition. Pt Coded and was orally intubated and sedated now with a poor prognosis. Wt changes noted and RD is following. (08/24) Chart reviewed. Labs and meds reviewed. 53yo M, who is admitted for chest pain and LE cellulitis. Pt was discussed during AM rounds. Per RN, pt has no urine output with decreased kidney function. Negative cardiac markers. No hx of DM. Visited pt in the room. Pt reports eating very little in the last 2 years. UBW ~410lbs. No weight loss noted. Pt denies any nausea or vomiting at this time. LBM 08/23. Pt denies any chewing or swallowing issue. Pt quit drinking alcohol about 2 weeks ago. Prior to that, pt usually drinks 1 pint of vodka and 2-3 beer a day. Pt refused diet education. Will continue to monitor and follow. Principal Problems/Diagnoses: 1. Fever. 2. Respiratory failure. 3. Status post cardiac arrest. 4. Shock. 5. Acute renal injury, probably underlying chronic kidney disease. 6. Morbidly obese patient. 7. Liver disease, cirrhosis and alcoholism. PMH: no H&Pin chart GI: liquid stool, rectal tube present Skin: no pressure wound noted Labs: (09/04) BUN 37 H, Creatinine 5.22 H, glucose 139 H, Mg 2.4 H Meds: thiamine, mg oxide, folic acid, protonix, norepinephrine, fentanyl Ht: 76in Wt: 392lb BMI: 53.2kg/m2 IBW: 202lb Malnutrition Evaluation (08/24) The patient does not meet criteria for a specified degree of malnutrition at this time. Will re-evaluate at follow-up as appropriate. Nutrition Prescription (Diet Order): Nepro @40mL/hr Estimated Nutritional Needs: Calories: 2002 2548kcal(11-14kcal/kg/d) Weight used: actual BW Protein: 138 184g(1.5-2.0g/kg) Weight used: IBW Diet Adequacy: N/A Diet Education Needs Assessment: Diet education indicated, but patient declined. Nutrition Care Level: high Nutrition Diagnosis: Inadequate energy intake related to current medical status as evidenced by PN is required to meet nutrition goals. Goal: Patient will meet 75-100% of estimated needs by follow up Progress: N/A Interventions: Composition, Rate, IVF Monitoring/Evaluation: Total energy intake, Total protein intake, Formula/Solution, IVF, Weight change Signed: Jenna Roland MS, RD, LD
--- NOTE | 2018-09-04 19:05 | NUR ---
patient received with 170 cc in ross and 200cc in flexiseal. patient is sedated and febrile at this moment, previous nurse administered acetaminophen.
--- NOTE | 2018-09-04 19:22 | NUR ---
Per Fiordaliza Sweeney, tube feeding to 10 mL /hr and will possibly start TPN tomorrow. Per Dr Liao, please give the 2 PRBCs with HD tomorrow if available by that time.
[2018-09-04] MEDS: DIPHENHYDRAMINE HCL 25 MG CAP PO SCH (21:00)
--- NOTE | 2018-09-04 23:24 | Progress Note ---
DATE: September 04, 2018 PULMONARY MEDICINE PROGRESS NOTE SUBJECTIVE: Mr. Phan was seen and examined at bedside. He has continued ventilator dependency. He is intubated. He is on 7 of Levophed. Fentanyl 25 mcg per hour. Tube feeds at 40 mL per hour. Hemodialysis was 2 hours today without any net removal. Urine output remains oliguric. REVIEW OF SYSTEMS: Cannot get as he is intubated. OBJECTIVE: VITAL SIGNS: Afebrile, vital signs noted per electronic record. GENERAL: No acute distress, intubated, reportedly alert on moderate stimulation. HEENT: Normocephalic, atraumatic. NECK: Supple. Throat midline. LUNGS: Bilateral air entry, rare rhonchi. CARDIOVASCULAR: S1, S2. No murmurs, rubs, or gallops. ABDOMEN: Soft, nontender. EXTREMITIES: No clubbing, no cyanosis, there is 1+ edema to legs. INTEGUMENT: No rash, no purpura. LABS: 3.7 potassium, 37 BUN, 5.2 creatinine. 12 white count, 24 hematocrit, 104,000 platelets. IMPRESSION AND PLAN: 1. Status post cardiac arrest with good neurologic recovery. 2. Encephalopathy, complex functioning, but without finalized neurologic . 3. Acute respiratory failure, intubated. 4. Shock, distributive. 5. Acute kidney failure. 6. Some chronic liver disease, cirrhosis, and alcoholism. 7. Difficult airway. 8. Severe obstructive sleep apnea reported and continuous positive airway pressure intolerant. Continue weaning pressors as tolerated. Continue antibiotics. Follow up closely. Given this current trend of events, we are likely still going to recommend tracheostomy when the patient is more optimized. Continue hemodialysis per renal experts. Follow up urine output. Serial neuro exams to ensure patient continues to awaken. Continued tube feeds are highly recommended. Plan for packed red blood cell transfusions when made available. Job#: [id number]
[2018-09-05] VITALS (21 sets, daily range): BP systolic 101–126; BP diastolic 45–60
--- NOTE | 2018-09-05 05:00 | NUR ---
removed arterial line, arterial line kinked, inaccurate wave form, not reading accurately. applied pressure to site, no distress noted from procedure
[2018-09-05 05:29] LABS: ANION GAP 14.6 mmol/L (8-16); CALCIUM 8.7 mg/dL (8.4-10.2); CREATININE, SERUM 4.82 mg/dL (0.72-1.25); POTASSIUM 3.6 mmol/L (3.5-5.1)
[2018-09-05] MEDS: NOREPINEPHRINE INJ 4MG/4ML 8 MG in DEXTROSE 5% 250ML 250 ML IV PRN (06:23)
[2018-09-05] MEDS ORDERED: SODIUM CHLORIDE 0.9% 1000ML 1,000 ML ONE (06:26)
[2018-09-05] MEDS ORDERED: HEPARIN SOD (PORCINE) 1000 UNIT/ML SDV ONE (06:26)
[2018-09-05 06:43] LABS: BASOPHILS # (AUTO) 0.1 (0.0-0.1); BASOPHILS % 0.7 % (0.0-1.0); EOSINOPHILS # (AUTO) 0.4 (0.0-0.4); EOSINOPHILS % 3.6 % (0.0-6.0); HEMATOCRIT 25.2 % (38.2-49.6); HEMOGLOBIN 7.9 g/dL (14.0-18.0); LYMPHOCYTES # (AUTO) 1.6 (1.0-3.2); LYMPHOCYTES % 15.8 % (18.0-39.1); MEAN CORPUSCULAR HEMOGLOBIN 33.5 pg (28-32); MEAN CORPUSCULAR HGB CONC 31.3 g/dL (31-35); MEAN CORPUSCULAR VOLUME 106.8 fL (81-99); MONOCYTES # (AUTO) 0.8 (0.2-0.8); NEUTROPHILS # (AUTO) 6.7 (2.1-6.9); NEUTROPHILS % 66.8 % (38.7-80.0); PLATELET COUNT 104 x10e3/uL (140-360); RED BLOOD COUNT 2.36 x10e6/uL (4.3-5.7); RED CELL DISTRIBUTION WIDTH 16.5 % (11.7-14.4)
[2018-09-05] MEDS: INSULIN REGULAR, HUMAN 100 UNIT/1 ML 3ML VIAL SQ SCH ×4 (06:59→17:11)
--- NOTE | 2018-09-05 07:00 | NUR ---
Patient updated on patient condition. rabbit breeder to bedside.
--- NOTE | 2018-09-05 07:03 | NUR ---
walking rounds with karo dupont
[2018-09-05] MEDS: PROPOFOL IV EMULSION 10MG/ML 100 ML IV SCH (07:15)
--- NOTE | 2018-09-05 08:00 | NUR ---
Dr Liao made aware we are still awaiting availability of 2 PRBCs. Called Marivel to check on PRBCs and she will alert when arrive.
[2018-09-05] MEDS ORDERED: ALBUMIN 25% 12.5GM 0.25 GM/ML BTL IV PRN (08:45)
[2018-09-05] MEDS ORDERED: SODIUM CHLORIDE 0.9% 250ML 500 ML IV PRN (08:45)
[2018-09-05] MEDS ORDERED: MANNITOL 25% 12.5GM/50 ML VIAL IV PRN (08:45)
[2018-09-05] MEDS ORDERED: HEPARIN SOD (PORCINE) 1000 UNIT/ML SDV IV PRN (08:45)
[2018-09-05] MEDS ORDERED: SODIUM CHLORIDE 0.9% 1000ML 2,000 ML IV PRN (08:45)
[2018-09-05 09:07] LABS: BAND NEUTROPHILS % (MANUAL) 3 %; EOSINOPHILS % (MANUAL) 3 % (0-7); LYMPHOCYTES % (MANUAL) 14 % (19-48); METAMYELOCYTES % (MANUAL) 3 % (0-0); MONOCYTES % (MANUAL) 9 % (3.4-9.0); MYELOCYTES % (MANUAL) 2 % (0-0); NEUTROPHILS % (MANUAL) 66 % (40-74); RBC MORPHOLOGY COMMENT NORMAL
[2018-09-05 09:08] LABS: ANISOCYTOSIS SLIGHT; HYPOCHROMASIA MODERATE; PLATELET ESTIMATE SLIGHTLY DECREASED; PLATELET MORPHOLOGY COMMENT NORMAL; STOMATOCYTES SLIGHT
[2018-09-05] MEDS: BALSAM PERU/CASTOR OIL 60 GM OINT...G. TP SCH (09:15)
[2018-09-05] MEDS: LANOLIN 4.5 OZ OINT TP SCH ×3 (09:15→21:20)
[2018-09-05] MEDS: ERGOCALCIFEROL 50,000 UNIT CAP PO SCH (09:15)
[2018-09-05] MEDS: FOLIC ACID 1 MG TAB PO SCH ×2 (09:15→16:38)
[2018-09-05] MEDS: RIFAXIMIN 550 MG TABLET PO SCH (09:15)
[2018-09-05] MEDS: PANTOPRAZOLE 40 MG 10ML VIAL IV SCH (09:15)
[2018-09-05] MEDS: THIAMINE HCL INJ 100 MG/ML 2ML VIAL IV SCH (09:15)
[2018-09-05] MEDS: MAGNESIUM OXIDE 400 MG TAB PO SCH ×2 (09:15→16:38)
--- NOTE | 2018-09-05 10:55 | NUR ---
Pt sleeping soundly and no family present. Will continue to follow as able. RAMÓN CAMACHO [employer] Spiritual Care Department O: [phone]
[2018-09-05] MEDS: ACETAMINOPHEN 325 MG/10 ML UDC NG PRN (13:36)
[2018-09-05] MEDS: CEFTRIAXONE SOD 1 GM/NS 50 ML 50 ML IV SCH (15:10)
--- NOTE | 2018-09-05 15:43 | NUR ---
Alerted Dr Jelani Sweeney that patient remains febrile after tylenol; advises to draw an H&H and will hold on 2nd unit PRBCs if 8 or greater.
[2018-09-05 16:50] LABS: HEMATOCRIT 26.6 % (38.2-49.6); HEMOGLOBIN 8.6 g/dL (14.0-18.0)
--- NOTE | 2018-09-05 19:00 | NUR ---
RECEIVED REOPORT FROM Michael WOO IN REGARDS TO PT CARE, PT SEDATED, ON VENTILATOR ON VEVOPHED DRIP AND FENTANYL DRIP, PT ABLE TO KNODDS HEAD YES OR NO IN REGARDS TO SIMPLE QUESTIONS IE: ARE YOU IN PAIN. PT HAS ROSARIO CATH AND FLEXI SEAL WHICH IS LEAKING FROM INSERTION SITE. CHECKED BALLOON. WHICHH IS IN PLACE, PERIANAL CARE PROVIDED AND CLEAN LININ APPLIED. PT RESTING MORE COMFORTABLE.
--- NOTE | 2018-09-05 19:00 | NUR ---
RECEIVED REPORT FROM OFF GOING NURSE SURY WOO, PT SEDATED, INTUBATED,, HAS ROSARIO CATHETER, , RECTAL TUBE DRAINING MUSTARD COLORED TYPE OF FECES, WHICH LEAKED AROUND THE INSERTION SITE OF THE TUBE. INFORMED OFF GOING NURSE TO HELP ASSIST IN CLEANING UP THIS PT BEFORE SHE LEAVE. PT WAS CLEANED, PERIANAL CARE PROVIDED, PT TOLERATED WELL.
[2018-09-05] MEDS ORDERED: CENTRAL TPN FORMULA 1 BAG IV SCH (20:00)
--- NOTE | 2018-09-05 20:21 | NUR ---
Bedside report given to CHILO Sheriff.
--- NOTE | 2018-09-05 21:00 | NUR ---
CALLED TO CHECK ON PT, PROVIDED HER WITH INFORMATION, AND INFORMED HER SHE COULD CALL BACK AT ANYTIME TO CHECK ON PT AND IF ANY CHANGES STAFF WOULD CALL HER. STATED OK.
--- NOTE | 2018-09-05 21:00 | NUR ---
CALLED TO CHECK ON PT'S STATUS, COMFORTABLE WITH INFORMATION GIVEN. STATES SHE HAS TO WK TOMORROW, AND WILL CALL BACK LATER TO CHECK ON PT.
[2018-09-05] MEDS: DIPHENHYDRAMINE HCL 25 MG CAP PO SCH (21:24)
--- NOTE | 2018-09-05 23:26 | Progress Note ---
DATE: September 05, 2018 PULMONARY MEDICINE PROGRESS NOTE SUBJECTIVE: Mr. Phan was seen and examined at bedside. He is on Levophed 9 mcg per minute. Fentanyl 25 mcg per hour. Nepro 1.8 at 10 mL per hour now. Patient with fentanyl 25 mcg per hour which still allows the patient to intermittently arouse to simple communications. He is on ventilator 16/500/40%/5. REVIEW OF SYSTEMS: get as he is intubated. OBJECTIVE VITAL SIGNS: Afebrile, vital signs semi unstable as per record. HEENT: Normocephalic, atraumatic. NECK: Supple. Throat midline. LUNGS: Bilateral air entry, few rhonchi. CARDIOVASCULAR: S1, S2. No murmurs, rubs, or gallops. ABDOMEN: Soft, nontender. EXTREMITIES: No clubbing, no cyanosis, there is 1+ edema. INTEGUMENT: No rash, no purpura. LABS: Potassium 3.6, BUN 37, creatinine 4.8. White count 7, hematocrit 25. IMPRESSIONS 1. Acute respiratory failure, intubated. 2. Difficult airway. 3. Obstructive sleep apnea, inability to tolerate positive airway pressure therapy. 4. Acute kidney injury on possible chronic kidney disease. 5. Underlying chronic liver disease with mild acute issues. 6. alcohol dependency, severe. 7. Shock, septic, plus or minus other. PLAN: Continue close followup. Try to wean pressors. Dialysis as needed for renal replacement. Continue the antibiotics to cover possibility of whether it is pneumonia or or other. I continue to recommend nutritional therapy for the patient and adjustment between enteric and possible parenteral nutrition. I will continue to follow up closely. JENNIFER WETZEL MD Job#: [id number]
[2018-09-06] VITALS (20 sets, daily range): BP systolic 102–129; BP diastolic 44–68
--- NOTE | 2018-09-06 | NUR ---
PT RESTING QUIETLY, BREATHING EVEN AND UNLABORED ON VENTILATOR, CONTINUES WITH SAME DRIPS.
[2018-09-06] MEDS: INSULIN REGULAR, HUMAN 100 UNIT/1 ML 3ML VIAL SQ SCH ×4 (01:50→18:00)
[2018-09-06] MEDS ORDERED: NOREPINEPHRINE 8 MG/D5W 250 ML 250 ML ONE (03:10)
[2018-09-06 05:12] LABS: BASOPHILS # (AUTO) 0.1 (0.0-0.1); BASOPHILS % 0.9 % (0.0-1.0); EOSINOPHILS # (AUTO) 0.4 (0.0-0.4); EOSINOPHILS % 4.6 % (0.0-6.0); HEMATOCRIT 26.3 % (38.2-49.6); HEMOGLOBIN 8.3 g/dL (14.0-18.0); LYMPHOCYTES # (AUTO) 1.4 (1.0-3.2); MEAN CORPUSCULAR HEMOGLOBIN 33.3 pg (28-32); MEAN CORPUSCULAR HGB CONC 31.6 g/dL (31-35); MEAN CORPUSCULAR VOLUME 105.6 fL (81-99); MONOCYTES # (AUTO) 0.8 (0.2-0.8); MONOCYTES % 9.3 % (4.4-11.3); NEUTROPHILS # (AUTO) 5.6 (2.1-6.9); NEUTROPHILS % 63.7 % (38.7-80.0); PLATELET COUNT 116 x10e3/uL (140-360); RED BLOOD COUNT 2.49 x10e6/uL (4.3-5.7); RED CELL DISTRIBUTION WIDTH 16.7 % (11.7-14.4)
[2018-09-06 05:32] LABS: ALBUMIN 1.6 g/dL (3.5-5.0); ALBUMIN/GLOBULIN RATIO 0.4 (0.8-2.0); ANION GAP 13.5 mmol/L (8-16); CALCIUM 8.7 mg/dL (8.4-10.2); CREATININE, SERUM 3.44 mg/dL (0.72-1.25); POTASSIUM 3.5 mmol/L (3.5-5.1)
--- NOTE | 2018-09-06 06:14 | Diagnostic Imaging Report ---
CHEST SINGLE (PORTABLE), 09/06/2018 5:00 AM Technique: CHEST SINGLE (PORTABLE) Comparison: 09/04/2018 Clinical history: CHF. Findings: See Impression Impression: Severely limited by body habitus and portable technique. 1. Lines/Tubes: ET tube tip 5.6 cm above the abel. Right IJ central venous catheter tip not well visualized. NG tube appears subdiaphragmatic, poorly visualized distally. 2. Enlarged cardiomediastinal silhouette. 3. Lung opacities poorly assessed. Possible edema, bibasilar atelectasis and/or infection, grossly stable. Signed by: DR. Chris Joe MD on 09/06/2018 6:11 AM
--- NOTE | 2018-09-06 07:00 | NUR ---
Pt sleeping soundly and no family present. Softball Winder left a card describing availability of actuarial consultant and instructions on how to contact a actuarial consultant. RAMÓN CAMACHO [employer] Spiritual Care Department O: [phone] Pager: [phone] ([phone] number calling from)
--- NOTE | 2018-09-06 07:10 | NUR ---
PATIENT RECEIVED WITH ETT TO VENT: PRVC-16; [id number]%; Peep-5 and O2 sats are 100%. Respirations are even and unlabored. Patient is sedated and opens eyes when called by name. On Fentanyl drip at 30mcg; Levophed drip decreased to 8mcg/hr and tolerating well with B/P of 133/67.
[2018-09-06] MEDS: PROPOFOL IV EMULSION 10MG/ML 100 ML IV SCH (07:15)
--- NOTE | 2018-09-06 07:16 | NUR ---
spoke with this morning regarding pt receiving a trach, states she will talk to pt's catalina and let us know this afternoon for sure. Reported this oncoming nurse and charge nurse. Left pt in stable condition
[2018-09-06 07:52] LABS: BAND NEUTROPHILS % (MANUAL) 8 %; EOSINOPHILS % (MANUAL) 3 % (0-7); LYMPHOCYTES % (MANUAL) 5 % (19-48); METAMYELOCYTES % (MANUAL) 2 % (0-0); MONOCYTES % (MANUAL) 8 % (3.4-9.0); NEUTROPHILS % (MANUAL) 74 % (40-74); PLATELET ESTIMATE SLIGHTLY DECREASED; PLATELET MORPHOLOGY COMMENT NORMAL
[2018-09-06 07:53] LABS: ANISOCYTOSIS SLIGHT; HYPOCHROMASIA SLIGHT; RBC MORPHOLOGY COMMENT NORMAL
[2018-09-06] MEDS: ACETAMINOPHEN 325 MG/10 ML UDC NG PRN (08:37)
--- NOTE | 2018-09-06 08:45 | NUR ---
Dialysis nurse here to perform dialysis on patient.
[2018-09-06] MEDS: PANTOPRAZOLE 40 MG 10ML VIAL IV SCH (08:50)
[2018-09-06] MEDS: THIAMINE HCL INJ 100 MG/ML 2ML VIAL IV SCH (08:51)
[2018-09-06] MEDS: FOLIC ACID 1 MG TAB PO SCH ×2 (08:51→17:00)
[2018-09-06] MEDS: BALSAM PERU/CASTOR OIL 60 GM OINT...G. TP SCH (08:51)
[2018-09-06] MEDS: LANOLIN 4.5 OZ OINT TP SCH ×3 (08:51→20:28)
--- NOTE | 2018-09-06 09:00 | NUR ---
Dr. Lazar here to see patient
[2018-09-06] MEDS: FLUCONAZOLE 200 MG/100 ML 100 ML IV SCH (13:30)
--- NOTE | 2018-09-06 14:28 | NUR ---
DC PLAN: DISCUSSED PT IN ROUNDS. PT REMAINS ON VENT, ROSARIO AND TUBE FEEDS. BEDSIDE NURSE STATES THEY PLAN TO TRANSITION FROM TF TO TPN. PLAN TRACH; AWAITING OK FROM FAMILY. CONT HD; BUN 30, CREAT 23.44, GFR 19. 2U PRBC'S 09/05/18 TRANSFUSED. H/H 8.3/26.3. OLIVA CAZARES CONTINUES TO FOLLOW.
--- NOTE | 2018-09-06 14:43 | NUR ---
WOUND CARE - PUP SCREEN - FOLLOW UP - Pt in bed , Intubated, Follows with yes and no nodding. - Bilateral Wrist Restraints - Alternating Pressure Air Mattress in use. - Julio Cesar Score 7 SKIN CHECK PARTIALLY PERFORMED: - Sacral Area -Unable To Assess - Patient non-cooperative. pushing back. Nods head to "No" when asked if I can take a look. Patient very tall and heavy. Requires 3+ person to turn. - Bilateral heels- pink & dry, no pressure ulcers identified. - Left Forearm - Skin Tear - 2x2 cm - weeping serous fluid -large amounts. - +3 Pitting Edema to BUE. RECOMMENDATION: Continue Current Treatment Plan: 1. Perirectal& Bilateral Gluteal Areas- - Wash area with mild soap and water then pat dry thoroughly. - Apply Lantiseptic Cream TID and PRN Soiling. 2. Left Foot 2nd toe- Venelex and Leave Open To Air Daily. 3. Continue Alternating Pressure Air Mattress 4. Turn and Reposition q2h. 5. Offload Heels with pillows while in bed. 6. Left Forearm Skin Tear - Cleanse wound with NS and 4x4 gauze. Pat Dry Thoroughly. - Apply Xeroform Single Layer and Cover with 4x4 Gauze and Secure with Kerlix Wrap Daily & PRN Strikethrough. Addendum: 09/06/18 at 1454 by Enrike Ca RN Amended: Links added.
--- NOTE | 2018-09-06 14:47 | NUR ---
Shyann () here to see patient. Shyann states that she is in agreement for a tracheostomy if necessary.
[2018-09-06] MEDS: CEFTRIAXONE SOD 1 GM/NS 50 ML 50 ML IV SCH (15:15)
--- NOTE | 2018-09-06 19:00 | NUR ---
RECEIVED REPORT FROM OFF GOING NURSE SMILEY WOO, PT SEDATED ON FENTANYL AND B/P MAINTAINED ON LEVOPHED, HANG WRIST RESTRAINT ON FOR SAFETY, PT GETS AGITATED AND AT, ATTEMPTS TO PULL AT LINES RT JUGULAR TRIALYSIS CATHETER, OR NGT TO .PT ON [facility]Y BED THAT TURNS PT EVERY TWO HR'S.
--- NOTE | 2018-09-06 19:30 | Progress Note ---
DATE: September 06, 2018 PULMONARY MEDICINE PROGRESS NOTE SUBJECTIVE: Mr. Phan was seen and examined at bedside. He continues to have steady progress. TPN at 40 per hour. Tube feeds were shut off. Fentanyl at 30 mcg per hour. Levophed at 10 mcg per minute. He received dialysis with 2.1 liters out. He is intubated orally. Minute ventilation is 12 liters per minute pressures 27. Respiratory rate is 18. REVIEW OF SYSTEMS: Cannot get as he is intubated. OBJECTIVE: VITAL SIGNS: Afebrile, vital signs noted per electronic record. GENERAL: No acute distress, alert and calm. HEENT: Normocephalic, atraumatic. NECK: Supple. Throat midline. LUNGS: Bilateral air entry, clear. CARDIOVASCULAR: S1, S2. No murmurs, rubs, or gallops. ABDOMEN: Soft, nontender. EXTREMITIES: No clubbing, no cyanosis, there is 1+ edema. INTEGUMENT: No rash, no purpura. LABS: 3.5 potassium, 30 BUN, 3.4 creatinine. 9 white count, 26 hematocrit, 116,000 platelets. IMPRESSION AND PLAN: 1. Acute respiratory failure, intubated. 2. Shock, distributive mostly. 3. Severe sleep apnea, intolerance to positive airway pressure outpatient therapy. 4. Status post cardiac arrest with advanced neurologic recovery. 5. Primary respiratory arrest, multifactorial including sleep apnea, delirium tremens, possible medicines, possible aspiration. 6. Stdcz-qn-hmnvhyn kidney failure. 7. Chronic liver disease, alcoholic and possibly other. Continue current treatment at this time. Nutrition by TPN at this time. Will follow along closely. Will consider changing to enteral nutrition if his condition improves. Continue intubated state. No ventilator weaning with significant dose of pressors. Patient better for LTAC especially given his high body mass index and difficulty handling. Patient will need tracheostomy when he is better for the respiratory failure issue as well as the severe refractory sleep apnea. Continue weaning pressors off. Continue renal replacement therapy as tolerated. Will follow along closely. Job#: [id number]
[2018-09-06] MEDS ORDERED: CENTRAL TPN FORMULA 1 BAG IV SCH (20:00)
[2018-09-06] MEDS: CENTRAL TPN FORMULA 1 BAG IV SCH (20:27)
[2018-09-06] MEDS: DIPHENHYDRAMINE HCL 25 MG CAP PO SCH (20:27)
--- NOTE | 2018-09-06 21:00 | NUR ---
CALLED TO ENQUIRE ABOUT PT , INFORMED HER PT IS RESTING, REMAINS ON SEDATION, CONTINUES TO BE FEBRILE, STATES HAS GIVEN THE OK FOR DR. WETZEL TO GO AHEAD WITH THE TRACH INSERTION, HOWEVER IT WAS STATED BY OFF GOING NURSE DR WETZEL NOT READY TO PERSUE TRACH INSERTION,.
[2018-09-07] VITALS (35 sets, daily range): BP systolic 93–130; BP diastolic 40–80
[2018-09-07] MEDS: INSULIN REGULAR, HUMAN 100 UNIT/1 ML 3ML VIAL SQ SCH ×4 (00:26→18:04)
[2018-09-07 04:59] LABS: BASOPHILS # (AUTO) 0.1 (0.0-0.1); BASOPHILS % 0.8 % (0.0-1.0); EOSINOPHILS # (AUTO) 0.4 (0.0-0.4); EOSINOPHILS % 4.3 % (0.0-6.0); HEMATOCRIT 25.8 % (38.2-49.6); LYMPHOCYTES # (AUTO) 1.7 (1.0-3.2); LYMPHOCYTES % 17.5 % (18.0-39.1); MEAN CORPUSCULAR HEMOGLOBIN 33.5 pg (28-32); MEAN CORPUSCULAR VOLUME 107.9 fL (81-99); MONOCYTES # (AUTO) 0.9 (0.2-0.8); NEUTROPHILS # (AUTO) 5.9 (2.1-6.9); NEUTROPHILS % 62.2 % (38.7-80.0); PLATELET COUNT 142 x10e3/uL (140-360); RED BLOOD COUNT 2.39 x10e6/uL (4.3-5.7); RED CELL DISTRIBUTION WIDTH 16.5 % (11.7-14.4)
[2018-09-07 05:32] LABS: ANION GAP 13.7 mmol/L (8-16); CALCIUM 8.3 mg/dL (8.4-10.2); CREATININE, SERUM 3.33 mg/dL (0.72-1.25); MAGNESIUM 2.1 MG/DL (1.3-2.1); PHOSPHORUS 2.3 MG/DL (2.3-4.7); POTASSIUM 3.7 mmol/L (3.5-5.1)
--- NOTE | 2018-09-07 07:11 | NUR ---
REPORTED OFF TO SMILEY ONCOMING NURSE , PT'S NGT CLOGGED, ATTEMPTED TO UNCLOG TUBE WITH NO GOOD RESULTS. DR. Luis ESCOBAR AWARE TUBE CLOGGED WHEN HE ORDERED IMMODIUM.
[2018-09-07] MEDS: PROPOFOL IV EMULSION 10MG/ML 100 ML IV SCH (07:15)
[2018-09-07] MEDS: THIAMINE HCL INJ 100 MG/ML 2ML VIAL IV SCH (09:00)
[2018-09-07] MEDS: DIPHENOXYLATE/ATROPINE TAB PO SCH ×2 (09:00→18:01)
[2018-09-07] MEDS: PANTOPRAZOLE 40 MG 10ML VIAL IV SCH (09:00)
[2018-09-07] MEDS: FOLIC ACID 1 MG TAB PO SCH ×2 (09:00→18:01)
--- NOTE | 2018-09-07 09:15 | NUR ---
Pt sleeping soundly and no family present. Will continue to follow as able. RAMÓN CAMACHO [employer] Admin Spiritual Care Department O: [phone] Pager: [phone] ([phone] number calling from)
[2018-09-07] MEDS: BALSAM PERU/CASTOR OIL 60 GM OINT...G. TP SCH (09:45)
[2018-09-07] MEDS: LANOLIN 4.5 OZ OINT TP SCH ×3 (09:45→21:30)
--- NOTE | 2018-09-07 11:00 | NUR ---
Dr. Linda Sweeney here to see patient
--- NOTE | 2018-09-07 11:45 | NUR ---
Dialysis nurse here to perform dialysis on patient
--- NOTE | 2018-09-07 12:10 | NUR ---
Dr. Lopez here to see patient
[2018-09-07] MEDS: FLUCONAZOLE 200 MG/100 ML 100 ML IV SCH (12:24)
--- NOTE | 2018-09-07 13:40 | Progress Note ---
DATE: September 07, 2018 PULMONARY MEDICINE PROGRESS NOTE SUBJECTIVE: Mr. Phan was seen and examined at bedside. He continues to have Levophed and currently at 10 mcg per minute. He is on TPN at 80 tube feeds per hour. Patient remains intubated on the ventilator. He has increased airway secretions over the last day. Mcfadden in with 125 mL in and 75 mL over 12-hour intervals. Rest of tubes in place. REVIEW OF SYSTEMS: No headaches. No bleeding seen at this time, except to communicate through the ventilator are being done. OBJECTIVE VITALS: Afebrile. Vital signs noted per electronic record. GENERAL: In no acute distress. Alert and calm. HEENT: Normocephalic and atraumatic. NECK: Supple. Throat midline. LUNGS: Bilateral air entry. Few rhonchi. CARDIOVASCULAR: S1 and S2. No murmurs, rubs or gallops. ABDOMEN: Soft and nontender. EXTREMITIES: No clubbing. No cyanosis. There is 1+ edema. INTEGUMENT: No rash or purpura. LABS: Potassium 2.7, BUN 28, creatinine 3.3. White count 9.5, hematocrit 26, and platelets 142,000. IMPRESSION AND PLAN 1. Acute respiratory failure, intubated. 2. Shock, distributively mostly. 3. Dhdio-pu-zymxgdm kidney failure. 4. Chronic liver disease, reportedly with severe alcohol dependency. 5. Pneumonia. 6. Possible urinary tract infection. 7. Status post cardiac arrest with excellent recovery and neurologic function. Continue intubated state. Ventilator support especially while the pressors are ongoing. Continue TPN for now. Patient likely will still need tracheostomy in most likelihood. We should try to get it while the patient is here in this hospital. Will follow him along closely. Job#: [id number] [place]
--- NOTE | 2018-09-07 13:49 | NUR ---
Nutrition Intervention Note RD Recommendation(s) for Physician: - Pt on pressor, current standard TPN @60mL/hr providing 1022kcal, 72g protein, and 1440mL fluids. meeting 50% of est protein and calorie needs. - As medically appropriate, increase TPN to goal rate of 100mL/hr to meet 100% of est protein and calorie needs. - Please continue to check Mg/Phos/CMP/Trig to monitor PN tolerance. - When Levophed is turned down to < 5mcg/min and pt is hemodynamically stable, rec continuous TF of Vital AF 1.2 @70mL/hr (2016kcal, 126g protein, and 1362mL water). Plan of Care: RD following, monitoring for tolerance and adequacy, TPN Nutrition reason for involvement: Follow up RD Assessment (09/07) Pt was discussed during AM rounds. Pt remained orally intubated and on vent. Pt received daily HD. Last HD on 09/06 removed 2.1 L fluids. Levophed at 8 mcg per minute. TPN at 60mL/hr. Per RN, TPN will be increased up to 80mL/hr tonight. Reviewed labs. Kidney function has slightly improved. No sign of refeeding syndrome at this time. Will continue to monitor and follow. (09/04) Pt was discussed during AM rounds. Pt remained orally intubated and on vent. Possible trach placement. Pt was receiving HD this afternoon. Per RN, pt tolerated TF of Nepro @40mL/hr but had liquid stool. Rectal tube was present. Visited pt in the room. IVF @30mL/hr, Levophed @10mcg/min, and Fentanyl @ 25mcg/hr. Spoke with Dr. Sweeney on the phone regarding high risk of ischemia bowel or ileus with current TF order. RD rec to trickle feed with Vital HP @10mL/hr OR to initiate standard TPN @40mL/hr to meet nutrition goals. Dr. Sweeney was agreeable with TPN initiation. Order will be placed tomorrow before pharmacy cut-off time at 1500. Will continue to monitor and follow. (08/31) Pt with a change of condition. Pt Coded and was orally intubated and sedated now with a poor prognosis. Wt changes noted and RD is following. (08/24) Chart reviewed. Labs and meds reviewed. 53yo M, who is admitted for chest pain and LE cellulitis. Pt was discussed during AM rounds. Per RN, pt has no urine output with decreased kidney function. Negative cardiac markers. No hx of DM. Visited pt in the room. Pt reports eating very little in the last 2 years. UBW ~410lbs. No weight loss noted. Pt denies any nausea or vomiting at this time. LBM 08/23. Pt denies any chewing or swallowing issue. Pt quit drinking alcohol about 2 weeks ago. Prior to that, pt usually drinks 1 pint of vodka and 2-3 beer a day. Pt refused diet education. Will continue to monitor and follow. Principal Problems/Diagnoses: 1. Fever. 2. Respiratory failure. 3. Status post cardiac arrest. 4. Shock. 5. Acute renal injury, probably underlying chronic kidney disease. 6. Morbidly obese patient. 7. Liver disease, cirrhosis and alcoholism. PMH: no H&Pin chart GI: liquid, brown, green stool Skin: no pressure wound noted Labs: (09/07) BUN 28 H, Creatinine 3.33 H, Ca 8.3 L, Glucose 132 H (09/04) BUN 37 H, Creatinine 5.22 H, glucose 139 H, Mg 2.4 H Meds: insulin, protonix, thiamine, folic acid Ht: 76in Wt: 392lb BMI: 53.2kg/m2 IBW: 202lb Malnutrition Evaluation (08/24) The patient does not meet criteria for a specified degree of malnutrition at this time. Will re-evaluate at follow-up as appropriate. Nutrition Prescription (Diet Order): NPO Estimated Nutritional Needs: Calories: 2002 2548kcal (11-14kcal/kg/d) Weight used: actual BW Protein: 138 184g (1.5-2.0g/kg) Weight used: IBW Diet Adequacy: Not meeting protein needs, not meeting calorie needs Diet Education Needs Assessment: Diet education no indicated. Nutrition Care Level: high (TPN) Nutrition Diagnosis: Inadequate energy intake related to current medical status as evidenced by PN is required to meet nutrition goals. Goal: Patient will meet 75-100% of estimated needs by follow up Progress: Progressing Interventions: Composition, Rate, IVF Monitoring/Evaluation: Total energy intake, Total protein intake, Formula/Solution, IVF, Weight change Signed: Jenna Roland, MS, RD, LD
--- NOTE | 2018-09-07 14:45 | NUR ---
Dr. Padilla here to see patient
[2018-09-07] MEDS: CEFTRIAXONE SOD 1 GM/NS 50 ML 50 ML IV SCH (15:15)
[2018-09-07] MEDS ORDERED: ALBUMIN 25% 25GM 100ML 0.25 GM/ML BTL IV NR (17:45)
[2018-09-07] MEDS: NOREPINEPHRINE INJ 4MG/4ML 8 MG in DEXTROSE 5% 250ML 250 ML IV PRN ×3 (19:00→23:34)
[2018-09-07] MEDS: CENTRAL TPN FORMULA 1 BAG IV SCH (19:50)
[2018-09-07] MEDS: DIPHENHYDRAMINE HCL 25 MG CAP PO SCH (21:00)
[2018-09-08] VITALS (45 sets, daily range): BP systolic 92–156; BP diastolic 26–113
[2018-09-08] MEDS: NOREPINEPHRINE INJ 4MG/4ML 8 MG in DEXTROSE 5% 250ML 250 ML IV PRN ×2 (01:00→02:30)
[2018-09-08] MEDS: INSULIN REGULAR, HUMAN 100 UNIT/1 ML 3ML VIAL SQ SCH ×4 (01:25→18:00)
[2018-09-08 06:38] LABS: HEMATOCRIT 23.5 % (38.2-49.6); HEMOGLOBIN 7.1 g/dL (14.0-18.0); MEAN CORPUSCULAR HEMOGLOBIN 33.6 pg (28-32); MEAN CORPUSCULAR HGB CONC 30.2 g/dL (31-35); MEAN CORPUSCULAR VOLUME 111.4 fL (81-99); PLATELET COUNT 154 x10e3/uL (140-360); RED BLOOD COUNT 2.11 x10e6/uL (4.3-5.7); RED CELL DISTRIBUTION WIDTH 16.4 % (11.7-14.4)
[2018-09-08 06:46] LABS: ANION GAP 15.8 mmol/L (8-16); CALCIUM 8.6 mg/dL (8.4-10.2); CREATININE, SERUM 4.47 mg/dL (0.72-1.25); MAGNESIUM 2.7 MG/DL (1.3-2.1); PHOSPHORUS 3.2 MG/DL (2.3-4.7); POTASSIUM 3.8 mmol/L (3.5-5.1)
[2018-09-08] MEDS: PROPOFOL IV EMULSION 10MG/ML 100 ML IV SCH (07:15)
--- NOTE | 2018-09-08 09:00 | NUR ---
Dr Emmanuel to bedside; discussed patient condition with . Dr Jelani Sweeney paged and 2 PRBCs ordered (preferably with dialysis.) New type and cross sent to lab.
--- NOTE | 2018-09-08 09:08 | NUR ---
Dr Lazar to bedside; right hand finger tip dusky noted, requests patient to have dialysis today; Scarlet called and informed. , Shyann, to bedside, updated on patient condition.
[2018-09-08] MEDS: PANTOPRAZOLE 40 MG 10ML VIAL IV SCH (10:13)
[2018-09-08] MEDS: THIAMINE HCL INJ 100 MG/ML 2ML VIAL IV SCH (10:13)
[2018-09-08] MEDS: LANOLIN 4.5 OZ OINT TP SCH ×3 (10:13→20:12)
[2018-09-08] MEDS: FOLIC ACID 1 MG TAB PO SCH ×2 (10:13→17:47)
[2018-09-08] MEDS: DIPHENOXYLATE/ATROPINE TAB PO SCH ×2 (10:13→17:47)
[2018-09-08] MEDS: BALSAM PERU/CASTOR OIL 60 GM OINT...G. TP SCH (10:13)
[2018-09-08] MEDS ORDERED: SODIUM CHLORIDE 0.9% 250ML 250 ML IV ONE (12:00)
[2018-09-08] MEDS: FLUCONAZOLE 200 MG/100 ML 100 ML IV SCH (12:15)
[2018-09-08] MEDS ORDERED: CENTRAL TPN FORMULA 1 BAG IV SCH ×2 (13:15→20:00)
--- NOTE | 2018-09-08 14:09 | NUR ---
Consult called to Dr Pan for possible trach placement.
--- NOTE | 2018-09-08 14:30 | Progress Note ---
DATE: September 08, 2018 PULMONARY MEDICINE PROGRESS NOTE SUBJECTIVE: Mr. Phan was seen and examined at bedside. He continues intubated. PEEP pressure is 25. Minute ventilation is 10 liters per minute. Hemodialysis 2 to 3 liters is the goal for today. TPN of 80 per hour. Mcfadden is in place with some urine output. REVIEW OF SYSTEMS: No headaches, no bleeding. OBJECTIVE VITAL SIGNS: Afebrile. Vital signs noted per electronic record. GENERALLY: No acute distress, alert and calm. HEENT: Normocephalic, atraumatic. NECK: Supple. Throat midline. LUNGS: Bilateral air entry, a few rhonchi. CARDIOVASCULAR: S1 and S2. No murmurs, rubs or gallops. ABDOMINAL: Soft, nontender. EXTREMITIES: No clubbing, no cyanosis. There is 1+ edema to the legs. INTEGUMENT: No rash. No purpura. LABS: Include 3.8 potassium, 40 BUN, 4.5 creatinine. White count 8.4, hematocrit 24. IMPRESSION AND PLAN 1. Acute respiratory failure. 1. Shock, distributive. 3. Acute kidney failure. 4. Chronic liver disease, alcoholic predominant. Continue antibiotics. Wean from ventilator. Possibly for tracheostomy soon. Patient will have continued dialysis today with the goal as stated, ultimately to achieve 2 to 3 liters off. Continue TPN nutrition. Follow up closely. Job#: [id number] OSITO
[2018-09-08] MEDS: CEFTRIAXONE SOD 1 GM/NS 50 ML 50 ML IV SCH (17:15)
--- NOTE | 2018-09-08 18:06 | Consultation ---
DATE OF CONSULTATION: September 08, 2018 HOSPITAL CONSULTATION HISTORY OF PRESENT ILLNESS: I was kindly asked to see this 53-year-old man for evaluation of tracheostomy tube placement. The patient has a history of multiple medical problems, and suffered a cardiac arrest on August 31, 2018. He has required ventilator support since that time. Initially, he required prolonged pressors for hemodynamic stability. However, he has been successfully weaned from his pressors. It is anticipated he will continue to need ventilator support and subsequent pulmonary toilette. He also has history of severe obstructive sleep apnea, and was unable to tolerate his nasal CPAP machine. Complicating comorbidities include morbid obesity, acute renal failure, as well as liver cirrhosis. His history of present illness, past medical history and past surgical history were reviewed in detail on the chart. PHYSICAL EXAMINATION GENERAL: That patient is morbidly obese. NECK: He has no abnormal neck anatomy noted. ASSESSMENT 1. Respiratory failure. 2. Obstructive sleep apnea. PLAN: Tracheostomy. Job#: [id number] [place]
--- NOTE | 2018-09-08 19:00 | NUR ---
Received report from off going nurse, pt is off sedation and pressers, opens eyes will shake head yes or no, denies pain when questioned by shaking head No. Will continue to monitor until shift is completed.
[2018-09-08] MEDS: DIPHENHYDRAMINE HCL 25 MG CAP PO SCH (20:11)
--- NOTE | 2018-09-08 20:30 | NUR ---
Mother and sister here to visit pt.
[2018-09-08] MEDS: ACETAMINOPHEN 325 MG/10 ML UDC NG PRN (22:52)
--- NOTE | 2018-09-08 23:04 | NUR ---
ADMINISTERED TYLENOL DUE TO CORE TEMP OF 101.7
[2018-09-09] VITALS (24 sets, daily range): BP systolic 91–127; BP diastolic 41–94
--- NOTE | 2018-09-09 00:27 | NUR ---
PT BITING ON ET TUBE AND VENT GOING OFF, INSTRUCTED PT TO STOP BITING ON TUBE AND HE WOULD STOP FOR A MOMENT THEN HE WOULD CONTINUE LATER TO BITE IT.
--- NOTE | 2018-09-09 01:30 | NUR ---
PT Allison ESCOBAR HERE TO SEE PT
--- NOTE | 2018-09-09 04:00 | NUR ---
PT MORE AWAKE SHAKING HEAD BACKWARDS AND FOWARDS, BITS ON TUBE OFF & ON. REQUIRES FREQUENT REMINDERS NOT TO DO THAT AND PT WILL STOP, PT AGITATED AT TIMES.
[2018-09-09 04:54] LABS: BASOPHILS # (AUTO) 0.1 (0.0-0.1); BASOPHILS % 1.1 % (0.0-1.0); EOSINOPHILS # (AUTO) 0.5 (0.0-0.4); EOSINOPHILS % 6.3 % (0.0-6.0); HEMATOCRIT 25.8 % (38.2-49.6); HEMOGLOBIN 8.2 g/dL (14.0-18.0); LYMPHOCYTES # (AUTO) 1.5 (1.0-3.2); MEAN CORPUSCULAR HEMOGLOBIN 33.2 pg (28-32); MEAN CORPUSCULAR HGB CONC 31.8 g/dL (31-35); MEAN CORPUSCULAR VOLUME 104.5 fL (81-99); MONOCYTES # (AUTO) 0.7 (0.2-0.8); NEUTROPHILS # (AUTO) 5.2 (2.1-6.9); NEUTROPHILS % 62.3 % (38.7-80.0); PLATELET COUNT 221 x10e3/uL (140-360); RED BLOOD COUNT 2.47 x10e6/uL (4.3-5.7); RED CELL DISTRIBUTION WIDTH 17.2 % (11.7-14.4)
[2018-09-09 05:20] LABS: MAGNESIUM 2.6 MG/DL (1.3-2.1); PHOSPHORUS 2.8 MG/DL (2.3-4.7)
[2018-09-09 05:26] LABS: ALBUMIN/GLOBULIN RATIO 0.5 (0.8-2.0); ANION GAP 15.8 mmol/L (8-16); CALCIUM 8.8 mg/dL (8.4-10.2); CREATININE, SERUM 3.46 mg/dL (0.72-1.25); POTASSIUM 3.8 mmol/L (3.5-5.1)
[2018-09-09] MEDS: INSULIN REGULAR, HUMAN 100 UNIT/1 ML 3ML VIAL SQ SCH ×4 (06:00→18:00)
--- NOTE | 2018-09-09 07:05 | NUR ---
REPORTED OFF TO ONCOMING NURSE FABI, NO CHANGE IN PT'S STATUS.
[2018-09-09] MEDS: BALSAM PERU/CASTOR OIL 60 GM OINT...G. TP SCH (09:22)
[2018-09-09] MEDS: FOLIC ACID 1 MG TAB PO SCH ×2 (09:39→18:52)
[2018-09-09] MEDS: DIPHENOXYLATE/ATROPINE TAB PO SCH ×2 (09:39→18:52)
[2018-09-09] MEDS: LANOLIN 4.5 OZ OINT TP SCH ×3 (09:39→19:52)
[2018-09-09] MEDS: THIAMINE HCL INJ 100 MG/ML 2ML VIAL IV SCH (09:39)
[2018-09-09] MEDS: PANTOPRAZOLE 40 MG 10ML VIAL IV SCH (09:39)
[2018-09-09] MEDS: FLUCONAZOLE 200 MG/100 ML 100 ML IV SCH (12:30)
--- NOTE | 2018-09-09 14:40 | Progress Note ---
DATE: September 09, 2018 PULMONARY MEDICINE PROGRESS NOTE SUBJECTIVE: Mr. Phan was seen and examined at bedside. He continues to have slow progress. He is having fevers still. He remains on TPN. He is on lipids. He remains off pressor for now more than 24 hours. Patient remains intubated on ventilator. He is awake and following commands. Hemodialysis was 2 liters output yesterday. Rectal tube in place, 2.1 liters in, 2.3 liters out. Mcfadden with some urine output about 100 per shift. REVIEW OF SYSTEMS: No headaches, no bleeding. OBJECTIVE VITAL SIGNS: Afebrile. Vital signs noted per electronic record. GENERAL: No acute distress, alert and calm. HEENT: Normocephalic, atraumatic. NECK: Supple. Throat midline. LUNGS: Bilateral air entry, few rhonchi. CARDIOVASCULAR: S1 and S2. No murmurs, rubs, or gallops. ABDOMINAL: Soft, nontender. EXTREMITIES: No clubbing, no cyanosis. There is 1+ edema to the legs. INTEGUMENT: No rash or purpura. LABS: Potassium 3.8, BUN 32, creatinine 3.5. White count 9, hematocrit 26, platelets 221. IMPRESSION AND PLAN 1. Acute respiratory failure, intubated. 2. Shock that is resolved. 3. Acute kidney failure. 4. Chronic liver failure, acute liver failure is better. Continue ventilator at this time. ENT consult for the sleep apnea and respiratory failure and the need for tracheostomy. Patient furthermore will need continue dialysis as per renal expert. Continued also stay off the pressors. Wean off the TPN and start tube feeds. Patient with fevers. We will follow along closely. Job#: [id number] RENNY
[2018-09-09] MEDS: CEFTRIAXONE SOD 1 GM/NS 50 ML 50 ML IV SCH (18:52)
[2018-09-09] MEDS: DIPHENHYDRAMINE HCL 25 MG CAP PO SCH (19:52)
--- NOTE | 2018-09-09 19:56 | NUR ---
/Dialysis nurse requested 1 bottle of mannitol to give to patient due to blood pressure 87/51 she waited then requested another bottle of mannitol to be given by her. Patient just had been completed his dialysis treatment and 2.5L of fluid was removed, per dialysis nurse Renal was wanting a goal to remove 3L today but the dialysis nurse stopped at the 2.5L jere due to lowering blood pressure. Will continue to monitor patients vital signs through the night
[2018-09-09] MEDS ORDERED: CENTRAL TPN FORMULA 1 BAG IV SCH (20:00)
[2018-09-09] MEDS: ACETAMINOPHEN 325 MG/10 ML UDC NG PRN (23:08)
--- NOTE | 2018-09-09 23:13 | NUR ---
PATIENT BLOOD PRESSURE STILL RUNNING HYPOTENSIVE. PULLED NS 500ML BAG FROM [facility] AND PATIENT WAS GIVEN THE 250ML BOLUS AT THIS TIME. WILL CONTINUE TO MONITOR BP
[2018-09-10] VITALS (19 sets, daily range): BP systolic 95–117; BP diastolic 44–62
--- NOTE | 2018-09-10 00:43 | NUR ---
In Reference to vital signs entered by Reny Mccallum RN: No patient care was provided by myself. Divya Chandler RN is the pts care provider. Vital sign entry completed by myself only as an aid to data communications engineer for Divya Chandler RN.
[2018-09-10 05:24] LABS: BASOPHILS # (AUTO) 0.1 (0.0-0.1); BASOPHILS % 0.8 % (0.0-1.0); EOSINOPHILS # (AUTO) 0.5 (0.0-0.4); EOSINOPHILS % 5.8 % (0.0-6.0); HEMATOCRIT 25.2 % (38.2-49.6); HEMOGLOBIN 7.9 g/dL (14.0-18.0); LYMPHOCYTES # (AUTO) 1.6 (1.0-3.2); LYMPHOCYTES % 19.4 % (18.0-39.1); MEAN CORPUSCULAR HEMOGLOBIN 33.5 pg (28-32); MEAN CORPUSCULAR HGB CONC 31.3 g/dL (31-35); MEAN CORPUSCULAR VOLUME 106.8 fL (81-99); MONOCYTES # (AUTO) 0.8 (0.2-0.8); MONOCYTES % 9.7 % (4.4-11.3); NEUTROPHILS # (AUTO) 5.2 (2.1-6.9); PLATELET COUNT 268 x10e3/uL (140-360); RED BLOOD COUNT 2.36 x10e6/uL (4.3-5.7); RED CELL DISTRIBUTION WIDTH 17.1 % (11.7-14.4)
[2018-09-10] MEDS ORDERED: SODIUM CHLORIDE 0.9% 500ML 500 ML IV ONE (05:45)
[2018-09-10 05:47] LABS: CALCIUM 9.1 mg/dL (8.4-10.2); CREATININE, SERUM 4.85 mg/dL (0.72-1.25); MAGNESIUM 2.9 MG/DL (1.3-2.1); PHOSPHORUS 4.3 MG/DL (2.3-4.7)
--- NOTE | 2018-09-10 06:25 | NUR ---
FOR MORE FREQUENT VITAL SIGNS THAT ARE NOT IN COMPUTER CHARTING. SEE PATIENTs CHART UNDER VITAL SIGN TAB. PRINTED OUT THIS SHIFT VITAL SIGNS
[2018-09-10] MEDS: INSULIN REGULAR, HUMAN 100 UNIT/1 ML 3ML VIAL SQ SCH ×5 (06:30→23:41)
[2018-09-10] MEDS ORDERED: DIPHENOXYLATE/ATROPINE TAB PO PRN (07:30)
[2018-09-10 08:14] LABS: EOSINOPHILS % (MANUAL) 7 % (0-7); LYMPHOCYTES % (MANUAL) 17 % (19-48); MONOCYTES % (MANUAL) 8 % (3.4-9.0); NEUTROPHILS % (MANUAL) 64 % (40-74); PLATELET ESTIMATE ADEQUATE; PLATELET MORPHOLOGY COMMENT NORMAL; RBC MORPHOLOGY COMMENT NORMAL
[2018-09-10] MEDS: PANTOPRAZOLE 40 MG 10ML VIAL IV SCH (10:12)
[2018-09-10] MEDS: BALSAM PERU/CASTOR OIL 60 GM OINT...G. TP SCH (10:21)
[2018-09-10] MEDS: LANOLIN 4.5 OZ OINT TP SCH ×3 (10:21→20:10)
[2018-09-10] MEDS: FOLIC ACID 1 MG TAB PO SCH ×2 (10:21→15:52)
[2018-09-10] MEDS: THIAMINE HCL INJ 100 MG/ML 2ML VIAL IV SCH (10:40)
[2018-09-10] MEDS: FLUCONAZOLE 200 MG/100 ML 100 ML IV SCH (12:45)
--- NOTE | 2018-09-10 14:38 | NUR ---
Dillon Sweeney, Gerardo, and John to bedside.
--- NOTE | 2018-09-10 14:41 | Progress Note ---
DATE: September 10, 2018 PULMONARY MEDICINE PROGRESS NOTE SUBJECTIVE: Mr. Phan was seen and examined at bedside. Feeds at 30 mL/hour. Water at 250 mL every 6 hours. He is on TPN at 30 mL/hour. Rectal tube is in place. Mcfadden with some small output. He is intubated on ventilator. REVIEW OF SYSTEMS: Cannot get as he is on ventilator. OBJECTIVE VITAL SIGNS: Afebrile. Vital signs noted per electronic record. GENERAL: No acute distress, alert, calm, awake and following commands. HEENT: Normocephalic, atraumatic. NECK: Supple. Throat midline. LUNGS: Bilateral air entry, few rhonchi. CARDIOVASCULAR: S1 and S2. No murmurs, rubs, or gallops. ABDOMINAL: Soft, nontender. EXTREMITIES: No clubbing, no cyanosis. There is 2+ leg edema. INTEGUMENT: No rash or purpura. LABS: Potassium 4.0, creatinine 4.8. White count 9, hematocrit 25. IMPRESSION AND PLAN 1. Acute renal failure. 2. Ekrvg-qo-ujwhvns liver failure, better. 3. Acute respiratory failure, intubated. 4. Status post cardiac arrest with excellent neurologic recovery. 5. Shock, resolved. Continue ventilator support. Tomorrow, we will assess the patient again and consider respiratory status. Tentatively, on Tuesday he is scheduled for tracheostomy. TPN to be discontinued. Tube feeds to be increased towards goal. Continue medicines for comfort. Continue antibiotics per infection expert. Follow along closely. Job#: [id number]
--- NOTE | 2018-09-10 16:01 | NUR ---
Right femoral line discontinued and catheter tip sent to lab per Dr Jelani Sweeney's order. Patient awake, alert and communicating by mouthing words around ETT and nodding head in response to "yes/no" questions.
[2018-09-10] MEDS: DIPHENHYDRAMINE HCL 25 MG CAP PO SCH ×2 (20:10→21:00)
[2018-09-10] MEDS: FENTANYL CITRATE INJ 2,000 MCG in SODIUM CHLORIDE 0.9% 250ML 210 ML IV PRN (21:46)
--- NOTE | 2018-09-10 21:46 | NUR ---
STARTED PATIENT BACK ON PRN FENTANYL DRIP DUE TO AGITATION AND IT WILL BENEFIT HIS FLACC PAIN LEVEL.
--- NOTE | 2018-09-10 22:01 | NUR ---
THE 2100 BENADRYL WILL NOT BE GIVEN DUE TO SIDE EFFECTS OF MEDICATION THAT CAN CAUSE A DROP IN BLOOD PRESSURE. BLOOD PRESSURE AT THIS TIME 104/57.
[2018-09-11] VITALS (19 sets, daily range): BP systolic 95–121; BP diastolic 42–72
[2018-09-11] MEDS: ACETAMINOPHEN 325 MG/10 ML UDC NG PRN ×2 (04:49→10:00)
[2018-09-11 05:01] LABS: HEMOGLOBIN 7.7 g/dL (14.0-18.0); MEAN CORPUSCULAR HEMOGLOBIN 33.6 pg (28-32); MEAN CORPUSCULAR HGB CONC 32.1 g/dL (31-35); MEAN CORPUSCULAR VOLUME 104.8 fL (81-99); PLATELET COUNT 331 x10e3/uL (140-360); RED BLOOD COUNT 2.29 x10e6/uL (4.3-5.7); RED CELL DISTRIBUTION WIDTH 16.6 % (11.7-14.4)
[2018-09-11 05:22] LABS: INR 1.01; PROTHROMBIN TIME 14.2 seconds (11.9-14.5)
[2018-09-11 05:23] LABS: PARTIAL THROMBOPLASTIN TIME 44.5 seconds (23.8-35.5)
[2018-09-11 05:37] LABS: MAGNESIUM 2.9 MG/DL (1.3-2.1); PHOSPHORUS 5.5 MG/DL (2.3-4.7)
--- NOTE | 2018-09-11 06:25 | NUR ---
PATIENT HAS BEEN RUNNING A CONSTANT FEVER THROUGH THE NIGHT AROUND 101.8 WITH NURSING INTERVENTIONS SUCH COOL CLOTHS AND ICE PACKS TO BODY AREAS WITH NO SUCCESS. AT 0449 PRN DOSE OF TYLENOL GIVEN FOR TEMP OF 102.1. AT 0530 NO CHANGE IN PATIENTs CORE TEMP A NURSING INTERVENTION A COOLING BLANKET WAS PLACED ON PATIENT.
[2018-09-11] MEDS: DIPHENOXYLATE/ATROPINE TAB PO SCH ×3 (06:30→21:00)
[2018-09-11] MEDS: INSULIN REGULAR, HUMAN 100 UNIT/1 ML 3ML VIAL SQ SCH ×3 (06:39→18:00)
[2018-09-11 06:52] LABS: ALBUMIN/GLOBULIN RATIO 0.5 (0.8-2.0); ANION GAP 20.1 mmol/L (8-16); CALCIUM 9.4 mg/dL (8.4-10.2); CREATININE, SERUM 5.65 mg/dL (0.72-1.25); POTASSIUM 4.1 mmol/L (3.5-5.1)
[2018-09-11 07:08] LABS: EOSINOPHILS % (MANUAL) 2 % (0-7); LYMPHOCYTES % (MANUAL) 26 % (19-48); METAMYELOCYTES % (MANUAL) 1 % (0-0); MONOCYTES % (MANUAL) 8 % (3.4-9.0); MYELOCYTES % (MANUAL) 1 % (0-0); NEUTROPHILS % (MANUAL) 58 % (40-74)
[2018-09-11 07:09] LABS: ANISOCYTOSIS SLIGHT; HYPOCHROMASIA MODERATE; PLATELET ESTIMATE ADEQUATE; PLATELET MORPHOLOGY COMMENT FEW LARGE; RBC MORPHOLOGY COMMENT NORMAL
--- NOTE | 2018-09-11 07:30 | NUR ---
PATIENT RECEIVED WITH EYES OPEN AND MOVING HEAD FROM LEFT TO RIGHT. PATIENT SOMEWHAT ANXIOUS AND FENTANYL DRIP INCREASED FROM 25MCG TO 50 MCG FOR AGITATION AND GENERALIZED PAIN. V/S ARE STABLE. WILL CONTINUE TO MONITOR.
--- NOTE | 2018-09-11 07:45 | NUR ---
ANESTHESIA HERE TO SEE PATIENT FOR DIALYSIS TUNNEL CATHETER PLACEMENT TODAY. CONSENT HAS BEEN SIGNED.
[2018-09-11] MEDS: THIAMINE HCL INJ 100 MG/ML 2ML VIAL IV SCH (09:00)
[2018-09-11] MEDS: PANTOPRAZOLE 40 MG 10ML VIAL IV SCH (09:26)
[2018-09-11] MEDS: LANOLIN 4.5 OZ OINT TP SCH ×3 (09:26→21:00)
[2018-09-11] MEDS: FOLIC ACID 1 MG TAB PO SCH ×2 (09:26→17:00)
[2018-09-11] MEDS: BALSAM PERU/CASTOR OIL 60 GM OINT...G. TP SCH (09:26)
--- NOTE | 2018-09-11 11:00 | NUR ---
DR. Linda ESCOBAR HERE TO SEE PATIENT
--- NOTE | 2018-09-11 11:20 | NUR ---
MAURI NOLASCO WITH DR. PIMENTEL HERE TO SEE PATIENT
--- NOTE | 2018-09-11 11:43 | NUR ---
DIALYSIS IN PROGRESS NOW AND TOLERATING WELL. V/S ARE STABLE.
--- NOTE | 2018-09-11 15:05 | NUR ---
Nutrition Intervention Note RD Recommendation(s) for Physician: - Current order of Nepro @40mL/hr, providing 1728kcal, 78g protein, and 700mL H2O. - Meeting 85% of calorie needs, meeting 78% of protein needs - Rec increasing TF of Nepro to goal of 50mL/hr as medically appropriate (2160kcal, 97g protein, and 872mL of water) to meet 100% of his est needs. - Free water flushes per MD discretion - Check daily labs, weight, GI tolerance Plan of Care: RD following, monitoring for tolerance and adequacy, TF rec Nutrition reason for involvement: Follow up RD Assessment (09/11) Pt was discussed during AM rounds. Pt remained intubated and on vent. Pt received HD today; planned for [facility]. Levophed and TPN were discontinued. Possible trach placement tomorrow. Per RN, Nepro was well tolerated at 40mL/hr without any gastric residual. Communicated TF goal with RN. Will continue to monitor and follow. (09/07) Pt was discussed during AM rounds. Pt remained orally intubated and on vent. Pt received daily HD. Last HD on 09/06 removed 2.1 L fluids. Levophed at 8 mcg per minute. TPN at 60mL/hr. Per RN, TPN will be increased up to 80mL/hr tonight. Reviewed labs. Kidney function has slightly improved. No sign of refeeding syndrome at this time. Will continue to monitor and follow. (09/04) Pt was discussed during AM rounds. Pt remained orally intubated and on vent. Possible trach placement. Pt was receiving HD this afternoon. Per RN, pt tolerated TF of Nepro @40mL/hr but had liquid stool. Rectal tube was present. Visited pt in the room. IVF @30mL/hr, Levophed @10mcg/min, and Fentanyl @ 25mcg/hr. Spoke with Dr. Sweeney on the phone regarding high risk of ischemia bowel or ileus with current TF order. RD rec to trickle feed with Vital HP @10mL/hr OR to initiate standard TPN @40mL/hr to meet nutrition goals. Dr. Sweeney was agreeable with TPN initiation. Order will be placed tomorrow before pharmacy cut-off time at 1500. Will continue to monitor and follow. (08/31) Pt with a change of condition. Pt Coded and was orally intubated and sedated now with a poor prognosis. Wt changes noted and RD is following. (08/24) Chart reviewed. Labs and meds reviewed. 53yo M, who is admitted for chest pain and LE cellulitis. Pt was discussed during AM rounds. Per RN, pt has no urine output with decreased kidney function. Negative cardiac markers. No hx of DM. Visited pt in the room. Pt reports eating very little in the last 2 years. UBW ~410lbs. No weight loss noted. Pt denies any nausea or vomiting at this time. LBM 08/23. Pt denies any chewing or swallowing issue. Pt quit drinking alcohol about 2 weeks ago. Prior to that, pt usually drinks 1 pint of vodka and 2-3 beer a day. Pt refused diet education. Will continue to monitor and follow. Principal Problems/Diagnoses: 1. Fever. 2. Respiratory failure. 3. Status post cardiac arrest. 4. Shock. 5. Acute renal injury, probably underlying chronic kidney disease. 6. Morbidly obese patient. 7. Liver disease, cirrhosis and alcoholism. PMH: no H&Pin chart GI: abdomen soft, non-tender, large, round, liquid brown stool 09/10 Skin: no pressure wound noted Labs: (09/11) BUN 67 H, Creatinine 5.65 H, phos 5.5 H, Mg 2.9 H (09/07) BUN 28 H, Creatinine 3.33 H, Ca 8.3 L, Glucose 132 H (09/04) BUN 37 H, Creatinine 5.22 H, glucose 139 H, Mg 2.4 H Meds: protonix, folic acid Ht: 76in Wt: 392lb 08/31, 401lb 09/11 BMI: 53.2kg/m2 IBW: 202lb Malnutrition Evaluation (08/24) The patient does not meet criteria for a specified degree of malnutrition at this time. Will re-evaluate at follow-up as appropriate. Nutrition Prescription (Diet Order): Nepro @40mL/hr Estimated Nutritional Needs: Calories: 2023 - 2300kcal (22-25kcal/kg/d) Weight used: IBW Protein: 110 - 138g (1.2 1.5g/kg) Weight used: IBW Diet Adequacy: Meeting 85% of calorie needs, meeting 78% of protein needs Diet Education Needs Assessment: Diet education no indicated. Nutrition Care Level: mod Nutrition Diagnosis: Inadequate energy intake related to current medical status as evidenced by EN is required as main source of nutrition. Goal: Patient will meet 75-100% of estimated needs by follow up Progress: Goal met Interventions: Composition, Rate, IVF Monitoring/Evaluation: Total energy intake, Total protein intake, Formula/Solution, IVF, Weight change Signed: Jenna Roland MS, RD, LD
--- NOTE | 2018-09-11 15:15 | NUR ---
Dialysis completed and one Liter removed and tolerated well.
[2018-09-11] MEDS: FLUCONAZOLE 200 MG/100 ML 100 ML IV SCH (18:00)
[2018-09-11] MEDS: DIPHENHYDRAMINE HCL 25 MG CAP PO SCH (21:00)
[2018-09-12] VITALS (18 sets, daily range): BP systolic 75–131; BP diastolic 37–69
--- NOTE | 2018-09-12 01:00 | Progress Note ---
DATE: September 11, 2018 PULMONARY MEDICINE PROGRESS NOTE SUBJECTIVE: Mr. Phan was seen and examined at bedside. He continues to have slow progress. He is on fentanyl 50 mcg per hour for comfort. He is intubated on ventilator. He remains off pressors. Hemodialysis is being done. The patient with Mcfadden with small urine output. He does have a lot of thick secretions from endotracheal tube. REVIEW OF SYSTEMS: Cannot get reliably as he is altered and intubated. OBJECTIVE VITAL SIGNS: Afebrile. Vital signs noted per electronic record. GENERAL: No acute distress, mostly sleeping, on ventilator. HEENT: Normocephalic, atraumatic. NECK: Supple. Throat midline. LUNGS: Bilateral air entry, few rhonchi. CARDIOVASCULAR: S1 and S2. No murmurs, rubs, or gallops. ABDOMINAL: Soft, nontender. EXTREMITIES: No clubbing, no cyanosis. There is 1+ edema to legs. INTEGUMENT: No rash or purpura. LABS: Potassium 4.1, BUN 67, creatinine 5.7. White count 9, hematocrit 25, platelets 331,000. INR 1.01. IMPRESSION 1. Acute respiratory failure, intubated. 2. Shock, resolved. 3. Acute kidney failure, possible chronic kidney disease. 4. Ivrov-rw-aernvcr liver failure, now much improved. 5. Encephalopathy, resolved and he could be totally oriented if not for sedation effects. 6. Status post cardiac arrest, multifactorial. PLAN: The patient is known with difficult airway. Furthermore, he has refractory sleep apnea, not amenable to continuous positive airway pressure therapy. Tomorrow, he is scheduled for tracheostomy to be placed. Continue sedation and pain medicine for comfort. Continue toilet airway secretions. Renal replacement therapy with goal in the negative 1 L with dialysis today. We will follow along closely. Job#: [id number] JASWANT
[2018-09-12 05:11] LABS: HEMATOCRIT 24.9 % (38.2-49.6); HEMOGLOBIN 7.8 g/dL (14.0-18.0); MEAN CORPUSCULAR HEMOGLOBIN 33.1 pg (28-32); MEAN CORPUSCULAR HGB CONC 31.3 g/dL (31-35); MEAN CORPUSCULAR VOLUME 105.5 fL (81-99); PLATELET COUNT 349 x10e3/uL (140-360); RED BLOOD COUNT 2.36 x10e6/uL (4.3-5.7); RED CELL DISTRIBUTION WIDTH 16.3 % (11.7-14.4)
[2018-09-12 05:29] LABS: INR 0.98; PROTHROMBIN TIME 13.9 seconds (11.9-14.5)
[2018-09-12 05:30] LABS: PARTIAL THROMBOPLASTIN TIME 40.6 seconds (23.8-35.5)
[2018-09-12 05:46] LABS: MAGNESIUM 2.1 MG/DL (1.3-2.1); PHOSPHORUS 4.4 MG/DL (2.3-4.7)
[2018-09-12] MEDS: DIPHENOXYLATE/ATROPINE TAB PO SCH ×3 (06:10→21:25)
--- NOTE | 2018-09-12 06:44 | Diagnostic Imaging Report ---
EXAMINATION: CHEST SINGLE (PORTABLE) INDICATION: ^INTUBATED PATIENT ^[id number] ^0545 ^Y COMPARISON: 09/06/2018 FINDINGS: AP view Very limited study due to body habitus and low lung volumes. TUBES and LINES: Stable endotracheal and nasogastric tubes. Stable right internal jugular catheter. LUNGS: Central vascular congestion. Right midlung linear opacification. PLEURA: No pleural effusion or pneumothorax. HEART AND MEDIASTINUM: The cardiomediastinal silhouette is enlarged. BONES AND SOFT TISSUES: No acute osseous lesion. Soft tissues are unremarkable. UPPER ABDOMEN: No free air under the diaphragm. IMPRESSION: Limited study as above. Enlarged cardiomediastinal silhouette and central vascular congestion. Right midlung linear opacification, probably atelectasis. Signed by: Dr. Deondre Gan MD on 09/12/2018 6:41 AM
[2018-09-12 07:19] LABS: ALBUMIN 2.2 g/dL (3.5-5.0); ALBUMIN/GLOBULIN RATIO 0.5 (0.8-2.0); ANION GAP 17.2 mmol/L (8-16); CALCIUM 9.2 mg/dL (8.4-10.2); CREATININE, SERUM 3.77 mg/dL (0.72-1.25); POTASSIUM 4.2 mmol/L (3.5-5.1)
--- NOTE | 2018-09-12 07:25 | NUR ---
SEE PATIENTS CHART FOR THE VITAL SIGNS PAST 0200.
[2018-09-12] MEDS: INSULIN REGULAR, HUMAN 100 UNIT/1 ML 3ML VIAL SQ SCH ×4 (07:28→18:39)
[2018-09-12 07:32] LABS: BAND NEUTROPHILS % (MANUAL) 1 %; EOSINOPHILS % (MANUAL) 2 % (0-7); LYMPHOCYTES % (MANUAL) 13 % (19-48); METAMYELOCYTES % (MANUAL) 2 % (0-0); MONOCYTES % (MANUAL) 4 % (3.4-9.0); NEUTROPHILS % (MANUAL) 78 % (40-74)
[2018-09-12 07:33] LABS: ANISOCYTOSIS SLIGHT; HYPOCHROMASIA SLIGHT
[2018-09-12 07:34] LABS: PLATELET ESTIMATE ADEQUATE; PLATELET MORPHOLOGY COMMENT NORMAL; RBC MORPHOLOGY COMMENT ABNORMAL
[2018-09-12 07:35] LABS: POIKILOCYTOSIS SLIGHT
[2018-09-12] MEDS: ACETAMINOPHEN 325 MG/10 ML UDC NG PRN ×2 (08:30→21:00)
--- NOTE | 2018-09-12 08:40 | NUR ---
DR. BARRAGAN (ANESTHESIOLOGIST) HERE TO SEE PATIENT AND SPOKE TO (SANJUANA) ON PHONE TO DISCUSS ANESTHESIA MEDICATION TO BE GIVEN DURING PROCEDURE.
[2018-09-12] MEDS: PANTOPRAZOLE 40 MG 10ML VIAL IV SCH (08:57)
[2018-09-12] MEDS: THIAMINE HCL INJ 100 MG/ML 2ML VIAL IV SCH (08:57)
[2018-09-12] MEDS: FOLIC ACID 1 MG TAB PO SCH ×2 (08:58→16:51)
[2018-09-12] MEDS: BALSAM PERU/CASTOR OIL 60 GM OINT...G. TP SCH (08:58)
[2018-09-12] MEDS: ERGOCALCIFEROL 50,000 UNIT CAP PO SCH (08:58)
[2018-09-12] MEDS: LANOLIN 4.5 OZ OINT TP SCH ×3 (08:58→21:25)
[2018-09-12] MEDS ORDERED: LIDOCAINE 1% W/EPINEPHRINE 20 ML VIAL ONE (09:31)
[2018-09-12 10:11] LABS: ABG HCO3 26 mmol/L (23-28); ABG PCO2 44 mmHg (41-51); ABG PH 7.38 (7.31-7.41); ABG PO2 109 mmHg (80-105)
[2018-09-12] MEDS ORDERED: NOREPINEPHRINE 8 MG/D5W 250 ML 250 ML ONE (10:18)
--- NOTE | 2018-09-12 10:40 | NUR ---
DR. Linda ESCOBAR HERE TO SEE PATIENT
--- NOTE | 2018-09-12 11:05 | NUR ---
DR. BAUMANN AND OR TEAM HERE AT BEDSIDE AND RT TO TAKE PATIENT TO OR FOR TRACHEOSTOMY PLACEMENT AND AND MOTHER OF PATIENT AT BEDSIDE. CONSENT HAS BEEN SIGNED AND PATIENT'S V/S ARE STABLE. WILL BE TAKEN IN HIS OWN BED. TEMP(CORE) IS NOW 101.[address] PIMENTEL HERE TO SEE PATIENT ALSO.
--- NOTE | 2018-09-12 12:15 | NUR ---
PATIENT RETURNED FROM OR VIA HIS BED AND ACCOMPANIED BY OR TEAM AND DR. BARRAGAN (ANESTHESIA) AND PATIENT TOLERATED PROCEDURE WELL. SHILEY #8 XLT PROXIMAL TRACHE PLACED AND TOLERATED WELL BY PATIENT. TRACHE TO VENT: PRVC-16; TV-500; FIO2-40% and PEEP-5 AND O2 SATS ARE 100%. RESPIRATIONS ARE EVEN AND UNLABORED. PATIENT IS COMFORTABLE AND NO C/O OF PAIN. AND MOTHER OF PATIENT AT BEDSIDE.
--- NOTE | 2018-09-12 12:57 | Operative Report ---
DATE OF PROCEDURE: September 12, 2018 PREOPERATIVE DIAGNOSIS: Respiratory failure. POSTOPERATIVE DIAGNOSIS: Respiratory failure. TITLE OF PROCEDURE: Tracheostomy with #8 Shiley XLT proximal tracheostomy tube. ANESTHESIA: General endotracheal. ESTIMATED BLOOD LOSS: Less than 10 mL. COMPLICATIONS: None. OPERATIVE FINDINGS: Normal neck anatomy. OPERATIVE INDICATIONS: This 53-year-old man presents with a history of respiratory failure necessitating prolonged ventilator support. It is anticipated he will continue needing ventilator support and subsequent pulmonary toilette. The risks, benefits and alternatives to surgical intervention were discussed with the patient's . She gave her informed consent to have this procedure performed. NARRATIVE REPORT: After first obtaining adequate general anesthesia through a previously placed endotracheal tube, the area of incision was infiltrated with 1% lidocaine with epinephrine 1:100,000. A total of 8 mL was used. The patient was then prepped and draped in the usual fashion. A 4-cm incision was made approximately 2 cm above the sternal notch with a #15 blade then carried through the subcutaneous tissues with the Bovie septic tank installer. The strap muscles were identified and divided in the midline with a Roseanna hemostat and then reflected laterally with the Gelpi retractor. The thyroid isthmus was then transected using the Bovie septic tank installer. A cricoid hook was inserted. The cut edges of the thyroid isthmus were then reflected laterally with the Gelpi retractor. The incision was made between the 2nd and 3rd tracheal ring with a #15 blade. An inferiorly based trapezoidal flap created using curved Hou scissors. The #8 Shiley XLT proximal tracheostomy tube was then easily inserted through the tracheostomy site. CO2 was confirmed with exhaled gases. The retractors were then removed. The tracheostomy tube was sutured in place with 2-0 nylon and trach ties were applied. The patient tolerated this procedure well, and was in satisfactory condition at the termination of the procedure. Job#: [id number] HI
--- NOTE | 2018-09-12 13:10 | NUR ---
DR. WETZEL HERE TO SEE PATIENT AND SPEAK WITH AT BEDSIDE.
[2018-09-12] MEDS: FLUCONAZOLE 200 MG/100 ML 100 ML IV SCH (13:49)
--- NOTE | 2018-09-12 14:28 | Progress Note ---
DATE: September 12, 2018 PULMONARY MEDICINE PROGRESS NOTE SUBJECTIVE: Mr. Phan was seen and examined at bedside. Remains on ventilator. He was on minimal ventilation at 11 L per minute, pressure of 1, respiratory rate of 21. Today, he had tracheostomy done. An 8 XLT proximal tracheostomy in place. Rectal tube is in place. He is awake and he has some secretions being suctioned. REVIEW OF SYSTEMS: No headaches. No bleeding. OBJECTIVE VITALS: Afebrile. Vital signs noted per electronic record. GENERAL: No acute distress. Alert and calm. HEENT: Normocephalic and atraumatic. NECK: Supple. Throat midline. LUNGS: Bilateral air entry. Few rhonchi. CARDIOVASCULAR: S1 and S2. No murmurs, rubs or gallops. ABDOMEN: Soft and nontender. EXTREMITIES: No clubbing. No cyanosis. There is 1+ edema to the legs. INTEGUMENT: No rash. No purpura. LABS: Potassium 4.2, BUN 40, creatinine 3.8. White count 9, hematocrit 25, and platelets 249,000. IMPRESSION AND PLAN 1. Postoperative state: Status post tracheostomy. 2. Chronic respiratory failure. 3. Acute respiratory failure. 4. Difficult airway. 5. Severe obstructive sleep apnea: CPAP intolerant. 6. Status post cardiac arrest, respiratory related: Resolved with good neurologic recovery. 7. Acute kidney failure. 8. Acute liver failure on chronic liver disease, much better and resolved to possibly normal. Continue postoperative care after tracheostomy. Careful tracheostomy care. Patient should have hemodialysis catheter placement tomorrow. Patient will have also dialysis tomorrow. Patient furthermore can go to LT hospital after hemodialysis catheter is placed. Will follow along closely. Job#: [id number] CORY
--- NOTE | 2018-09-12 16:32 | NUR ---
DR. GAFFNEY HERE TO SEE PATIENT
[2018-09-12] MEDS ORDERED: PHENYLEPHRINE HCL 1% 10 MG/ML VIAL ONE (17:44)
[2018-09-12] MEDS ORDERED: SEVOFLURANE INHAL SOLN 250 ML PEN BTL ONE (17:44)
[2018-09-12] MEDS ORDERED: MIDAZOLAM HCL 2 MG/2 ML VIAL ONE (18:02)
[2018-09-12] MEDS ORDERED: FENTANYL CITRATE/PF 100MCG/2 ML INJ ONE (18:02)
[2018-09-12] MEDS: DIPHENHYDRAMINE HCL 25 MG CAP PO SCH (21:24)
[2018-09-13] VITALS (23 sets, daily range): BP systolic 91–131; BP diastolic 49–73
[2018-09-13] MEDS: INSULIN REGULAR, HUMAN 100 UNIT/1 ML 3ML VIAL SQ SCH ×4 (00:36→17:56)
[2018-09-13] MEDS: ACETAMINOPHEN 325 MG/10 ML UDC NG PRN ×2 (03:45→20:56)
[2018-09-13 05:08] LABS: BASOPHILS # (AUTO) 0.1 (0.0-0.1); BASOPHILS % 0.7 % (0.0-1.0); EOSINOPHILS # (AUTO) 0.6 (0.0-0.4); EOSINOPHILS % 5.9 % (0.0-6.0); HEMATOCRIT 23.8 % (38.2-49.6); HEMOGLOBIN 7.3 g/dL (14.0-18.0); LYMPHOCYTES # (AUTO) 1.5 (1.0-3.2); LYMPHOCYTES % 13.8 % (18.0-39.1); MEAN CORPUSCULAR HEMOGLOBIN 33.2 pg (28-32); MEAN CORPUSCULAR HGB CONC 30.7 g/dL (31-35); MEAN CORPUSCULAR VOLUME 108.2 fL (81-99); MONOCYTES % 9.3 % (4.4-11.3); NEUTROPHILS # (AUTO) 7.2 (2.1-6.9); PLATELET COUNT 352 x10e3/uL (140-360); RED CELL DISTRIBUTION WIDTH 15.8 % (11.7-14.4)
[2018-09-13] MEDS: DIPHENOXYLATE/ATROPINE TAB PO SCH ×3 (05:32→21:17)
[2018-09-13 05:46] LABS: ALBUMIN/GLOBULIN RATIO 0.5 (0.8-2.0); CALCIUM 9.1 mg/dL (8.4-10.2); CREATININE, SERUM 4.59 mg/dL (0.72-1.25)
[2018-09-13 05:57] LABS: MAGNESIUM 1.9 MG/DL (1.3-2.1); PHOSPHORUS 6.3 MG/DL (2.3-4.7)
[2018-09-13] MEDS: BALSAM PERU/CASTOR OIL 60 GM OINT...G. TP SCH (08:00)
[2018-09-13] MEDS: LANOLIN 4.5 OZ OINT TP SCH ×3 (08:00→20:56)
--- NOTE | 2018-09-13 08:30 | NUR ---
Per Customer Service Dispatcher staff, the tunneled cath will be placed in OR tomorrow, [facility] called and made aware that HD will be need. Stated a nurse will be en route.
[2018-09-13] MEDS: PANTOPRAZOLE 40 MG 10ML VIAL IV SCH (09:00)
[2018-09-13] MEDS: FOLIC ACID 1 MG TAB PO SCH ×2 (09:00→16:28)
[2018-09-13] MEDS: THIAMINE HCL INJ 100 MG/ML 2ML VIAL IV SCH (09:00)
--- NOTE | 2018-09-13 10:28 | NUR ---
REC'D PHONE CALL FROM REINA AT [facility] [phone] CALL FOR ANY DC NEEDS
--- NOTE | 2018-09-13 11:50 | NUR ---
Called Dr Luis Sweeney office and message left regarding consult.
--- NOTE | 2018-09-13 12:00 | NUR ---
Jelani Cooper, Cholo Lopez Preston to bedside.
--- NOTE | 2018-09-13 12:44 | NUR ---
Follow up with Maxwell Novak is aware and patient is on the list for dialysis.
[2018-09-13] MEDS ORDERED: HEPARIN SOD (PORCINE) 1000 UNIT/ML SDV ONE (14:44)
--- NOTE | 2018-09-13 15:36 | NUR ---
Patient on HD, to bedside.
--- NOTE | 2018-09-13 16:15 | Progress Note ---
DATE: 09/13/2018 Pulmonary Medicine Progress Note SUBJECTIVE: Mr. Phan was seen and examined at bedside. He continues to have slow progress. Due to body size, they were not able to perform the hemodialysis access on the operating table for interventional radiology. He did not get the hemodialysis access yet. He is on Nepro 40 mL per hour. Water 100 mL every 6 hours. Urine output is about 30 mL per hour, finally improving. The patient with 100% oxygen saturation on ventilator. REVIEW OF SYSTEMS: No headaches, no bleeding. OBJECTIVE: VITAL SIGNS: Afebrile. Vital signs noted per the chart record. GENERAL: No acute distress. He awakens easily on ventilator. HEENT: Normocephalic and atraumatic. NECK: Supple. Throat midline. LUNGS: Bilateral air entry, few rhonchi. CARDIOVASCULAR: S1 and S2. No murmurs, rubs, or gallops. ABDOMEN: Soft and nontender. EXTREMITIES: No clubbing. No cyanosis. 1+ edema. INTEGUMENT: No rash. No purpura. LABORATORY DATA: Potassium 4.0. BUN 54. Creatinine 4.6. White count 10, hematocrit 23, platelets 356. IMPRESSION AND PLAN: 1. Acute respiratory failure, severe. 2. Very difficult airway. 3. Severe obstructive sleep apnea, CPAP intolerant. 4. Acute kidney failure. 5. Acute on chronic liver failure, now liver failure is much resolved. 6. Status post cardiac arrest with excellent probable recovery of neurologic function. 7. Alcohol dependency. At this time, we will continue treatment. Hemodialysis access to be performed tomorrow in the operating room. The patient will continue on ventilator at this time. Continue toileting airway. likely be for PEG tube and this is being coordinated slowly . Harsha Lopez MD GMN/MODL /[id number]
--- NOTE | 2018-09-13 19:00 | NUR ---
Bedside report received from Kell Stewart RN. Care plan reviewed, no family at the bedside. No signs of distress noted at this time.
--- NOTE | 2018-09-13 20:00 | NUR ---
Pts called and she was given update of pts care plan, vital signs, and plans for possible PEG placement (pending seeing him for new consult) and she is going to come into hospital to talk to MDs about PEG placement in the morning before signing a consent. She said she will call again around 0600 in the morning.
[2018-09-13] MEDS: DIPHENHYDRAMINE HCL 25 MG CAP PO SCH (20:56)
[2018-09-13] MEDS: NOREPINEPHRINE INJ 4MG/4ML 8 MG in DEXTROSE 5% 250ML 250 ML IV PRN (21:32)
[2018-09-13] MEDS: FENTANYL CITRATE INJ 2,000 MCG in SODIUM CHLORIDE 0.9% 250ML 210 ML IV PRN (21:32)
[2018-09-14] VITALS (19 sets, daily range): BP systolic 95–124; BP diastolic 52–88
--- NOTE | 2018-09-14 03:00 | NUR ---
Dr. Allison Sweeney present and assessing the pt. No new orders received at this time.
[2018-09-14] MEDS: INSULIN REGULAR, HUMAN 100 UNIT/1 ML 3ML VIAL SQ SCH ×4 (05:23→18:00)
[2018-09-14] MEDS: DIPHENOXYLATE/ATROPINE TAB PO SCH ×3 (05:33→21:24)
--- NOTE | 2018-09-14 06:15 | NUR ---
Pts just called the unit. Reviewed care plan and updated her on pt vital signs for the night.
--- NOTE | 2018-09-14 07:00 | NUR ---
Bedside report given to Kell Stanford RN. Care plan reviewed, no family at the bedside. Notified Kell to call pts before taking him for any procedures today bc she wants to be present, also notified her that the pts wants to talk to and MD before consenting to PEG tube placement. Notified her that no labs were ordered this morning and that the pts is requesting lab results.
[2018-09-14] MEDS: THIAMINE HCL INJ 100 MG/ML 2ML VIAL IV SCH (09:00)
[2018-09-14] MEDS: PANTOPRAZOLE 40 MG 10ML VIAL IV SCH (09:25)
[2018-09-14] MEDS: FOLIC ACID 1 MG TAB PO SCH ×2 (09:25→18:51)
[2018-09-14] MEDS: LANOLIN 4.5 OZ OINT TP SCH ×3 (09:26→21:24)
[2018-09-14] MEDS: BALSAM PERU/CASTOR OIL 60 GM OINT...G. TP SCH (09:26)
--- NOTE | 2018-09-14 09:26 | NUR ---
Cooling blanket positioned beneath patient, ice packs and cool CHG bath provided.
--- NOTE | 2018-09-14 09:30 | NUR ---
Dr Lazar to bedside; orders rec'd.
[2018-09-14] MEDS ORDERED: VANCOMYCIN 1GM/NS 250 ML 250 ML IV ONE (10:00)
--- NOTE | 2018-09-14 10:00 | NUR ---
Al, Infectious disease, to bedside; orders rec'd.
--- NOTE | 2018-09-14 10:10 | NUR ---
ASSESSMENT: Spiritual distress Pt's worried and tired. Pt's states she is worried about 's illness and probable long-term recovery. Pt's states she senses her 's frustration related to illness. Pt's states their family are not located nearby and are unable to provide much support. Intervention: Provided unhurried pastoral presence. Outcome: Will continue to follow as able. RAMÓN CAMACHO Bottle Inspector Spiritual Care Department O: [phone] Pager: [phone] ([phone] number calling from)
--- NOTE | 2018-09-14 10:21 | NUR ---
Dr Jelani Sweeney to bedside. Patient questions answered. Orders to ensure crown and bridge dental lab technician aware trialysis catheter is to be removed and cultured once tunneled catheter is placed today. Orders for 2 PRBC with HD tomorrow.
[2018-09-14] MEDS ORDERED: SODIUM CHLORIDE 0.9% 250ML 250 ML IV NR (10:30)
--- NOTE | 2018-09-14 11:35 | NUR ---
ST Note: No treatment or other intervention indicated at this time due to other pressing medical needs. Per RN, pt to get PEG tomorrow. Will f/u as indicated.
--- NOTE | 2018-09-14 14:25 | NUR ---
Nutrition Intervention Note (Follow up) RD Recommendation(s) for Physician: - When medically appropriate, rec continuous TF of Nepro at 50mL/hr (2160kcal, 97g protein, and 872mL of water) to meet 100% of his est needs. - Free water flushes per MD discretion - Check daily labs, weight, GI tolerance Plan of Care: RD following, monitoring for tolerance and adequacy, TF rec Nutrition reason for involvement: Follow up RD Assessment (09/14) Pt was status post tracheostomy on 09/12. Possible PEG tube placement tomorrow.TF was on hold for procedure. Communicated TF rec to RN Kell. Will continue to monitor and follow. (09/11) Pt was discussed during AM rounds. Pt remained intubated and on vent. Pt received HD today; planned for [facility] dialysis. Levophed and TPN were discontinued. Possible trach placement tomorrow. Per RN, Nepro was well tolerated at 40mL/hr without any gastric residual. Communicated TF goal with RN. Will continue to monitor and follow. (09/07) Pt was discussed during AM rounds. Pt remained orally intubated and on vent. Pt received daily HD. Last HD on 09/06 removed 2.1 L fluids. Levophed at 8 mcg per minute. TPN at 60mL/hr. Per RN, TPN will be increased up to 80mL/hr tonight. Reviewed labs. Kidney function has slightly improved. No sign of refeeding syndrome at this time. Will continue to monitor and follow. (09/04) Pt was discussed during AM rounds. Pt remained orally intubated and on vent. Possible trach placement. Pt was receiving HD this afternoon. Per RN, pt tolerated TF of Nepro @40mL/hr but had liquid stool. Rectal tube was present. Visited pt in the room. IVF @30mL/hr, Levophed @10mcg/min, and Fentanyl @ 25mcg/hr. Spoke with Dr. Sweeney on the phone regarding high risk of ischemia bowel or ileus with current TF order. RD rec to trickle feed with Vital HP @10mL/hr OR to initiate standard TPN @40mL/hr to meet nutrition goals. Dr. Sweeney was agreeable with TPN initiation. Order will be placed tomorrow before pharmacy cut-off time at 1500. Will continue to monitor and follow. (08/31) Pt with a change of condition. Pt Coded and was orally intubated and sedated now with a poor prognosis. Wt changes noted and RD is following. (08/24) Chart reviewed. Labs and meds reviewed. 53yo M, who is admitted for chest pain and LE cellulitis. Pt was discussed during AM rounds. Per RN, pt has no urine output with decreased kidney function. Negative cardiac markers. No hx of DM. Visited pt in the room. Pt reports eating very little in the last 2 years. UBW ~410lbs. No weight loss noted. Pt denies any nausea or vomiting at this time. LBM 08/23. Pt denies any chewing or swallowing issue. Pt quit drinking alcohol about 2 weeks ago. Prior to that, pt usually drinks 1 pint of vodka and 2-3 beer a day. Pt refused diet education. Will continue to monitor and follow. Principal Problems/Diagnoses: 1. Fever. 2. Respiratory failure. 3. Status post cardiac arrest. 4. Shock. 5. Acute renal injury, probably underlying chronic kidney disease. 6. Morbidly obese patient. 7. Liver disease, cirrhosis and alcoholism. PMH: no H&Pin chart GI: abdomen soft, non-tender, large, round, liquid brown stool 09/10 Skin: no pressure wound noted Labs: (09/13) BUN 54 H, Creatinine 4.59 H, Glucose 122 H (09/11) BUN 67 H, Creatinine 5.65 H, phos 5.5 H, Mg 2.9 H (09/07) BUN 28 H, Creatinine 3.33 H, Ca 8.3 L, Glucose 132 H (09/04) BUN 37 H, Creatinine 5.22 H, glucose 139 H, Mg 2.4 H Meds: protonix, folic acid, lomotil, Ht: 76in Wt: 392lb 08/31, 401lb 09/11, 393lb 09/14 (Weight fluctuates with HD) BMI: 53.2kg/m2 IBW: 202lb Malnutrition Evaluation (09/14) The patient does not meet criteria for a specified degree of malnutrition at this time. Will re-evaluate at follow-up as appropriate. Nutrition Prescription (Diet Order): NPO Estimated Nutritional Needs: Calories: 2023 - 2300kcal (22-25kcal/kg/d) Weight used: IBW Protein: 110 - 138g (1.2 1.5g/kg) Weight used: IBW Diet Adequacy: Not meeting needs TF on hold for procedure Diet Education Needs Assessment: Diet education no indicated. Nutrition Care Level: low Nutrition Diagnosis: Inadequate energy intake related to current medical status as evidenced by EN is required as main source of nutrition. Goal: Patient will meet 75-100% of estimated needs by follow up Progress: N/A Interventions: Composition, Rate, IVF Monitoring/Evaluation: Total energy intake, Total protein intake, Formula/Solution, IVF, Weight change Signed: Jenna Roland MS, RD, LD
--- NOTE | 2018-09-14 14:30 | NUR ---
WOUND CARE CONSULTATION - RE-EVALUATION - Pt in bed,more calm than previous visits but still resists care and pushes back. Team approach with care. - Bilateral Wrist Restraints - Alternating Pressure Air Mattress in use. - Julio Cesar Score 7 - Bilateral Heel Protectors in Use/ Offloading Heels with Pillows. PATIENT VISIT: - Required 4 person assist to turn. - Right Hand Edema +4, with tissue necrosis. Bullae at 2nd & 3rd, and necrosis to 4th and 5th Digits. No Drainage, Painful to touch. Deferred recommending Iodosorb gel at this time because potential of causing more harm with Kerlix wrap. Recommend painting with Betadine at this time. - Sacral Area -Stable. No Change. No Pressure Ulcers. Small Hematoma to Left Gluteal 1x1 cm protruding <1 cm. - Bilateral heels- pink & dry, scaly, no pressure ulcers identified. - Skin Tear Left Posterior Calf. - Perirectal area improving - Rectal tube in place with liquid stool at bag. RECOMMENDATION: Continue Current Treatment Plan with added interventions as follows: 1. Perirectal & Bilateral Gluteal Areas- - Wash area with mild soap and water then pat dry thoroughly. - Apply Lantiseptic Cream TID and PRN Soiling. 2. Right Hand Ischemic Ulcers - Island Walk with Betadine and Leave Open To Air. 3. Continue Alternating Pressure Air Mattress 4. Turn and Reposition q2h. 5. Offload Heels with pillows while in bed. 6. Left Calf Skin Tear - - Cleanse wound with NS and 4x4 gauze. Pat Dry Thoroughly. - Apply Xeroform Single Layer and Cover with Allevyn "Heel" foam dressing daily. Thank you for consulting with Wound Care. Addendum: 09/14/18 at 1450 by Enrike Ca RN Amended: Links added.
--- NOTE | 2018-09-14 18:14 | Progress Note ---
DATE: 09/14/2018 Pulmonary Medicine Progress Note SUBJECTIVE: Mr. Phan was seen and examined at bedside. NG tube in place. Rectal tube in place. Mcfadden with small urine output. He is having more fevers. Airway secretions present. He is still on ventilator, intubated via tracheostomy. REVIEW OF SYSTEMS: Cannot get as he is intubated. OBJECTIVE: VITAL SIGNS: Afebrile. Vital signs are noted per the chart record. GENERAL: He is in no acute distress. Alert and calm, on ventilator. HEENT: Normocephalic and atraumatic. NECK: Supple. Throat midline. LUNGS: Bilateral air entry. Few rhonchi. CARDIOVASCULAR: S1 and S2. No murmurs, rubs, or gallops. ABDOMEN: Soft and obese. EXTREMITIES: No clubbing. No cyanosis. There is 1+ edema. INTEGUMENT: No rash or purpura. LABORATORY DATA: BUN 54, creatinine 4.6, potassium 4.0, white count 11, and hematocrit 24. ASSESSMENT: 1. Acute respiratory failure, on ventilator. 2. Acute chronic respiratory failure, status post tracheostomy. 3. Acute kidney failure. 4. Acute on chronic liver disease, mostly recovered on the acute part. 5. Status post cardiac arrest, multifactorial. 6. Possible pneumonia. 7. Urinary tract infection. PLAN: Continue current treatment at this time. The patient will have continued ventilator support. The patient can have tracheostomy care as indicated. The patient will get hemodialysis access converted to a [facility] access. The patient can resume tube feeds after hemodialysis line is placed today. He will need PEG tube and then he can get LTAC transferred afterwards. MD AR Duffy/JOSIE /[id number]
[2018-09-14] MEDS: FENTANYL CITRATE INJ 2,000 MCG in SODIUM CHLORIDE 0.9% 250ML 210 ML IV PRN (19:00)
--- NOTE | 2018-09-14 19:00 | NUR ---
Bedside report received from Kell Stanford RN. Care plan reviewed, no family present at the bedside. Pt did not received new tunneled HD catheter today and per Kell, the in house cra, ICU director and manager functional, and area director of home health sales are aware and will be following up as needed. Per report from Kell the pts did not get to speak with an MD regarding the PEG tube placement but was given a few pt education sheets, consent remains unsigned by the pts until she speaks with and MD.
[2018-09-14] MEDS: DIPHENHYDRAMINE HCL 25 MG CAP PO SCH (21:24)
[2018-09-15] VITALS (19 sets, daily range): BP systolic 93–137; BP diastolic 49–88
[2018-09-15] MEDS: DIPHENOXYLATE/ATROPINE TAB PO SCH ×3 (05:02→21:36)
[2018-09-15 05:03] LABS: BASOPHILS # (AUTO) 0.1 (0.0-0.1); BASOPHILS % 0.6 % (0.0-1.0); EOSINOPHILS # (AUTO) 0.5 (0.0-0.4); EOSINOPHILS % 3.2 % (0.0-6.0); HEMATOCRIT 24.2 % (38.2-49.6); HEMOGLOBIN 7.4 g/dL (14.0-18.0); LYMPHOCYTES # (AUTO) 1.4 (1.0-3.2); LYMPHOCYTES % 9.3 % (18.0-39.1); MEAN CORPUSCULAR HEMOGLOBIN 32.9 pg (28-32); MEAN CORPUSCULAR HGB CONC 30.6 g/dL (31-35); MEAN CORPUSCULAR VOLUME 107.6 fL (81-99); MONOCYTES # (AUTO) 1.4 (0.2-0.8); MONOCYTES % 9.5 % (4.4-11.3); NEUTROPHILS # (AUTO) 11.5 (2.1-6.9); NEUTROPHILS % 75.4 % (38.7-80.0); PLATELET COUNT 401 x10e3/uL (140-360); RED BLOOD COUNT 2.25 x10e6/uL (4.3-5.7); RED CELL DISTRIBUTION WIDTH 15.8 % (11.7-14.4)
[2018-09-15 05:23] LABS: ANION GAP 18.4 mmol/L (8-16); CALCIUM 9.5 mg/dL (8.4-10.2); CREATININE, SERUM 4.76 mg/dL (0.72-1.25); MAGNESIUM 1.7 MG/DL (1.3-2.1); PHOSPHORUS 6.7 MG/DL (2.3-4.7); POTASSIUM 4.4 mmol/L (3.5-5.1)
[2018-09-15] MEDS: INSULIN REGULAR, HUMAN 100 UNIT/1 ML 3ML VIAL SQ SCH ×5 (06:00→23:48)
[2018-09-15] MEDS ORDERED: LIDOCAINE HCL 1% LOCAL INJ 20 ML VIAL ONE ×2 (07:04→08:41)
[2018-09-15] MEDS ORDERED: SODIUM CHLORIDE 0.9% 500ML 1,000 ML ONE (07:04)
[2018-09-15] MEDS ORDERED: HEPARIN SOD (PORCINE) 1000 UNIT/ML 30ML ONE (07:04)
[2018-09-15 07:56] LABS: ANISOCYTOSIS MODERATE; BAND NEUTROPHILS % (MANUAL) 7 %; EOSINOPHILS % (MANUAL) 3 % (0-7); HYPOCHROMASIA MODERATE; LYMPHOCYTES % (MANUAL) 10 % (19-48); METAMYELOCYTES % (MANUAL) 1 % (0-0); MONOCYTES % (MANUAL) 9 % (3.4-9.0); MYELOCYTES % (MANUAL) 1 % (0-0); NEUTROPHILS % (MANUAL) 69 % (40-74); PLATELET ESTIMATE SLIGHTLY INCREASED; PLATELET MORPHOLOGY COMMENT FEW LARGE; RBC MORPHOLOGY COMMENT ABNORMAL
[2018-09-15] MEDS: THIAMINE HCL INJ 100 MG/ML 2ML VIAL IV SCH (09:00)
[2018-09-15] MEDS: BALSAM PERU/CASTOR OIL 60 GM OINT...G. TP SCH (09:00)
[2018-09-15] MEDS: FOLIC ACID 1 MG TAB PO SCH ×2 (09:00→16:51)
[2018-09-15] MEDS: PANTOPRAZOLE 40 MG 10ML VIAL IV SCH (09:00)
[2018-09-15] MEDS: LANOLIN 4.5 OZ OINT TP SCH ×3 (09:00→21:36)
[2018-09-15] MEDS: ACETAMINOPHEN 325 MG/10 ML UDC NG PRN (10:29)
[2018-09-15] MEDS ORDERED: EPOETIN ALFA 10000 UNIT/ML VIAL SC SCH (11:00)
[2018-09-15] MEDS: VANCOMYCIN 250MG/5ML ORAL SOLN PO SCH ×3 (12:00→23:47)
[2018-09-15] MEDS ORDERED: HEPARIN SOD (PORCINE) 1000 UNIT/ML SDV IV PRN (13:30)
[2018-09-15] MEDS: MEROPENEM 500MG 500 MG in SODIUM CHLORIDE 0.9% 50ML 50 ML IV SCH (16:07)
--- NOTE | 2018-09-15 16:41 | NUR ---
RECEIVED CALL FROM [facility], STATING DR ESCOBAR WANTS TO START [facility]. MET W THE OF PT AT THE BEDSIDE TO DISCUSS LTAC. OLIVA CAZARES WAS PRESENT. STATES SHE WOULD LIKE TO WAIT UNTIL HER SISTER ARRIVES FROM [place] TO ASSIST W TALKING TO THE INSURANCE COMPANY. PT HAS [employer] AND HAS LTAC BENEFITS W [facility]. WOULD LIKE FOR THE PT TO GO TO THE [facility] LOCATION FOR CONTINUUM OF CARE. STATES SHE SPOKE Michelle KAYE PRIOR TO HER 'S CONDITION CHANGING AND KNEW THERE WOULD BE DIFFERENT COST AT THE [facility] LOCATION. THE AGREED TO MEET Michelle BAPTISTE 10:30AM, TUESDAY TO BEGIN THE PROCESS. STATES SHE WOULD PREFER WE BEGIN ON TUESDAY W SUBMITTING CLINICALS FOR AUTH.
--- NOTE | 2018-09-15 17:43 | Progress Note ---
DATE: 09/15/2018 Pulmonary Medicine Progress Note SUBJECTIVE: Mr. Phan was seen and examined at bedside. He continues to have steady progress. The patient with tunneled dialysis catheter placement successfully today. The patient is back in the ICU. He is on ventilator mcg per hour. He had hemodialysis with 1.7 L out with 10 L per minute. REVIEW OF SYSTEMS: Cannot get as he is on ventilator. OBJECTIVE: VITAL SIGNS: Currently afebrile with temperature maximum of 100.3. Vital signs reviewed per the chart record. GENERAL: He is in no acute distress, but sleepy on sedation. HEENT: Normocephalic, atraumatic. NECK: Supple. Throat midline. LUNGS: Bilateral air entry, few rhonchi. CARDIOVASCULAR: S1 and S2. No murmurs, rubs, or gallops. ABDOMEN: Soft and nontender. EXTREMITIES: No clubbing. No cyanosis. There is 1+ edema. INTEGUMENT: No rash. No purpura. LABORATORY DATA: BUN 48, creatinine 4.7. White count 15, hematocrit 24. IMPRESSION: 1. Acute respiratory failure, on ventilator. 2. Chronic respiratory failure, status post tracheostomy. 3. Dysphagia. 4. Acute renal failure. 5. Acute on chronic liver failure, resolved back to the chronic baseline. 6. Status post cardiac arrest. 7. Obstructive sleep apnea with CPAP and tolerating fine. Continue current care at this time. The patient will have the PEG tube done tomorrow. We will perform the weaning tomorrow after procedure is done. The patient of course still has dry balance as his kidneys tolerate. Continue dialysis and renal status per Nephrology expert. Continue followup of the intermittent fevers. The patient requires close followup of the white count. The patient remains in critical condition, but he is slowly improving. Family of course wishes to continue to pursue aggressive management of his multiorgan failure syndrome. The patient prophylaxis. Harsha Lopez MD GMN/MODL /[id number]
[2018-09-15] MEDS ORDERED: VANCOMYCIN 1GM/NS 250 ML 250 ML IV ONE (18:00)
--- NOTE | 2018-09-15 18:31 | NUR ---
Spoke with Scarlet Gasca (Jose Maria) and notified them of orders from Dr. Dubois of need for dialysis in am and they have added her to their list.
[2018-09-15 19:57] LABS: WBC,FECAL (FECAL LACTOFERRIN) POSITIVE (NEGATIVE)
[2018-09-15] MEDS: DIPHENHYDRAMINE HCL 25 MG CAP PO SCH (21:36)
[2018-09-16] VITALS (24 sets, daily range): BP systolic 95–139; BP diastolic 52–88
[2018-09-16 05:56] LABS: ALBUMIN 1.8 g/dL (3.5-5.0); ALBUMIN/GLOBULIN RATIO 0.3 (0.8-2.0); ANION GAP 18.7 mmol/L (8-16); CALCIUM 9.9 mg/dL (8.4-10.2); CREATININE, SERUM 4.14 mg/dL (0.72-1.25); POTASSIUM 4.7 mmol/L (3.5-5.1)
[2018-09-16] MEDS: INSULIN REGULAR, HUMAN 100 UNIT/1 ML 3ML VIAL SQ SCH ×3 (06:25→18:00)
[2018-09-16] MEDS: DIPHENOXYLATE/ATROPINE TAB PO SCH ×3 (06:34→20:25)
[2018-09-16] MEDS: VANCOMYCIN 250MG/5ML ORAL SOLN PO SCH ×5 (06:34→20:26)
[2018-09-16 07:55] LABS: BASOPHILS # (AUTO) 0.1 (0.0-0.1); BASOPHILS % 0.6 % (0.0-1.0); EOSINOPHILS # (AUTO) 0.6 (0.0-0.4); EOSINOPHILS % 4.2 % (0.0-6.0); HEMATOCRIT 26.3 % (38.2-49.6); HEMOGLOBIN 8.1 g/dL (14.0-18.0); LYMPHOCYTES # (AUTO) 1.4 (1.0-3.2); LYMPHOCYTES % 9.8 % (18.0-39.1); MEAN CORPUSCULAR HGB CONC 30.8 g/dL (31-35); MONOCYTES # (AUTO) 1.4 (0.2-0.8); MONOCYTES % 9.7 % (4.4-11.3); NEUTROPHILS # (AUTO) 10.6 (2.1-6.9); NEUTROPHILS % 73.2 % (38.7-80.0); PLATELET COUNT 371 x10e3/uL (140-360); RED BLOOD COUNT 2.53 x10e6/uL (4.3-5.7); RED CELL DISTRIBUTION WIDTH 18.4 % (11.7-14.4)
[2018-09-16 08:41] LABS: ANISOCYTOSIS SLIGHT; BAND NEUTROPHILS % (MANUAL) 6 %; EOSINOPHILS % (MANUAL) 1 % (0-7); LYMPHOCYTES % (MANUAL) 11 % (19-48); METAMYELOCYTES % (MANUAL) 1 % (0-0); MONOCYTES % (MANUAL) 6 % (3.4-9.0); MYELOCYTES % (MANUAL) 1 % (0-0); NEUTROPHILS % (MANUAL) 74 % (40-74)
[2018-09-16 08:42] LABS: PLATELET ESTIMATE ADEQUATE; PLATELET MORPHOLOGY COMMENT NORMAL; RBC MORPHOLOGY COMMENT ABNORMAL
[2018-09-16] MEDS: LANOLIN 4.5 OZ OINT TP SCH ×3 (08:43→20:27)
[2018-09-16] MEDS: BALSAM PERU/CASTOR OIL 60 GM OINT...G. TP SCH (08:43)
[2018-09-16] MEDS: FOLIC ACID 1 MG TAB PO SCH ×2 (08:43→16:22)
[2018-09-16] MEDS: THIAMINE HCL INJ 100 MG/ML 2ML VIAL IV SCH (09:00)
[2018-09-16] MEDS: PANTOPRAZOLE 40 MG 10ML VIAL IV SCH (09:00)
[2018-09-16] MEDS ORDERED: CARVEDILOL 12.5 MG TAB PO SCH (10:30)
[2018-09-16] MEDS ORDERED: NOREPINEPHRINE 8 MG/D5W 250 ML 250 ML ONE (13:09)
[2018-09-16] MEDS: NOREPINEPHRINE INJ 4MG/4ML 8 MG in DEXTROSE 5% 250ML 250 ML IV PRN (13:24)
[2018-09-16] MEDS: MEROPENEM 500MG 500 MG in SODIUM CHLORIDE 0.9% 50ML 50 ML IV SCH (13:30)
--- NOTE | 2018-09-16 16:12 | Diagnostic Imaging Report ---
EXAMINATION: CHEST SINGLE (PORTABLE) INDICATION: Pneumonia. COMPARISON: Chest radiograph 09/12/2018. FINDINGS: Exam somewhat limited by soft tissue attenuation. TUBES and LINES: There is a tracheostomy with tube tip terminating at the thoracic inlet. Enteric tube courses into the stomach, the tip is not seen. There is a right IJ tunneled hemodialysis catheter with tip terminating at the expected location of the cavoatrial junction. LUNGS: Moderate lung volumes. There is central vascular congestion with interstitial and perihilar opacities. There is linear subsegmental atelectasis in the right lower lung zone. There is increased left retrocardiac opacity and persistent patchy right basilar opacity. PLEURA: No pleural effusion or pneumothorax. HEART AND MEDIASTINUM: The cardiomediastinal silhouette is mildly enlarged. BONES AND SOFT TISSUES: No acute osseous abnormality. UPPER ABDOMEN: No free air under the diaphragm. IMPRESSION: Cardiomegaly with mild pulmonary interstitial edema. Bibasilar patchy opacities, increased on the left could reflect atelectasis or pneumonia in the appropriate clinical context. Signed by: Dr. Joanne Hernandez MD on 09/16/2018 4:09 PM
[2018-09-16] MEDS ORDERED: VANCOMYCIN 1GM/NS 250 ML 250 ML IV ONE ×2 (18:00→18:15)
[2018-09-16] MEDS: DIPHENHYDRAMINE HCL 25 MG CAP PO SCH (20:25)
--- NOTE | 2018-09-16 22:31 | Progress Note ---
DATE: 09/16/2018 Pulmonary Medicine Progress Note SUBJECTIVE: Mr. Phan was seen and examined at bedside. He continues on ventilator. He is on ventilator support. The patient had hemodialysis 1 liter out. However, the patient with significant hypotension and blood pressure to the 50s and 60s. He was resuscitated. He is getting ready for PEG tube. REVIEW OF SYSTEMS: Cannot get as he is on the ventilator. OBJECTIVE: VITAL SIGNS: Afebrile. Vital signs noted per the chart record. GENERAL: No acute distress, alert and calm. HEENT: Normocephalic and atraumatic. NECK: Supple. Throat midline. LUNGS: Bilateral air entry, few rhonchi. CARDIOVASCULAR: S1 and S2. No murmurs, rubs, or gallops. ABDOMEN: Soft and nontender. EXTREMITIES: No clubbing. No cyanosis. There is 1 to 2+ edema. INTEGUMENT: No rash. No purpura. LABORATORY DATA: Potassium 4.7, creatinine 4.1. White count 14, hematocrit 26. IMPRESSION AND PLAN: 1. Acute respiratory failure, on ventilator. 2. Chronic respiratory failure, tracheostomy. 3. Dysphagia. 4. Acute liver failure, resolved, back to chronic liver disease. 5. Acute kidney failure, end-stage renal disease. 6. Status post pneumonia, urinary tract infection, cardiac arrest, difficult airway, obstructive sleep apnea with CPAP intolerance. Continue current treatment at this time. PEG tube today. Continue ventilator support today. Watch the blood pressure as it is very labile. The patient will be good for LTAC to continue the weaning over there. Resume weaning after the patient gets PEG tube done. Care for hypotension around dialysis. MD AR Duffy/MODL /[id number]
[2018-09-17] VITALS (23 sets, daily range): BP systolic 95–134; BP diastolic 46–73
[2018-09-17] MEDS: VANCOMYCIN 250MG/5ML ORAL SOLN PO SCH (00:22)
[2018-09-17] MEDS: DIPHENOXYLATE/ATROPINE TAB PO SCH (00:22)
--- NOTE | 2018-09-17 03:32 | Operative Report ---
DATE OF PROCEDURE: 09/16/2018 SURGEON: John Sweeney MD PROCEDURE: EGD and PEG tube placement. INDICATIONS FOR EGD: Dysphagia, the patient is status post tracheostomy, NG tube feeding dependent. MEDICATION: The patient was done under general endotracheal anesthesia. Please see anesthesiologist note. PROCEDURE IN DETAIL: With the patient in the supine position and after induction of adequate general endotracheal anesthesia, the flexible fiberoptic Olympus gastroscope was introduced into the esophagus under direct visualization without any difficulty. The GE junction was ulcerated. The scope was then advanced with ease into the stomach. Mucosa overlying the antrum and the body revealed some diffuse erythema. The pylorus was of normal contour and shape, was intubated with ease and the scope was advanced all the way to the second portion of the duodenum. The scope was then withdrawn slowly. Mucosa overlying the proximal second portion and the duodenal bulb appeared to be within normal limits. The scope was then withdrawn back into the stomach and retroflexed. Mucosa overlying the fundus and cardia appeared to be within normal limits. The scope was then straightened out and after delineation of a safe entry point per external digital palpation of the chest and abdominal , PEG tube insertion was carried out in usual fashion. The scope was subsequently withdrawn after documenting a good positioning of the intragastric bumper. The patient tolerated the procedure well. IMPRESSION: 1. Ulcerated gastroesophageal junction. 2. Gastritis. 3. PEG tube insertion carried out in the usual fashion. The patient tolerated the procedure well. G-tube to drain to gravity x24 hours and a Mcfadden bag then can use. John Sweeney MD [facility] [place]/JOSIE /[id number] cc: Min Sweeney MD
[2018-09-17 05:13] LABS: BASOPHILS # (AUTO) 0.1 (0.0-0.1); BASOPHILS % 0.7 % (0.0-1.0); EOSINOPHILS # (AUTO) 0.5 (0.0-0.4); EOSINOPHILS % 3.5 % (0.0-6.0); HEMATOCRIT 24.3 % (38.2-49.6); HEMOGLOBIN 7.4 g/dL (14.0-18.0); LYMPHOCYTES # (AUTO) 1.9 (1.0-3.2); LYMPHOCYTES % 12.7 % (18.0-39.1); MEAN CORPUSCULAR HEMOGLOBIN 31.6 pg (28-32); MEAN CORPUSCULAR HGB CONC 30.5 g/dL (31-35); MEAN CORPUSCULAR VOLUME 103.8 fL (81-99); MONOCYTES # (AUTO) 1.5 (0.2-0.8); MONOCYTES % 10.2 % (4.4-11.3); NEUTROPHILS # (AUTO) 10.2 (2.1-6.9); NEUTROPHILS % 68.4 % (38.7-80.0); PLATELET COUNT 353 x10e3/uL (140-360); RED BLOOD COUNT 2.34 x10e6/uL (4.3-5.7); RED CELL DISTRIBUTION WIDTH 17.4 % (11.7-14.4)
[2018-09-17 05:34] LABS: ALBUMIN 1.8 g/dL (3.5-5.0); ALBUMIN/GLOBULIN RATIO 0.4 (0.8-2.0); ANION GAP 18.2 mmol/L (8-16); CALCIUM 9.5 mg/dL (8.4-10.2); CREATININE, SERUM 5.11 mg/dL (0.72-1.25); POTASSIUM 4.2 mmol/L (3.5-5.1)
[2018-09-17] MEDS: INSULIN REGULAR, HUMAN 100 UNIT/1 ML 3ML VIAL SQ SCH ×4 (06:02→17:27)
[2018-09-17] MEDS: FOLIC ACID 1 MG TAB PO SCH ×2 (08:56→17:17)
[2018-09-17] MEDS: BALSAM PERU/CASTOR OIL 60 GM OINT...G. TP SCH (08:57)
[2018-09-17] MEDS: LANOLIN 4.5 OZ OINT TP SCH ×3 (08:57→20:16)
[2018-09-17] MEDS: THIAMINE HCL INJ 100 MG/ML 2ML VIAL IV SCH (09:00)
[2018-09-17] MEDS: PANTOPRAZOLE 40 MG 10ML VIAL IV SCH (09:01)
[2018-09-17 09:25] LABS: C DIFFICILE TOXIN A&B AMP PROB NEGATIVE (NEGATIVE)
[2018-09-17 09:59] LABS: BAND NEUTROPHILS % (MANUAL) 7 %; EOSINOPHILS % (MANUAL) 2 % (0-7); LYMPHOCYTES % (MANUAL) 13 % (19-48); MONOCYTES % (MANUAL) 6 % (3.4-9.0); NEUTROPHILS % (MANUAL) 72 % (40-74); PLATELET ESTIMATE ADEQUATE; PLATELET MORPHOLOGY COMMENT NORMAL; RBC MORPHOLOGY COMMENT NORMAL
[2018-09-17] MEDS: MEROPENEM 500MG 500 MG in SODIUM CHLORIDE 0.9% 50ML 50 ML IV SCH (11:00)
[2018-09-17] MEDS: VANCOMYCIN 1GM/NS 250 ML 250 ML IV SCH (15:00)
--- NOTE | 2018-09-17 15:01 | NUR ---
[facility] called and I spoke to Tejas regarding need for this patient to be receiving dialysis in am on 08/18/18.
--- NOTE | 2018-09-17 15:05 | NUR ---
Correction of Previous Entry: Dialysis to be done in am of 09/18/18 and [facility] notified.
--- NOTE | 2018-09-17 15:25 | NUR ---
Visit made by the Spiritual Care Department Pastoral Visitor, Garrick Khan. PV provided pastoral presence. Pastoral Visitor informed pt/family of the scope of [employer] and availability. RAMÓN CAMACHO Vice President Of Compliance Spiritual Care Department O: [phone] Pager: [phone] ([phone] number calling from)
[2018-09-17] MEDS: COLCHICINE 0.6 MG TAB PO SCH (17:17)
[2018-09-17] MEDS: ACETAMINOPHEN 325 MG/10 ML UDC NG PRN (17:24)
--- NOTE | 2018-09-17 17:49 | Progress Note ---
DATE: 09/17/2018 Pulmonary Medicine Progress Note SUBJECTIVE: Mr. Phan was seen and examined at bedside. 99% oxygen saturation. He is on ventilator. He is having lot of airway secretions. 101.6 temperature currently and he is having some fevers. Fentanyl 50 mcg/minute. Rectal tube in place. Urine output with Mcfadden. His PEG tube was done successfully yesterday. REVIEW OF SYSTEMS: No bleeding, no chest pain. He is awake on the ventilator. OBJECTIVE: VITAL SIGNS: The patient with lot of fevers. GENERAL: Awake, on ventilator, calm. HEENT: Normocephalic and atraumatic. NECK: Supple. Throat midline. LUNGS: Bilateral air entry, few rhonchi. Cardiovascular: S1 and S2. No murmurs, rubs, or gallops. ABDOMEN: Soft, nontender, obese. EXTREMITIES: No clubbing. No cyanosis. There is still 1+ edema. INTEGUMENT: No rash or purpura. LABORATORY DATA: Potassium 4.2, bicarbonate 22, BUN 15, hematocrit 24. IMPRESSION AND PLAN: 1. Acute respiratory failure, on ventilator. 2. Chronic respiratory failure, status post tracheostomy. 3. Persistent refractory fevers, could be drug or substance related. 4. Dysphagia, status post PEG tube. 5. Acute renal failure, end-stage renal disease. 6. Acute liver failure, status post resolution back to the chronic liver failure. 7. Pneumonia. PEG to drainage at this time. PEG cleared for usage starting at 6 p.m. today. Nepro at 40/hour will be a goal. Continue dialysis per Renal expert. Weaning to be done more aggressively. He is ready for LTAC. Continue medicines for comfort. Harsha Lopez MD GMN/MODL /[id number]
[2018-09-17] MEDS: DIPHENHYDRAMINE HCL 25 MG CAP PO SCH (20:15)
[2018-09-18] VITALS (26 sets, daily range): BP systolic 98–134; BP diastolic 49–80
[2018-09-18] MEDS: FENTANYL CITRATE INJ 2,000 MCG in SODIUM CHLORIDE 0.9% 250ML 210 ML IV PRN (01:47)
[2018-09-18 04:57] LABS: BASOPHILS # (AUTO) 0.1 (0.0-0.1); BASOPHILS % 0.6 % (0.0-1.0); EOSINOPHILS # (AUTO) 0.4 (0.0-0.4); EOSINOPHILS % 2.8 % (0.0-6.0); HEMATOCRIT 24.9 % (38.2-49.6); HEMOGLOBIN 7.6 g/dL (14.0-18.0); LYMPHOCYTES # (AUTO) 1.3 (1.0-3.2); LYMPHOCYTES % 10.3 % (18.0-39.1); MEAN CORPUSCULAR HEMOGLOBIN 31.7 pg (28-32); MEAN CORPUSCULAR HGB CONC 30.5 g/dL (31-35); MEAN CORPUSCULAR VOLUME 103.8 fL (81-99); MONOCYTES # (AUTO) 1.2 (0.2-0.8); MONOCYTES % 10.1 % (4.4-11.3); NEUTROPHILS # (AUTO) 8.8 (2.1-6.9); NEUTROPHILS % 71.1 % (38.7-80.0); PLATELET COUNT 337 x10e3/uL (140-360); RED CELL DISTRIBUTION WIDTH 16.9 % (11.7-14.4)
[2018-09-18 05:24] LABS: ALBUMIN 1.7 g/dL (3.5-5.0); ALBUMIN/GLOBULIN RATIO 0.3 (0.8-2.0); ANION GAP 17.8 mmol/L (8-16); CALCIUM 9.4 mg/dL (8.4-10.2); CREATININE, SERUM 5.11 mg/dL (0.72-1.25); POTASSIUM 4.8 mmol/L (3.5-5.1)
[2018-09-18] MEDS: INSULIN REGULAR, HUMAN 100 UNIT/1 ML 3ML VIAL SQ SCH ×4 (05:36→18:55)
--- NOTE | 2018-09-18 06:30 | Diagnostic Imaging Report ---
EXAMINATION: CHEST SINGLE (PORTABLE) INDICATION: ^BILATERAL PNEUMONIA ON VENTILATOR ^[id number] ^[id number] ^Y COMPARISON: 09/16/2018 FINDINGS: AP view TUBES and LINES: Stable tracheostomy tube and right internal jugular dialysis catheter. LUNGS: Very limited study due to body habitus, low lung volumes, and positioning. Pulmonary vascular congestion. PLEURA: No significant pleural effusion or pneumothorax. HEART AND MEDIASTINUM: The cardiomediastinal silhouette is enlarged on this AP view. BONES AND SOFT TISSUES: No acute osseous lesion. Soft tissues are unremarkable. UPPER ABDOMEN: No free air under the diaphragm. IMPRESSION: Very limited study as above. Enlarged cardiomediastinal silhouette and pulmonary vascular congestion, accentuated by low lung volumes and AP technique. Underlying pneumonia cannot be excluded. Signed by: Dr. Deondre Gan MD on 09/18/2018 6:26 AM
[2018-09-18] MEDS: LANOLIN 4.5 OZ OINT TP SCH ×3 (09:00→21:14)
[2018-09-18] MEDS: BALSAM PERU/CASTOR OIL 60 GM OINT...G. TP SCH (09:00)
[2018-09-18] MEDS: THIAMINE HCL INJ 100 MG/ML 2ML VIAL IV SCH (09:00)
[2018-09-18] MEDS: FOLIC ACID 1 MG TAB PO SCH ×2 (10:45→18:43)
[2018-09-18] MEDS: PANTOPRAZOLE 40 MG 10ML VIAL IV SCH (10:45)
[2018-09-18] MEDS: COLCHICINE 0.6 MG TAB PO SCH ×2 (10:45→18:43)
--- NOTE | 2018-09-18 11:34 | NUR ---
AND [id number] MET Michelle BAPTISTE FROM [facility] TO DISCUSS LTAC. FAMILY CHOSE [facility], BUT ARE REQUESTING THE [facility] LOCATION FOR CONTINUUM OF CARE. CHOICE LETTER WAS SIGNED AND COPY TO AND COPY TO CHART. WILL AWAIT INSURANCE AUTH.
--- NOTE | 2018-09-18 14:05 | NUR ---
ST Note: Discussed case with CHILO Loredo, who reported pt not appropriate for any dysphagia intervention at this time. Will f/u as indicated.
[2018-09-18] MEDS: MEROPENEM 500MG 500 MG in SODIUM CHLORIDE 0.9% 50ML 50 ML IV SCH (15:00)
[2018-09-18] MEDS: VANCOMYCIN 1GM/NS 250 ML 250 ML IV SCH (16:09)
--- NOTE | 2018-09-18 17:40 | Progress Note ---
DATE: 09/18/2018 Pulmonary Medicine Progress Note SUBJECTIVE: Mr. Phan was seen and examined at bedside. He continues on ventilator, 16/500/50/5 of PEEP. Respiratory rate is 22. Peak pressure is 16. Minimum ventilation 10 L/minute. Tube feeds at 40 per hour tolerated. Additional water 100 cc every 6 hours. The patient at this time for dialysis withdrawal of 2 L output. Previously, his blood pressure fell during dialysis, so it was not totally at goal. REVIEW OF SYSTEMS: Cannot get at this time as he is not speaking. OBJECTIVE: VITAL SIGNS: Afebrile, vital signs noted per the chart record. GENERAL: In no acute distress, alert and calm in bed. HEENT: Normocephalic, atraumatic. NECK: Supple. Throat midline. LUNGS: Bilateral air entry, few rhonchi. CARDIOVASCULAR: S1, S2. No murmurs, rubs, or gallops. ABDOMEN: Soft, nontender. EXTREMITIES: No clubbing, no cyanosis. There is 3+ pedal edema. There is only 1+ pretibial edema. LABORATORY DATA: Potassium 4.8, BUN 72, creatinine 5.1. White count 12, hematocrit 25, platelets 337. IMPRESSION AND PLAN: 1. Acute respiratory failure, on ventilator. 2. Chronic respiratory failure, status post tracheostomy. 3. Dysphagia, status post feeding tube line. 4. Very difficult airway. 5. Obstructive sleep apnea with history of CPAP intolerance. 6. Shock, resolved. 7. Acute kidney failure. 8. Finnx-fp-ejxocuy liver disease, much better. This time we will continue current treatment. Dialysis today to keep the patient on backup ventilator mode due to previous hypotension. We will consider resuming SIMV weaning if he does well. Continue to get slow negative fluid balance as tolerated. Continue tube feeds. Additional water per Renal expert. The patient will continue on antibiotics at this time. Harsha Lopez MD GMN/MODL /[id number]
[2018-09-18] MEDS: EPOETIN ALFA 10000 UNIT/ML VIAL SC SCH (18:41)
[2018-09-18] MEDS ORDERED: PROPOFOL IV EMULSION 10 MG/ML 20 ML VIAL ONE (19:30)
[2018-09-18] MEDS: DIPHENHYDRAMINE HCL 25 MG CAP PO SCH (21:18)
[2018-09-19] VITALS (19 sets, daily range): BP systolic 102–161; BP diastolic 50–87
--- NOTE | 2018-09-19 05:00 | NUR ---
SEE PATIENTS CHART UNDER VITAL SIGN TAB FOR VITAL SIGNS AFTER MIDNIGHT. WAS UNABLE TO CHART UNDER VITAL SIGN ATTEMPTED SEVERAL TIMES BUT COMPUTER WAS NOT ALLOWING DOCUMENTATION
[2018-09-19 05:17] LABS: BASOPHILS # (AUTO) 0.1 (0.0-0.1); BASOPHILS % 0.7 % (0.0-1.0); EOSINOPHILS # (AUTO) 0.5 (0.0-0.4); EOSINOPHILS % 3.7 % (0.0-6.0); HEMATOCRIT 23.8 % (38.2-49.6); HEMOGLOBIN 7.3 g/dL (14.0-18.0); LYMPHOCYTES # (AUTO) 1.6 (1.0-3.2); LYMPHOCYTES % 12.5 % (18.0-39.1); MEAN CORPUSCULAR HGB CONC 30.7 g/dL (31-35); MEAN CORPUSCULAR VOLUME 104.4 fL (81-99); MONOCYTES # (AUTO) 1.4 (0.2-0.8); MONOCYTES % 10.9 % (4.4-11.3); NEUTROPHILS # (AUTO) 8.6 (2.1-6.9); NEUTROPHILS % 65.9 % (38.7-80.0); PLATELET COUNT 317 x10e3/uL (140-360); RED BLOOD COUNT 2.28 x10e6/uL (4.3-5.7); RED CELL DISTRIBUTION WIDTH 16.7 % (11.7-14.4)
[2018-09-19 05:34] LABS: ANION GAP 14.9 mmol/L (8-16); CALCIUM 9.2 mg/dL (8.4-10.2); CREATININE, SERUM 3.67 mg/dL (0.72-1.25); MAGNESIUM 1.7 MG/DL (1.3-2.1); PHOSPHORUS 4.8 MG/DL (2.3-4.7); POTASSIUM 3.9 mmol/L (3.5-5.1)
[2018-09-19] MEDS: INSULIN REGULAR, HUMAN 100 UNIT/1 ML 3ML VIAL SQ SCH ×5 (06:00→23:11)
[2018-09-19 07:05] LABS: ANISOCYTOSIS SLIGHT; BAND NEUTROPHILS % (MANUAL) 5 %; EOSINOPHILS % (MANUAL) 5 % (0-7); LYMPHOCYTES % (MANUAL) 14 % (19-48); MONOCYTES % (MANUAL) 5 % (3.4-9.0); NEUTROPHILS % (MANUAL) 70 % (40-74); PLATELET ESTIMATE ADEQUATE; POIKILOCYTOSIS SLIGHT
[2018-09-19] MEDS: ERGOCALCIFEROL 50,000 UNIT CAP PO SCH (09:00)
[2018-09-19] MEDS: FOLIC ACID 1 MG TAB PO SCH ×2 (09:50→17:00)
[2018-09-19] MEDS: THIAMINE HCL INJ 100 MG/ML 2ML VIAL IV SCH (09:50)
[2018-09-19] MEDS: COLCHICINE 0.6 MG TAB PO SCH ×2 (09:50→17:00)
[2018-09-19] MEDS: PANTOPRAZOLE 40 MG 10ML VIAL IV SCH (09:50)
[2018-09-19] MEDS: LANOLIN 4.5 OZ OINT TP SCH ×3 (10:00→22:21)
[2018-09-19] MEDS: BALSAM PERU/CASTOR OIL 60 GM OINT...G. TP SCH (10:00)
--- NOTE | 2018-09-19 14:09 | Progress Note ---
DATE: 09/19/2018 Pulmonary Medicine Progress Note SUBJECTIVE: Mr. Phan was seen and examined at bedside. He continues with steady progress. Large amount of secretions. He is having these fevers still. He is on ventilator via tracheostomy. Tube feeds at 40 mL/hour. Fentanyl 150 mcg/hour. 1.7 L in, 2.9 L out. REVIEW OF SYSTEMS: No ability to get as he is on ventilator. OBJECTIVE: GENERAL: Continues with fevers as noted. VITAL SIGNS: Noted per record. HEENT: Normocephalic, atraumatic. NECK: Supple. Throat midline. LUNGS: Bilateral air entry, few rhonchi. CARDIOVASCULAR: S1, S2. No murmurs, rubs, or gallops. ABDOMINAL: Soft, nontender, obese. EXTREMITIES: No clubbing, no cyanosis, there is 1+ edema of the legs, 3+ edema to the feet. LABORATORY DATA: , 3.7 creatinine, 26 bicarbonate, 120 glucose. 13 white count, 24 hematocrit, 270 platelets. IMPRESSION: 1. Acute respiratory failure, on ventilator. 2. Acute kidney failure, . 3. Zvqne-hx-jimybmm liver failure, with acute component, probably resolved. 4. Ischemic right hand digits. 5. Persistent fevers. 6. Morbid obesity. 7. CPAP intolerance, obstructive sleep apnea. 8. Chronic respiratory failure, status post tracheostomy. PLAN: We will continue to wean down the fentanyl and get him weaning further. Large amount of secretions from the airway being fevers, refuses modified antibiotics. Consideration could be later to stop antibiotics, change medicines for possible drug reaction. Follow up closely. Dialysis as needed. Feeding from the PEG tube to continue. Continue weaning on ventilator as much as his pain allows. MD AR Duffy/MODL /[id number]
--- NOTE | 2018-09-19 14:12 | NUR ---
ST Note: Per Gertrude, pt not appropriate for any assessment today. Will f/u as indicated.
[2018-09-19] MEDS: METHYLPREDNISOLONE SOD SUCC 40 MG/ML VIAL 1ML IV SCH ×2 (15:18→22:21)
[2018-09-19] MEDS: VANCOMYCIN 1GM/NS 250 ML 250 ML IV SCH (15:19)
[2018-09-19] MEDS: MEROPENEM 500MG 500 MG in SODIUM CHLORIDE 0.9% 50ML 50 ML IV SCH (15:19)
[2018-09-19] MEDS: ACETAMINOPHEN 325 MG/10 ML UDC NG PRN (15:26)
[2018-09-19] MEDS: DIPHENHYDRAMINE HCL 25 MG CAP PO SCH (22:21)
--- NOTE | 2018-09-19 23:11 | NUR ---
I did not administer the 0000 insulin. It was administered by Divya Chandler RN but [facility] would not allow her to document the administration. Yolanda Cortez RN and myself only witnessed administration.
--- NOTE | 2018-09-19 23:12 | NUR ---
UNABLE TO CHART INSULIN GIVEN IN [facility]. BLOOD GLUCOSE 207 AND 14UNTIS OF INSULIN GIVEN. BUT HAD TWO NURSES TO WITNESS
[2018-09-20] VITALS (25 sets, daily range): BP systolic 102–148; BP diastolic 59–91
[2018-09-20 04:54] LABS: BASOPHILS # (AUTO) 0.1 (0.0-0.1); BASOPHILS % 0.7 % (0.0-1.0); EOSINOPHILS % 0.1 % (0.0-6.0); HEMATOCRIT 29.5 % (38.2-49.6); LYMPHOCYTES # (AUTO) 0.9 (1.0-3.2); LYMPHOCYTES % 5.2 % (18.0-39.1); MEAN CORPUSCULAR HEMOGLOBIN 32.1 pg (28-32); MEAN CORPUSCULAR HGB CONC 30.5 g/dL (31-35); MEAN CORPUSCULAR VOLUME 105.4 fL (81-99); MONOCYTES # (AUTO) 0.6 (0.2-0.8); MONOCYTES % 3.6 % (4.4-11.3); NEUTROPHILS # (AUTO) 14.1 (2.1-6.9); NEUTROPHILS % 80.4 % (38.7-80.0); PLATELET COUNT 339 x10e3/uL (140-360); RED CELL DISTRIBUTION WIDTH 16.1 % (11.7-14.4)
[2018-09-20 05:20] LABS: ANION GAP 17.9 mmol/L (8-16); CREATININE, SERUM 3.95 mg/dL (0.72-1.25); PHOSPHORUS 7.3 MG/DL (2.3-4.7); POTASSIUM 4.9 mmol/L (3.5-5.1)
[2018-09-20] MEDS: INSULIN REGULAR, HUMAN 100 UNIT/1 ML 3ML VIAL SQ SCH ×3 (05:52→18:00)
--- NOTE | 2018-09-20 07:20 | NUR ---
Patient received on Simv-16 ; FI02-50%; TV-500; PEEP-5 AND 02 SATS ARE 98%. PATIENT HAS LOTS OF THICK, FROTHY PALE YELLOW SECRETIONS AND REQUIRES FREQUENT SUCTIONING. V/S ARE STABLE. DENIES ANY PAIN AT THIS TIME. AWAKE AND TRYING TO COMMUNICATE BY MOUTHING WORDS. HAS PAIN WHEN MOVING OR TOUCHING HIS HANDS, ARMS OR LEGS. PATIENT HAS NOTICEABLE GOUT (WHITE RAISED AREAS TO HIS KNUCKLES ) ON BOTH HANDS, MORE PROMINENT ON RIGHT HAND FINGERS.
[2018-09-20 07:58] LABS: LYMPHOCYTES % (MANUAL) 6 % (19-48); METAMYELOCYTES % (MANUAL) 1 % (0-0); MONOCYTES % (MANUAL) 8 % (3.4-9.0); MYELOCYTES % (MANUAL) 4 % (0-0); NEUTROPHILS % (MANUAL) 81 % (40-74)
[2018-09-20 07:59] LABS: ANISOCYTOSIS SLIGHT; PLATELET ESTIMATE ADEQUATE; PLATELET MORPHOLOGY COMMENT RARE EDTA CLUMPING; RBC MORPHOLOGY COMMENT ABNORMAL
[2018-09-20 08:00] LABS: HYPOCHROMASIA MODERATE
[2018-09-20] MEDS: PANTOPRAZOLE 40 MG 10ML VIAL IV SCH (09:22)
[2018-09-20] MEDS: METHYLPREDNISOLONE SOD SUCC 40 MG/ML VIAL 1ML IV SCH ×2 (09:23→21:32)
[2018-09-20] MEDS: SERTRALINE HCL 50 MG TAB PEG SCH (09:23)
[2018-09-20] MEDS: COLCHICINE 0.6 MG TAB PO SCH ×2 (09:23→17:30)
[2018-09-20] MEDS: FOLIC ACID 1 MG TAB PO SCH ×2 (09:24→17:30)
[2018-09-20] MEDS: LANOLIN 4.5 OZ OINT TP SCH ×3 (09:24→21:32)
[2018-09-20] MEDS: BALSAM PERU/CASTOR OIL 60 GM OINT...G. TP SCH (09:24)
[2018-09-20] MEDS: THIAMINE HCL INJ 100 MG/ML 2ML VIAL IV SCH (09:32)
--- NOTE | 2018-09-20 10:00 | NUR ---
Physical Therapy here and patient assisted completely to sit on side of bed by 3 people. Patient was held up in sitting patient by PT (2 people) and myself and tolerated well for about 10 minutes. He then said that he was tired and returned back to supine position and placed on Turning Mode on his Air Mattress Bed.
--- NOTE | 2018-09-20 11:00 | NUR ---
PEG TUBE HAS HIGH RESIDUALS OF 500CC AND TUBE FEEDING PLACED ON HOLD.
--- NOTE | 2018-09-20 12:30 | NUR ---
Dialysis here at bedside to begin dialysis.
--- NOTE | 2018-09-20 15:32 | NUR ---
Nutrition Intervention Note (Follow up) RD Recommendation(s) for Physician: - Rec to hold TF at this time - Rec to obtain CT abd/pel to determine cause of GI intolerance - Check daily labs, weight - Consult RD when pt is appropriate to feed Plan of Care: RD following, monitoring for tolerance and adequacy Nutrition reason for involvement: Follow up RD Assessment (09/20) Pt was discussed during AM rounds. HD today. Per RN Ninoska, pt had copious amount of secretion from trach. Pt had ~450+ mL gastric residual. TF was on hold. RD spoke with RN and rec to hold TF and obtain CT abd/pel as pt was tolerating TF well in the past. Will continue to monitor and follow. (09/14) Pt was status post tracheostomy on 09/12. Possible PEG tube placement tomorrow.TF was on hold for procedure. Communicated TF rec to CHILO Castorena. Will continue to monitor and follow. (09/11) Pt was discussed during AM rounds. Pt remained intubated and on vent. Pt received HD today; planned for termite control technician dialysis. Levophed and TPN were discontinued. Possible trach placement tomorrow. Per RN, Nepro was well tolerated at 40mL/hr without any gastric residual. Communicated TF goal with RN. Will continue to monitor and follow. (09/07) Pt was discussed during AM rounds. Pt remained orally intubated and on vent. Pt received daily HD. Last HD on 09/06 removed 2.1 L fluids. Levophed at 8 mcg per minute. TPN at 60mL/hr. Per RN, TPN will be increased up to 80mL/hr tonight. Reviewed labs. Kidney function has slightly improved. No sign of refeeding syndrome at this time. Will continue to monitor and follow. (09/04) Pt was discussed during AM rounds. Pt remained orally intubated and on vent. Possible trach placement. Pt was receiving HD this afternoon. Per RN, pt tolerated TF of Nepro @40mL/hr but had liquid stool. Rectal tube was present. Visited pt in the room. IVF @30mL/hr, Levophed @10mcg/min, and Fentanyl @ 25mcg/hr. Spoke with Dr. Sweeney on the phone regarding high risk of ischemia bowel or ileus with current TF order. RD rec to trickle feed with Vital HP @10mL/hr OR to initiate standard TPN @40mL/hr to meet nutrition goals. Dr. Sweeney was agreeable with TPN initiation. Order will be placed tomorrow before pharmacy cut-off time at 1500. Will continue to monitor and follow. (08/31) Pt with a change of condition. Pt Coded and was orally intubated and sedated now with a poor prognosis. Wt changes noted and RD is following. (08/24) Chart reviewed. Labs and meds reviewed. 53yo M, who is admitted for chest pain and LE cellulitis. Pt was discussed during AM rounds. Per RN, pt has no urine output with decreased kidney function. Negative cardiac markers. No hx of DM. Visited pt in the room. Pt reports eating very little in the last 2 years. UBW ~410lbs. No weight loss noted. Pt denies any nausea or vomiting at this time. LBM 08/23. Pt denies any chewing or swallowing issue. Pt quit drinking alcohol about 2 weeks ago. Prior to that, pt usually drinks 1 pint of vodka and 2-3 beer a day. Pt refused diet education. Will continue to monitor and follow. Principal Problems/Diagnoses: 1. Fever. 2. Respiratory failure. 3. Status post cardiac arrest. 4. Shock. 5. Acute renal injury, probably underlying chronic kidney disease. 6. Morbidly obese patient. 7. Liver disease, cirrhosis and alcoholism. PMH: no H&Pin chart GI: abdomen soft, non-tender, large, round, liquid brown stool 09/10 Skin: no pressure wound noted Labs: (09/20) BUN 71 H, creatinine 3.95 H, glucose 145 H, phosphorus 7.3 H (09/13) BUN 54 H, Creatinine 4.59 H, Glucose 122 H (09/11) BUN 67 H, Creatinine 5.65 H, phos 5.5 H, Mg 2.9 H (09/07) BUN 28 H, Creatinine 3.33 H, Ca 8.3 L, Glucose 132 H (09/04) BUN 37 H, Creatinine 5.22 H, glucose 139 H, Mg 2.4 H Meds: thiamine, folic acid, solu-medrol, protonix, insulin Ht: 76in Wt: 392lb 08/31, 401lb 09/11, 393lb 09/14; 418lb (Weight fluctuates with HD) BMI: 53.2kg/m2 IBW: 202lb Malnutrition Evaluation (09/14) The patient does not meet criteria for a specified degree of malnutrition at this time. Will re-evaluate at follow-up as appropriate. Nutrition Prescription (Diet Order): Nepro @40Ml/hr Estimated Nutritional Needs: Calories: 2023 - 2300kcal (22-25kcal/kg/d) Weight used: IBW Protein: 110 - 138g (1.2 1.5g/kg) Weight used: IBW Diet Adequacy: Not meeting needs TF on hold Diet Education Needs Assessment: Diet education no indicated. Nutrition Care Level: mod Nutrition Diagnosis: Inadequate energy intake related to current medical status as evidenced by EN is required as main source of nutrition. Goal: Patient will meet 75-100% of estimated needs by follow up Progress: N/A Interventions: Composition, Rate, IVF Monitoring/Evaluation: Total energy intake, Total protein intake, Formula/Solution, IVF, Weight change Signed: Jenna Roland, MS, RD, LD
--- NOTE | 2018-09-20 17:00 | NUR ---
Dialysis completed and 2 Liters taken off and tolerated well. Respirations are even and unlabored. Frequent suctioning of pale, yellow secretions every 1 to 2 hours.
[2018-09-20] MEDS: MEROPENEM 500MG 500 MG in SODIUM CHLORIDE 0.9% 50ML 50 ML IV SCH (17:30)
[2018-09-20] MEDS: VANCOMYCIN 1GM/NS 250 ML 250 ML IV SCH (18:00)
[2018-09-20] MEDS: ACETAMINOPHEN 325 MG/10 ML UDC NG PRN (18:20)
[2018-09-20] MEDS: EPOETIN ALFA 10000 UNIT/ML VIAL SC SCH (18:50)
[2018-09-20] MEDS: DIPHENHYDRAMINE HCL 25 MG CAP PO SCH (21:32)
--- NOTE | 2018-09-20 23:44 | Progress Note ---
DATE: 09/20/2018 Pulmonary Medicine Progress Note SUBJECTIVE: Mr. Phan was seen and examined at bedside. Tube feeds at 40 mL/hr. Water at 100 mL every 6 hours. support came done to 12 on SIMV ventilator setting. Hemodialysis 2 L out today. Chest x-ray with mild REVIEW OF SYSTEMS: Cannot get reliably as he is not talking. OBJECTIVE: VITAL SIGNS: Afebrile, vital signs noted per electronic record. Temperature maximum over the whole day so far is 101.9 last night. GENERAL: In bed, awake, alert. HEENT: Normocephalic, atraumatic. NECK: Supple. Throat midline. Tracheostomy in place. CARDIOVASCULAR: S1, S2. No murmurs, rubs, or gallops. RESPIRATORY: Bilateral air entry, few rhonchi. ABDOMEN: Obese, nontender. EXTREMITIES: No clubbing, no cyanosis. There is 1+ edema pretibial, 3+ edema to the feet. LABS: 4.9 potassium, 71 BUN, 3.9 creatinine. 17 white count, 30 hematocrit, 339 platelets. White blood count increased to 17.5, 30 hematocrit, 339 platelets. IMPRESSION AND PLAN: 1. Acute respiratory failure, on ventilator. 2. Chronic respiratory failure, status post tracheostomy. 3. Dysphagia, status post feeding tube. 4. Acute kidney failure. 5. Nicrs-kn-vlpgntg liver failure. 6. Status post cardiac arrest. 7. Morbid obesity with difficult airway and obstructive sleep apnea with CPAP intolerance. 8. Continue intubated state with tracheostomy at this point. Continue ventilator weaning. The patient will continue tube feeds as tolerated. Temperature curve per Infectious Disease expert. Hemodialysis with continued therapy as needed per repossessor. The patient is ready to go to long-term acute care hospital facility for better respiratory care and weaning and improvement of respiratory function. Harsha Lopez MD [facility]/MODL /[id number]
[2018-09-21] VITALS (23 sets, daily range): BP systolic 108–171; BP diastolic 57–96
[2018-09-21] MEDS: INSULIN REGULAR, HUMAN 100 UNIT/1 ML 3ML VIAL SQ SCH ×4 (00:27→18:00)
[2018-09-21 05:04] LABS: BASOPHILS % 0.2 % (0.0-1.0); HEMATOCRIT 25.6 % (38.2-49.6); LYMPHOCYTES # (AUTO) 0.8 (1.0-3.2); LYMPHOCYTES % 6.5 % (18.0-39.1); MEAN CORPUSCULAR HEMOGLOBIN 32.1 pg (28-32); MEAN CORPUSCULAR HGB CONC 31.3 g/dL (31-35); MEAN CORPUSCULAR VOLUME 102.8 fL (81-99); MONOCYTES # (AUTO) 0.8 (0.2-0.8); NEUTROPHILS # (AUTO) 10.3 (2.1-6.9); NEUTROPHILS % 81.5 % (38.7-80.0); PLATELET COUNT 268 x10e3/uL (140-360); RED BLOOD COUNT 2.49 x10e6/uL (4.3-5.7); RED CELL DISTRIBUTION WIDTH 15.7 % (11.7-14.4)
[2018-09-21] MEDS: ACETAMINOPHEN 325 MG/10 ML UDC NG PRN (05:55)
[2018-09-21 05:56] LABS: ALBUMIN 1.8 g/dL (3.5-5.0); ALBUMIN/GLOBULIN RATIO 0.3 (0.8-2.0); ANION GAP 16.8 mmol/L (8-16); CALCIUM 9.2 mg/dL (8.4-10.2); CREATININE, SERUM 2.53 mg/dL (0.72-1.25); POTASSIUM 3.8 mmol/L (3.5-5.1)
[2018-09-21] MEDS: PANTOPRAZOLE 40 MG 10ML VIAL IV SCH (09:21)
[2018-09-21] MEDS: METHYLPREDNISOLONE SOD SUCC 40 MG/ML VIAL 1ML IV SCH ×2 (09:21→21:09)
[2018-09-21] MEDS: SERTRALINE HCL 50 MG TAB PEG SCH (09:22)
[2018-09-21] MEDS: COLCHICINE 0.6 MG TAB PO SCH (09:24)
[2018-09-21] MEDS: FOLIC ACID 1 MG TAB PO SCH ×2 (09:24→17:00)
[2018-09-21] MEDS: BALSAM PERU/CASTOR OIL 60 GM OINT...G. TP SCH (09:24)
[2018-09-21] MEDS: LANOLIN 4.5 OZ OINT TP SCH ×3 (09:24→21:09)
[2018-09-21] MEDS: THIAMINE HCL INJ 100 MG/ML 2ML VIAL IV SCH (09:34)
--- NOTE | 2018-09-21 10:35 | NUR ---
Physical therapy here and assisted patient to sit up on edge of bed and tolerated well for approx. 10-15 minutes. Linens changed. Patient mouthed words that he was ready to lay back in bed due to feeling tired and returned back to bed. Turning mode applied to air mattress bed. V/S are stable.
[2018-09-21] MEDS: MEROPENEM 500MG 500 MG in SODIUM CHLORIDE 0.9% 50ML 50 ML IV SCH (11:00)
--- NOTE | 2018-09-21 11:45 | Diagnostic Imaging Report ---
Procedure: Tunneled hemodialysis catheter placement. Medications: Patient was on a Fentanyl drip from the ICU. The patient's vital signs, including pulse oximetry, were continuously monitored by the interventional radiology nurse. Fluoroscopy time: 1.0 minutes. Dose area product: 656.2 cGycm2 Contrast used: None Estimated blood loss: Minimal. Complications: No immediate. Procedure in detail: Informed consent for the procedure was obtained from the patient's . The right neck and upper chest was prepped and draped in the standard full barrier sterile fashion after the patient was placed in the supine position. 1% lidocaine was administered into the skin and subcutaneous tissues of the right lower neck for local anesthesia. A 0.035 " Amplatz superstiff wire placed through the temporary catheter and the catheter removed. Dilator was then placed over the wire. Intravascular length to the upper right atrium was determined. Attention was then turned to the right upper chest. A suitable catheter exit site was determined, approximately 3 fingerbreadths inferior to the clavicle. The skin was marked. 1% lidocaine was used to anesthetize a subcutaneous tract extending from the planned catheter exit site to the venotomy at the right lower neck. An incision was made on the right upper chest. Subsequently, the catheter was tunneled from the exit site of the right upper chest to the venotomy at the right lower neck. The retention cuff of the catheter was advanced well into the subcutaneous tunnel. Serial dilatation was accomplished over the Amplatz wire. Finally, a 16.5-South African peel-away sheath was advanced over the wire under fluoroscopic guidance. The wire and inner dilator of the sheath were removed and the catheter was advanced through the peel-away sheath, which was then broken and removed. The catheter tip was positioned in the upper right atrium/cavoatrial junction. Each catheter lumen showed good bidirectional flow. Each lumen was then packed with 2000 units of heparin. The catheter was secured at the exit site on the right upper chest with monofilament nylon suture. A purse string suture utilizing Vicryl suture around the catheter entrance site was placed. The venotomy at the right lower neck was closed with interrupted Vicryl sutures. Tissue adhesive was also placed at the venotomy in the neck. A sterile dressing was applied. The patient tolerated the procedure well without immediate complication. Impression: 1. Successful placement of a tunneled dual-lumen Bard split tip hemodialysis catheter (16-South African, 23-cm tip-cuff length) by a right internal jugular approach. 2. The line is okay for immediate use. Signed by: Dr. Breezy Delarosa DO on 09/15/2018 2:20 PM
[2018-09-21] MEDS: FLUCONAZOLE 400MG/200ML BAG 200 ML IV SCH (14:30)
--- NOTE | 2018-09-21 15:30 | NUR ---
at bedside and having pleasant visit with patient. Dr. Linda Sweeney here to see patient and spoke with also.
[2018-09-21] MEDS: VANCOMYCIN 1GM/NS 250 ML 250 ML IV SCH (15:35)
--- NOTE | 2018-09-21 17:30 | NUR ---
Dr. Carrillo (neuro) here to see patient and pleased with patient's progress. V/S are stable. Respirations are even and unlabored.
--- NOTE | 2018-09-21 17:39 | Progress Note ---
DATE: 09/21/2018 Pulmonary Medicine Progress Note SUBJECTIVE: Mr. Phan was seen and examined at bedside. He continues to have ventilator dependence. He is awake on ventilator and trying to mouth out words. Mcfadden in place. Rectal tube in place. Minimum ventilation is 14 L a minute. REVIEW OF SYSTEMS: No headache. No GI bleed. OBJECTIVE: VITAL SIGNS: Afebrile. Vital signs noted per the chart record. GENERAL: In no distress, alert, slightly anxious on ventilator. HEENT: Normocephalic and atraumatic. NECK: Supple. Throat midline. LUNGS: Bilateral air entry, few rhonchi. CARDIOVASCULAR: S1 and S2. No murmurs, rubs, or gallops. ABDOMEN: Soft, nontender. EXTREMITIES: No clubbing or cyanosis. There is 1+ pretibial edema, 3+ foot edema. INTEGUMENT: No rash. No purpura. LABORATORY DATA: Potassium 3.8, 59 BUN, and 2.5 creatinine. White count 12, 25 hematocrit, and 268 platelets. IMPRESSION: 1. Acute respiratory failure, on ventilator. 2. Chronic respiratory failure, status post tracheostomy. 3. Acute kidney failure. 4. Acute on chronic liver failure, improved, back to chronic baseline. 5. Chronic alcoholism. 6. Status post cardiac arrest, respiratory failure. 7. Difficult airway. 8. Severe obstructive sleep apnea with CPAP intolerance. PLAN: Continue tracheostomy at this time. Continue ventilator weaning. The patient is well. We will continue all restorative care to prevent decubitus formation. Local care to his ischemic right arm, digits. Follow along closely. Remains in critical condition. He is ready to go to the long-term acute care hospital for further multidisciplinary care including wound care, respiratory ventilator care, dialysis, and high maintenance restorative care and then hopefully later on skilled therapy. Harsha Lopez MD [facility]/MODL /[id number]
[2018-09-21] MEDS: DIPHENHYDRAMINE HCL 25 MG CAP PO SCH (21:09)
[2018-09-21] MEDS: FENTANYL CITRATE INJ 2,000 MCG in SODIUM CHLORIDE 0.9% 250ML 210 ML IV PRN (22:44)
[2018-09-22] VITALS (19 sets, daily range): BP systolic 125–158; BP diastolic 73–97
[2018-09-22] MEDS: INSULIN REGULAR, HUMAN 100 UNIT/1 ML 3ML VIAL SQ SCH ×4 (00:17→18:56)
[2018-09-22] MEDS: ACETAMINOPHEN 325 MG/10 ML UDC NG PRN (03:28)
[2018-09-22 04:49] LABS: BASOPHILS % 0.2 % (0.0-1.0); HEMATOCRIT 26.4 % (38.2-49.6); HEMOGLOBIN 8.4 g/dL (14.0-18.0); LYMPHOCYTES # (AUTO) 0.8 (1.0-3.2); LYMPHOCYTES % 6.9 % (18.0-39.1); MEAN CORPUSCULAR HEMOGLOBIN 31.8 pg (28-32); MEAN CORPUSCULAR HGB CONC 31.8 g/dL (31-35); MONOCYTES # (AUTO) 0.7 (0.2-0.8); MONOCYTES % 6.6 % (4.4-11.3); NEUTROPHILS # (AUTO) 8.9 (2.1-6.9); NEUTROPHILS % 81.4 % (38.7-80.0); PLATELET COUNT 252 x10e3/uL (140-360); RED BLOOD COUNT 2.64 x10e6/uL (4.3-5.7); RED CELL DISTRIBUTION WIDTH 15.7 % (11.7-14.4)
[2018-09-22 05:05] LABS: ANION GAP 18.2 mmol/L (8-16); CALCIUM 8.6 mg/dL (8.4-10.2); CREATININE, SERUM 2.94 mg/dL (0.72-1.25); POTASSIUM 4.2 mmol/L (3.5-5.1)
[2018-09-22 08:05] LABS: LYMPHOCYTES % (MANUAL) 8 % (19-48); MONOCYTES % (MANUAL) 9 % (3.4-9.0); NEUTROPHILS % (MANUAL) 83 % (40-74)
[2018-09-22 08:06] LABS: PLATELET ESTIMATE SLIGHTLY INCREASED; PLATELET MORPHOLOGY COMMENT NORMAL
[2018-09-22 08:07] LABS: ANISOCYTOSIS SLIGHT; RBC MORPHOLOGY COMMENT NORMAL
[2018-09-22] MEDS: LANOLIN 4.5 OZ OINT TP SCH ×3 (09:00→22:59)
[2018-09-22] MEDS: BALSAM PERU/CASTOR OIL 60 GM OINT...G. TP SCH (09:00)
--- NOTE | 2018-09-22 11:22 | Progress Note ---
DATE: 09/22/2018 Pulmonary Medicine Progress Note SUBJECTIVE: Mr. Phan was seen and examined at bedside. The patient on fentanyl 60 mcg/hour as he was kind of restless and pulling his devices. Nepro 1.8 at 40 mL/hour. He is on water 100 q.6 hours. He is on ventilator continuing on the weaning and now he is on the pressure support of 10. Respiratory rate 19. Minute ventilation 11 L/minute. Peak pressure is from 20 to 40 cm. REVIEW OF SYSTEMS: Cannot get as he is not talking. OBJECTIVE: VITAL SIGNS: Afebrile. Vital signs are noted per the chart record. GENERAL: No acute distress, slightly anxious, restless in bed. HEENT: Normocephalic, atraumatic. NECK: Supple. Trachea midline. LUNGS: Bilateral air entry, few rhonchi. CARDIOVASCULAR: S1 and S2. No murmurs, rubs, or gallops. ABDOMEN: Soft, nontender. EXTREMITIES: No clubbing or cyanosis, there is 1+ pretibial edema, 3+ foot edema. INTEGUMENT: No rash, mild stasis changes. LABS: Today's labs are pending. IMPRESSION AND PLAN: 1. Acute respiratory failure, on ventilator. 2. Chronic respiratory failure, status post tracheostomy. 3. Morbid obesity. 4. Acute renal failure. 5. Acute on chronic liver failure, much better and now back to chronic state. 6. Chronic alcoholism. 7. Ischemic right hand digit due to vasopressor use and other conditions. 8. Pain, agitation. Continue intubated state via tracheostomy. Ventilator support. Continue weaning per protocol. Tolerate the airway and bronchial hygiene measures. Continue the tube feeds to maximize nutrition status. Follow up the fever curve, but it is better recently. Continue medicines for comfort. He needs a lot of restorative care given his difficulty in handling him due to body size issues. MD AR Duffy/JOSIE /[id number]
[2018-09-22] MEDS: FLUCONAZOLE 400MG/200ML BAG 200 ML IV SCH (13:34)
[2018-09-22] MEDS: METHYLPREDNISOLONE SOD SUCC 40 MG/ML VIAL 1ML IV SCH ×2 (13:34→22:59)
[2018-09-22] MEDS: MEROPENEM 500MG 500 MG in SODIUM CHLORIDE 0.9% 50ML 50 ML IV SCH (13:34)
[2018-09-22] MEDS: SERTRALINE HCL 50 MG TAB PEG SCH (13:34)
[2018-09-22] MEDS: MULTIVITAMINS/MINERALS TAB PO SCH (13:34)
[2018-09-22] MEDS: PANTOPRAZOLE 40 MG 10ML VIAL IV SCH (13:34)
--- NOTE | 2018-09-22 15:35 | NUR ---
DC PLAN: NOTIFIED BY OLIVA CAZARES PT WAS ACCEPTED TO [facility], BUT THE FAMILY IS APPEALING FOR THE PT TO BE APPROVED AT THE [facility] LOCATION FOR CONTINUUM OF CARE. WILL AWAIT DETERMINATION.
--- NOTE | 2018-09-22 15:41 | NUR ---
WOUND CARE CONSULTATION - Follow Up - Pt in bed, Family at bedside. - Alternating Pressure Air Mattress in use. - Julio Cesar Score 10 - Bilateral Heel Protectors in Use/ Offloading Heels with Pillows. PATIENT VISIT: - Right Hand Edema +2,2nd -5th Digits Stable Eschar- Healing. No Drainage, Painful to touch. Gouty Swelling/ Fluid Filled at joints. - Sacral Area -Stable. No Change. No Pressure Ulcers. Small Hematoma to Left Gluteal 1x1 cm protruding <1 cm. - Bilateral heels- pink & dry, scaly, no pressure ulcers identified. - Skin Tear Left Posterior Calf. - HEALING - Right Foot 1st Met Head- Gout/ Fluid Filled Joint Space. RECOMMENDATION: Continue Current Treatment Plan: 1. Perirectal & Bilateral Gluteal Areas- - Wash area with mild soap and water then pat dry thoroughly. - Apply Lantiseptic Cream TID and PRN Soiling. 2. Right Hand Ischemic Ulcers - Curran with Betadine and Leave Open To Air. 3. Continue Alternating Pressure Air Mattress 4. Turn and Reposition q2h. 5. Offload Heels with pillows while in bed. 6. Left Calf Skin Tear - - Cleanse wound with NS and 4x4 gauze. Pat Dry Thoroughly. - Apply Xeroform Single Layer and Cover with Allevyn "Heel" foam dressing daily. 7. Keep Right Hand Elevated to reduce Swelling. Addendum: 09/22/18 at 1549 by Enrike Ca RN Amended: Links added.
--- NOTE | 2018-09-22 15:48 | NUR ---
NOTIFIED BY KIRSTEN THE PT HAS BEEN DENIED FOR [facility]. THE AND SISTER IN LAW WILL BE ESCALATING THEIR REQUEST W THE INSURANCE COMPANY; JORGE.
[2018-09-22] MEDS: VANCOMYCIN 1GM/NS 250 ML 250 ML IV SCH (15:56)
[2018-09-22] MEDS: EPOETIN ALFA 10000 UNIT/ML VIAL SC SCH (16:32)
[2018-09-22] MEDS: DIPHENHYDRAMINE HCL 25 MG CAP PO SCH (22:59)
[2018-09-23] VITALS (18 sets, daily range): BP systolic 86–161; BP diastolic 76–96
[2018-09-23] MEDS: INSULIN REGULAR, HUMAN 100 UNIT/1 ML 3ML VIAL SQ SCH ×4 (01:10→18:47)
[2018-09-23] MEDS: FENTANYL CITRATE INJ 2,000 MCG in SODIUM CHLORIDE 0.9% 250ML 210 ML IV PRN ×2 (01:18→12:00)
[2018-09-23 05:24] LABS: BASOPHILS % 0.3 % (0.0-1.0); HEMOGLOBIN 8.2 g/dL (14.0-18.0); LYMPHOCYTES # (AUTO) 0.8 (1.0-3.2); LYMPHOCYTES % 5.5 % (18.0-39.1); MEAN CORPUSCULAR HEMOGLOBIN 31.5 pg (28-32); MEAN CORPUSCULAR HGB CONC 31.5 g/dL (31-35); NEUTROPHILS # (AUTO) 11.4 (2.1-6.9); NEUTROPHILS % 83.3 % (38.7-80.0); PLATELET COUNT 232 x10e3/uL (140-360); RED CELL DISTRIBUTION WIDTH 15.3 % (11.7-14.4)
[2018-09-23 05:49] LABS: ANION GAP 16.9 mmol/L (8-16); CALCIUM 8.3 mg/dL (8.4-10.2); CREATININE, SERUM 1.64 mg/dL (0.72-1.25); POTASSIUM 3.9 mmol/L (3.5-5.1)
[2018-09-23 09:27] LABS: LYMPHOCYTES % (MANUAL) 10 % (19-48); MONOCYTES % (MANUAL) 7 % (3.4-9.0); NEUTROPHILS % (MANUAL) 83 % (40-74); PLATELET ESTIMATE ADEQUATE; PLATELET MORPHOLOGY COMMENT NORMAL; RBC MORPHOLOGY COMMENT NORMAL
[2018-09-23] MEDS: MULTIVITAMINS/MINERALS TAB PO SCH (09:43)
[2018-09-23] MEDS: METHYLPREDNISOLONE SOD SUCC 40 MG/ML VIAL 1ML IV SCH ×2 (09:43→23:13)
[2018-09-23] MEDS: LANOLIN 4.5 OZ OINT TP SCH ×3 (09:43→22:26)
[2018-09-23] MEDS: BALSAM PERU/CASTOR OIL 60 GM OINT...G. TP SCH (09:43)
[2018-09-23] MEDS: PANTOPRAZOLE 40 MG 10ML VIAL IV SCH (09:43)
[2018-09-23] MEDS: SERTRALINE HCL 50 MG TAB PEG SCH (09:43)
--- NOTE | 2018-09-23 14:53 | Progress Note ---
DATE: 09/23/2018 Pulmonary Progress Note SUBJECTIVE: The patient was on a spontaneous breathing trial this morning and did well for a while. He was then switched back to SIMV. He is now sitting up with physical therapy. He remains on enteral feedings as well as some fentanyl. OBJECTIVE: VITAL SIGNS: The patient is afebrile. The blood pressure is 161/85 and pulse is 80. T-max is 100.1. HEENT: Shows a tracheostomy in good position. CARDIAC: Reveals a regular rate and rhythm with a normal S1 and S2. LUNGS: Auscultation of lungs showed decreased breath sounds at the bases. There is no wheezing. ABDOMEN: Soft and nontender. There is no rebound or guarding. EXTREMITIES: Shows 1 to 2+ leg edema. LABORATORY DATA: White blood cell count is 13.7 and hemoglobin is 8.2. Platelet count is 232. The BUN to creatinine ratio is 76 to 1.64. The other electrolytes are within normal limits. IMPRESSION: 1. Acute respiratory failure. 2. Obesity hypoventilation syndrome. 3. Morbid obesity. 4. Byzrm-bh-jqozagd renal insufficiency. 5. Serratia pneumonia. PLAN: 1. Continue current antibiotics. 2. Continue to wean the patient as tolerated. Consider trach collar trials tomorrow. 3. Continue enteral feedings. 4. Continue to monitor electrolytes and blood counts. Phong Sharp MD [facility]/JOSIE /[id number]
--- NOTE | 2018-09-23 18:38 | Progress Note ---
DATE: 09/23/2018 Internal Medicine Progress Note SUBJECTIVE: Patient is still on the ventilator, on the weaning process. PHYSICAL EXAMINATION: VITAL SIGNS: Blood pressure 161/85, temperature 100.1, heart rate 66 per minute, respiratory rate 16 per minute, oxygen saturation 100%. HEART: Showed regular rhythm. No murmur or added sound. LUNGS: Decreased breath sounds bilaterally. ABDOMEN: Soft. PEG tube in place. LABORATORY DATA: On BMP, sodium 140, potassium 3.9, chloride 103, CO2 24, BUN 76, creatinine 1.64, glucose 161. On the CBC, white blood count 13,800, hemoglobin 8.2, hematocrit 26.0, platelet count 232,000. PT 13.9, INR 0.9, APTT 40.6, AST 104, ALT 49, total bilirubin 1.4, and alkaline phosphatase 679. IMPRESSION: 1. Acute respiratory failure, status post tracheostomy, still on the ventilator. 2. Elevated LFTs secondary to probably fatty liver. 3. Anemia of chronic disease. 4. Acute renal failure. 5. Morbid obesity. 6. Dysphagia. PLAN OF TREATMENT: Continue dialysis. Continue ventilator support. Wean off the ventilator as tolerated. Continue one application daily. Monitor blood sugar q.6 hours. Continue multivitamin one tablet daily. Ergocalciferol 50,000 units once a week. Lanolin three times a day topically, for hyperglycemia. Epogen 3000 units on Tuesday, Tuesday, Tuesday for anemia of chronic disease. Naloxone 0.4 mg as needed for excessive sedation. Artificial Tears q.4 hours as needed, Protonix 40 mg daily, Solu-Medrol 20 mg IV twice a day, heparin 300 units once, prednisone 650 q.4 hours as needed. Monitor as needed. Sertraline 25 mg daily. I discussed the case with the family at the bedside. Labs have been reviewed. Medication list has been reviewed. TIME SPENT: Around 55 minutes. MD NGUYỄN Arana/MODL /[id number]
[2018-09-24] VITALS (23 sets, daily range): BP systolic 103–154; BP diastolic 58–91
[2018-09-24] MEDS: INSULIN REGULAR, HUMAN 100 UNIT/1 ML 3ML VIAL SQ SCH ×4 (00:34→18:00)
[2018-09-24 05:15] LABS: BASOPHILS % 0.2 % (0.0-1.0); HEMATOCRIT 26.7 % (38.2-49.6); HEMOGLOBIN 8.4 g/dL (14.0-18.0); LYMPHOCYTES # (AUTO) 1.8 (1.0-3.2); LYMPHOCYTES % 9.5 % (18.0-39.1); MEAN CORPUSCULAR HEMOGLOBIN 31.6 pg (28-32); MEAN CORPUSCULAR HGB CONC 31.5 g/dL (31-35); MEAN CORPUSCULAR VOLUME 100.4 fL (81-99); MONOCYTES # (AUTO) 1.6 (0.2-0.8); MONOCYTES % 8.4 % (4.4-11.3); NEUTROPHILS # (AUTO) 15.2 (2.1-6.9); PLATELET COUNT 277 x10e3/uL (140-360); RED BLOOD COUNT 2.66 x10e6/uL (4.3-5.7); RED CELL DISTRIBUTION WIDTH 15.4 % (11.7-14.4)
[2018-09-24 05:45] LABS: ALBUMIN 2.1 g/dL (3.5-5.0); ALBUMIN/GLOBULIN RATIO 0.4 (0.8-2.0); ANION GAP 17.7 mmol/L (8-16); CALCIUM 7.9 mg/dL (8.4-10.2); CREATININE, SERUM 1.62 mg/dL (0.72-1.25); POTASSIUM 3.7 mmol/L (3.5-5.1)
--- NOTE | 2018-09-24 06:49 | Diagnostic Imaging Report ---
EXAMINATION: CHEST SINGLE (PORTABLE) COMPARISON: Chest x-ray 09/18/2018 INDICATION: ^Resp Failure ^[id number] ^[id number] DISCUSSION: Frontal view of the chest obtained at 0620 hours. Left costophrenic angle not included on the image. HEART AND MEDIASTINUM: Stable mild cardiomegaly. Central vascular congestion. LINES: Tracheostomy is midline. Dual lumen central venous catheter terminates in the SVC. LUNGS: Stable low lung volumes. No pneumonia or pulmonary edema. PLEURA: No pleural effusion or pneumothorax. BONES AND SOFT TISSUES: No focal osseous lesion. The soft tissues are normal. IMPRESSION: Cardiomegaly and vascular congestion. No confluent infiltrates given the limitations of this exam. Signed by: Dr. Phoebe Arreola MD on 09/24/2018 6:45 AM
[2018-09-24 09:03] LABS: BAND NEUTROPHILS % (MANUAL) 1 %; LYMPHOCYTES % (MANUAL) 9 % (19-48); MONOCYTES % (MANUAL) 13 % (3.4-9.0); NEUTROPHILS % (MANUAL) 77 % (40-74); PLATELET ESTIMATE ADEQUATE; PLATELET MORPHOLOGY COMMENT NORMAL; RBC MORPHOLOGY COMMENT NORMAL
[2018-09-24] MEDS: METHYLPREDNISOLONE SOD SUCC 40 MG/ML VIAL 1ML IV SCH ×2 (09:33→20:40)
[2018-09-24] MEDS: BALSAM PERU/CASTOR OIL 60 GM OINT...G. TP SCH (09:33)
[2018-09-24] MEDS: LANOLIN 4.5 OZ OINT TP SCH ×3 (09:33→21:00)
[2018-09-24] MEDS: SERTRALINE HCL 50 MG TAB PEG SCH (09:33)
[2018-09-24] MEDS: PANTOPRAZOLE 40 MG 10ML VIAL IV SCH (09:33)
[2018-09-24] MEDS: MULTIVITAMINS/MINERALS TAB PO SCH (09:33)
--- NOTE | 2018-09-24 11:07 | Progress Note ---
DATE: 09/24/2018 Pulmonary Critical Care Progress Note I am covering for Dr. Lopez today. SUBJECTIVE: The patient is placed on trach collar today. He is tolerating it well for about 15 minutes. His fentanyl has been weaned. OBJECTIVE: VITAL SIGNS: The blood pressure is 103/74 and the oxygen saturation is 100%. T-max is 101.9. HEENT: Shows no facial swelling or erythema. There is a subclavian dialysis catheter in place. CARDIAC: Reveals a regular rate and rhythm with normal S1 and S2. There are no murmurs or rubs heard. LUNGS: Auscultation of lungs reveals clear breath sounds bilaterally. There is no wheezing. ABDOMEN: Soft and nontender. There is no rebound or guarding. EXTREMITIES: Show no leg edema or calf tenderness. LABORATORY DATA: White blood cell count is 19.5 and the hemoglobin is 8.4. The platelet count is 277. The BUN to creatinine ratio is 100 to 1.62 and the other electrolytes are within normal limits. The ALT is 133 and the AST is 131. The alkaline phosphatase is 300. RADIOGRAPHIC DATA: Chest x-ray shows some cardiomegaly and vascular congestion. IMPRESSION: 1. Acute on chronic respiratory failure. 2. Obesity hypoventilation syndrome. 3. Serratia pneumonia. 4. Recurrent fever and leukocytosis. 5. Morbid obesity. PLAN: 1. Continue trach collar trials as tolerated. 2. Re-culture the patient and discuss IV antibiotics with Infectious Disease. 3. Continue enteral feedings. Phong Sharp MD [facility]/MODL /[id number]
--- NOTE | 2018-09-24 15:11 | NUR ---
Bedside report from Jaya Medina RN.
--- NOTE | 2018-09-24 15:23 | Progress Note ---
DATE: 09/24/2018 Internal Medicine Progress Note SUBJECTIVE: The patient is on a trach collar, tolerating it pretty well with an oxygen saturation of 100%. OBJECTIVE: VITAL SIGNS: Blood pressure is 103/74, temperature 101.9, heart rate 83 per minute, respiratory rate is 15 per minute, oxygen saturation 100%. HEART: Showed regular rhythm. No murmur or added sound. LUNGS: Clear bilaterally. ABDOMEN: Soft. PEG tube in place. EXTREMITIES: Show no evidence of cyanosis, edema, or trauma. LABORATORY DATA: On the blood work, BMP; sodium 143, potassium 3.7, chloride 105, CO2 of 24, BUN 100, creatinine 1.62, glucose 122. CBC; white count 19,400, hemoglobin 8.4, hematocrit 26.7, platelet count 277,000. PT 13.9, INR 0.98, PTT 40.6. AST 131, ALT 133, total bilirubin 1.3, alkaline phosphatase 670. FINAL IMPRESSION: 1. Acute respiratory failure, right now tolerating trach collar pretty well. 2. Acute renal failure, on dialysis. 3. Anemia of chronic disease. 4. Elevated liver function tests, which are slowly resolving. 5. Status post CPR, status post tracheostomy. 6. Morbid obesity. 7. Alcohol abuse. PLAN OF TREATMENT: Continue trach collar as much as tolerated. He is on the ventilator at nighttime. Continue vitamin D 50,000 international units once a week, Artificial Tears q.4 hours, Protonix 40 mg daily, Solu-Medrol 20 mg IV twice a day, Tylenol 650 mg q.4 hours as needed, Zoloft 25 mg daily, balsam cecelia and castor oil 60 g daily topically. Continue to monitor blood sugar q.6 hours. Continue multivitamin one tablet daily. Continue Epogen 10,000 units Tuesday, Tuesday, and Tuesday. The patient will remain on the trach collar. He is getting dialysis. Today, he has an elevated temperature. Infectious Disease, Dr. Farah is on the case for that. I want to order blood culture, urine culture. He is off the antibiotics right now. The insurance has approved the patient to go to [facility], but I want him to go to the [facility]. I will do the appeal to see if they can approve [facility]; if not, I can see the patient in [facility] . I discussed the case with the at the bedside. MD NGUYỄN Arana/JOSIE /[id number]
--- NOTE | 2018-09-24 17:38 | NUR ---
Patient bathed, gown and linens changed x 3 staff and assistance from patient . Condom catheter in place. Patient requesting water, oral care provided.
[2018-09-24] MEDS: ACETAMINOPHEN 325 MG/10 ML UDC NG PRN (20:40)
--- NOTE | 2018-09-24 22:26 | NUR ---
CALLED ATTENDING BREANNA,DR ROLAND PSYCH RN. SPOKE TO HIM REGARDING PATIENTs PAIN WHEN TURNING AND EVEN BATHING HIM. INFORMED HIM THAT HE HAS FENTANYL DRIP ORDERED PRN HOWEVER, HE IS NOT BEEN ON THIS DRIP FOR A FEW DAYS AND THAT HE DOES NOT NEED A CONTINUOUS DRIP. NEW ORDER FOR MORPHINE 4MG IV NOW AND MORPHINE 4MG IV Q3HR PRN FOR PAIN. ORDER READ BACK AND CONFIRMED
[2018-09-24] MEDS ORDERED: MORPHINE SULFATE 2 MG/ML SYR 1ML IV STA (22:28)
[2018-09-24] MEDS ORDERED: MORPHINE SULFATE 2 MG/ML SYR 1ML IV PRN (22:30)
[2018-09-24] MEDS ORDERED: MORPHINE SULFATE INJ 4 MG/ML INJ 1ML ONE (22:46)
[2018-09-25] VITALS (25 sets, daily range): BP systolic 105–162; BP diastolic 56–98
--- NOTE | 2018-09-25 00:24 | NUR ---
DR Luis ESCOBAR ROUNDED ON PATIENT. NEW ORDER PLACED
[2018-09-25] MEDS: INSULIN REGULAR, HUMAN 100 UNIT/1 ML 3ML VIAL SQ SCH ×5 (00:29→23:21)
[2018-09-25] MEDS: MORPHINE SULFATE INJ 4 MG/ML INJ 1ML IV PRN ×3 (01:00→23:22)
[2018-09-25] MEDS: ACETAMINOPHEN 325 MG/10 ML UDC NG PRN (03:53)
[2018-09-25 05:05] LABS: BASOPHILS % 0.2 % (0.0-1.0); LYMPHOCYTES # (AUTO) 1.2 (1.0-3.2); LYMPHOCYTES % 5.9 % (18.0-39.1); MEAN CORPUSCULAR HEMOGLOBIN 31.8 pg (28-32); MEAN CORPUSCULAR VOLUME 102.5 fL (81-99); MONOCYTES # (AUTO) 1.5 (0.2-0.8); NEUTROPHILS # (AUTO) 17.5 (2.1-6.9); NEUTROPHILS % 84.6 % (38.7-80.0); PLATELET COUNT 240 x10e3/uL (140-360); RED BLOOD COUNT 2.83 x10e6/uL (4.3-5.7)
--- NOTE | 2018-09-25 05:10 | NUR ---
PATIENT MONITOR SHOWING HIS CARDIAC LEADS WERE OFF, I WENT INTO PATIENTs ROOM TO PLACE THEM BACK TO CHEST WALL AND THEN I NOTICED THAT PATIENT HAD PULLED OUT HIS G-TUBE WITH BULB STILL INFLATED. PLACED A 18FR ROSARIO CATH UNDER STERILE PROCEDURE AND PATIENT TOLERATED WELL. INFORMED PAT CIVIL ENGINEERING DIRECTOR NURSE AND THEN SHE CALLED DR Luis ESCOBAR ANSWERING SERVICE AND HAD HIM PAGED. WILL CALL ATTENDING TO OBTAIN ORDER FOR THE RESTRAINTS
[2018-09-25 05:31] LABS: ALBUMIN 2.2 g/dL (3.5-5.0); ALBUMIN/GLOBULIN RATIO 0.5 (0.8-2.0); ANION GAP 16.2 mmol/L (8-16); CREATININE, SERUM 1.58 mg/dL (0.72-1.25); POTASSIUM 4.2 mmol/L (3.5-5.1)
--- NOTE | 2018-09-25 05:50 | NUR ---
CALLED AND INFORMED FEEDER OPERATOR MD FOR THIS PATIENT REGARDING THE NEED OF PLACING RESTRAINTS AND THE REASONS WHY AND INFORMED HIM THAT DR Luis ESCOBAR IS BEING NOTIFIED REGARDING PATIENT PULLING OUT HIS PEG TUBE. OBTAINED ORDER FOR THE NEED FOR RESTRAINTS. CONFIRMED AND READ BACK
--- NOTE | 2018-09-25 05:55 | NUR ---
Dr. Luis Sweeney returned call. Advised of pt pulling out PEG tube. Orders for consent for replacement.
--- NOTE | 2018-09-25 06:15 | NUR ---
Call to . Obtained consent for replacement PEG tube.
[2018-09-25] MEDS: DIPHENOXYLATE/ATROPINE TAB PO SCH ×2 (08:08→17:00)
[2018-09-25] MEDS: MULTIVITAMINS/MINERALS TAB PO SCH (08:08)
[2018-09-25] MEDS: SERTRALINE HCL 50 MG TAB PEG SCH (08:28)
[2018-09-25] MEDS: LANOLIN 4.5 OZ OINT TP SCH ×3 (08:28→22:02)
[2018-09-25] MEDS: METHYLPREDNISOLONE SOD SUCC 40 MG/ML VIAL 1ML IV SCH ×2 (08:33→23:20)
[2018-09-25] MEDS: PANTOPRAZOLE 40 MG 10ML VIAL IV SCH (08:33)
[2018-09-25] MEDS: BALSAM PERU/CASTOR OIL 60 GM OINT...G. TP SCH (08:34)
[2018-09-25 08:38] LABS: LYMPHOCYTES % (MANUAL) 6 % (19-48); MONOCYTES % (MANUAL) 8 % (3.4-9.0); NEUTROPHILS % (MANUAL) 86 % (40-74)
[2018-09-25 08:43] LABS: PLATELET MORPHOLOGY COMMENT FEW EDTA CLUMPING
[2018-09-25 08:44] LABS: PLATELET ESTIMATE SLIGHTLY INCREASED
[2018-09-25 08:47] LABS: RBC MORPHOLOGY COMMENT NORMAL
--- NOTE | 2018-09-25 09:53 | NUR ---
ST NOTE: Order for BSE acknowledged, unablae to perform, pt to have peg tube placed today. Handoff to CHILO Mendoza
--- NOTE | 2018-09-25 10:36 | NUR ---
CM SPOKE WITH OLIVA FROM [place] AND DR Jelani ESCOBAR REGARDING [facility] REFERRAL [facility]ORGE IS ASKING FOR PEER TO PEER WITH DR Jelani ESCOBAR TO JUSTIFY WHY PT NEEDS [facility] PHONE NUMBER GIVEN TO PT WHO SAYS HE WILL DR NAVA TO PEER TODAY CM TO FOLLOW
[2018-09-25] MEDS ORDERED: SODIUM CHLORIDE 0.9% 250ML 0 ML ONE (15:17)
[2018-09-25] MEDS ORDERED: SODIUM CHLORIDE 0.9% 500ML 500 ML ONE (15:18)
--- NOTE | 2018-09-25 15:35 | NUR ---
Nutrition Intervention Note (Follow up) RD Recommendation(s) for Physician: - Rec to restart continuous TF with Nepro @40mL/hr (1728kcal, 78g protein, and 700mL H2O) when PEG tube is replaced. - Check daily labs, weight, and gastric residual Plan of Care: RD following, monitoring for tolerance and adequacy Nutrition reason for involvement: Follow up RD Assessment (09/25) Pending placement. Stable condition. Pt with trach collar. Per RN Eriberto, pt appeared to be more confused today and pulled out his PEG tube. PEG tube will be replaced later today. Will continue to monitor and follow. (09/20) Pt was discussed during AM rounds. HD today. Per RN Ninoska, pt had copious amount of secretion from trach. Pt had ~450+ mL gastric residual. TF was on hold. RD spoke with RN and rec to hold TF and obtain CT abd/pel as pt was tolerating TF well in the past. Will continue to monitor and follow. (09/14) Pt was status post tracheostomy on 09/12. Possible PEG tube placement tomorrow.TF was on hold for procedure. Communicated TF rec to CHILO Castorena. Will continue to monitor and follow. (09/11) Pt was discussed during AM rounds. Pt remained intubated and on vent. 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 Levophed and TPN were discontinued. Possible trach placement tomorrow. Per RN, Nepro was well tolerated at 40mL/hr without any gastric residual. Communicated TF goal with RN. Will continue to monitor and follow. (09/07) Pt was discussed during AM rounds. Pt remained orally intubated and on vent. Pt received daily HD. Last HD on 09/06 removed 2.1 L fluids. Levophed at 8 mcg per minute. TPN at 60mL/hr. Per RN, TPN will be increased up to 80mL/hr tonight. Reviewed labs. Kidney function has slightly improved. No sign of refeeding syndrome at this time. Will continue to monitor and follow. (09/04) Pt was discussed during AM rounds. Pt remained orally intubated and on vent. Possible trach placement. Pt was receiving HD this afternoon. Per RN, pt tolerated TF of Nepro @40mL/hr but had liquid stool. Rectal tube was present. Visited pt in the room. IVF @30mL/hr, Levophed @10mcg/min, and Fentanyl @ 25mcg/hr. Spoke with Dr. Sweeney on the phone regarding high risk of ischemia bowel or ileus with current TF order. RD rec to trickle feed with Vital HP @10mL/hr OR to initiate standard TPN @40mL/hr to meet nutrition goals. Dr. Sweeney was agreeable with TPN initiation. Order will be placed tomorrow before pharmacy cut-off time at 1500. Will continue to monitor and follow. (08/31) Pt with a change of condition. Pt Coded and was orally intubated and sedated now with a poor prognosis. Wt changes noted and RD is following. (08/24) Chart reviewed. Labs and meds reviewed. 53yo M, who is admitted for chest pain and LE cellulitis. Pt was discussed during AM rounds. Per RN, pt has no urine output with decreased kidney function. Negative cardiac markers. No hx of DM. Visited pt in the room. Pt reports eating very little in the last 2 years. UBW ~410lbs. No weight loss noted. Pt denies any nausea or vomiting at this time. LBM 08/23. Pt denies any chewing or swallowing issue. Pt quit drinking alcohol about 2 weeks ago. Prior to that, pt usually drinks 1 pint of vodka and 2-3 beer a day. Pt refused diet education. Will continue to monitor and follow. Principal Problems/Diagnoses: 1. Fever. 2. Respiratory failure. 3. Status post cardiac arrest. 4. Shock. 5. Acute renal injury, probably underlying chronic kidney disease. 6. Morbidly obese patient. 7. Liver disease, cirrhosis and alcoholism. PMH: no H&Pin chart GI: abdomen soft, non-tender, large, round, liquid brown stool 09/25 Skin: no pressure wound noted per wound care note on 09/22 Labs: (09/25) Na 146 H, BUN 106 H, creatinine 1.58 H, Ca 8.0 L (09/20) BUN 71 H, creatinine 3.95 H, glucose 145 H, phosphorus 7.3 H (09/13) BUN 54 H, Creatinine 4.59 H, Glucose 122 H (09/11) BUN 67 H, Creatinine 5.65 H, phos 5.5 H, Mg 2.9 H (09/07) BUN 28 H, Creatinine 3.33 H, Ca 8.3 L, Glucose 132 H (09/04) BUN 37 H, Creatinine 5.22 H, glucose 139 H, Mg 2.4 H Meds: solu-medrol, protonix Ht: 76in Wt: 392lb 08/31, 401lb 09/11, 393lb 09/14; 418lb; 374lb (Weight fluctuates with HD) BMI: 53.2kg/m2 IBW: 202lb Malnutrition Evaluation (09/14) The patient does not meet criteria for a specified degree of malnutrition at this time. Will re-evaluate at follow-up as appropriate. Nutrition Prescription (Diet Order): Nepro @40ml/hr TF on hold Estimated Nutritional Needs: Calories: 2023 - 2300kcal (22-25kcal/kg/d) Weight used: IBW Protein: 110 - 138g (1.2 1.5g/kg) Weight used: IBW Diet Adequacy: Not meeting needs TF on hold Diet Education Needs Assessment: Diet education no indicated. Nutrition Care Level: low Nutrition Diagnosis: Inadequate energy intake related to current medical status as evidenced by EN is required as main source of nutrition. Goal: Patient will meet 75-100% of estimated needs by follow up Progress: N/A Interventions: Composition, Rate, IVF Monitoring/Evaluation: Total energy intake, Total protein intake, Formula/Solution, IVF, Weight change Signed: Jenna Roland MS, RD, LD
[2018-09-25] MEDS ORDERED: CEFAZOLIN SOD 1 GM/NS 50ML 50 ML IV ONE (15:45)
--- NOTE | 2018-09-25 16:00 | NUR ---
Dr. Allison Sweeney completed PEG insertion and tolerated well. Verbal order received to not use PEG for tube feedings for 24 hours (due on 09/26/18 at 16:00) and ok to use PEG tube for meds only in 8 hours (due at 0:00 on 09/26/18).
[2018-09-25] MEDS ORDERED: MEROPENEM 500MG/ NS 50ML 50 ML IV SCH (17:00)
[2018-09-25] MEDS ORDERED: LIDOCAINE HCL 2% LOCAL INJ 5 ML SDV VIAL INJ ONE (18:07)
[2018-09-25] MEDS ORDERED: PROPOFOL IV EMULSION 10 MG/ML 50 ML VIAL ONE (18:07)
--- NOTE | 2018-09-25 19:00 | Progress Note ---
DATE: 09/25/2018 Pulmonary Progress Note SUBJECTIVE: The patient tolerated trach collar again for 6 hours today. His PEG came out and had to be replaced by GI. OBJECTIVE: VITAL SIGNS: The T-max is 99.4. NECK: Trach site is eroded and there is a small amount of drainage. CARDIAC: Reveals a regular rate and rhythm with a normal S1 and S2. LUNGS: Auscultation of the lungs reveals crackles in both lung patel. ABDOMEN: Soft and nontender. There is a feeding tube in place. EXTREMITIES: There is no leg edema or calf tenderness. There is no cyanosis or clubbing. SKIN: Shows no rashes. NEUROLOGIC: Shows the patient to be diffusely weak. LABORATORY DATA: White blood cell count is 20.7 and the hemoglobin is 9. The platelet count is 240. The BUN to creatinine ratio is 106 to 1.58 and sodium is 146. The other electrolytes are within normal limits. The AST is 174 and the ALT is 193. RADIOGRAPHIC DATA: Chest x-ray shows some cardiomegaly. IMPRESSION: 1. Acute on chronic respiratory failure. 2. Leukocytosis and low-grade fever. 3. Obesity hypoventilation syndrome. 4. Morbid obesity. 5. Protein-calorie malnutrition. PLAN: 1. Discuss elevated white blood cell count and fevers with ID. 2. Continue trach collar trials. 3. Continue enteral feedings. 4. Monitor electrolytes, BUN, and creatinine. Phong Sharp MD [facility] /[id number]
[2018-09-25] MEDS ORDERED: HEPARIN SOD (PORCINE) 1000 UNIT/ML 10ML MDV IV PRN (21:30)
[2018-09-25] MEDS ORDERED: HEPARIN SOD (PORCINE) 5,000 UNIT/ML VIAL ONE (21:33)
[2018-09-25] MEDS ORDERED: HEPARIN SOD (PORCINE) 1000 UNIT/ML SDV ONE (21:34)
--- NOTE | 2018-09-25 22:02 | NUR ---
PATIENTs CONTINUING TO RECEIVE DIALYSIS. PATIENTs 2100 AND 2200 MEDS TO BE GIVEN ONCE TREATMENT IS COMPLETE. PATIENT MOUTHING TO ME THAT HE HURTS, WHEN ASKING HIM ABOUT THE PAIN AND NARROWING IT DOWN TO THE ABDOMEN AREA HE MOVED HIS HEAD UP AND DOWN MEANING A YES TO ABDOMEN PAIN. INFORMED HIM THAT ONCE TREATMENT IS OVER THEN I CAN GIVE HIM SOMETHING FOR HIS DISCOMFORT. I HAVE NOTICED THAT PATIENTs BODY MOVEMENTS SUCH HIM ROCKING HIS LEGS IN A JERKING MOTION AND FACIAL TWITCHING AND USING MOUTH SOUNDS LIKE HE IS SUMMING ME BUT HE HAS NO REASON WHY HE IS DOING THAT, IT ALL MAY BE RELATED TO HIS DISCOMFORT. HOWEVER, I WILL CONTINUE TO MONITOR HIM WITH THESE UNUSUAL MOVEMENTS
--- NOTE | 2018-09-25 23:16 | Operative Report ---
DATE OF PROCEDURE: 09/25/2018 SURGEON: John Sweeney MD PROCEDURE: An esophagogastroduodenoscopy and PEG tube replacement. MEDICATION: The patient was done under general endotracheal anesthesia. PROCEDURE IN DETAIL: With the patient in a supine position and after adequate induction of general endotracheal anesthesia, the flexible fiberoptic Olympus gastroscope was introduced into the esophagus under direct visualization without any difficulty. There was some patchy erythema noted in the distal esophagus. The scope was then advanced with ease into the stomach and mucosa overlying the antrum and the body revealed some patchy areas of erythema. The PEG tube replacement was carried out through the old G-tube stoma. However, the intragastric exit site was at a different location. The scope was subsequently withdrawn after documenting a good positioning of the intragastric bumper. The patient tolerated procedure well. IMPRESSION: 1. Distal esophagitis. 2. Gastritis. 3. PEG tube replacement carried out through the old tube's stoma, but a different intragastric exit site. The patient tolerated procedure well. PEG tube to drain to gravity x24 hours in a Mcfadden bag, then can use. John Sweeney MD [facility] [place] /[id number] cc: Min Sweeney MD
[2018-09-25] MEDS: MEROPENEM 500MG/ NS 50ML 50 ML IV SCH (23:21)
[2018-09-26] VITALS (38 sets, daily range): BP systolic 86–138; BP diastolic 43–98
[2018-09-26] MEDS: MORPHINE SULFATE INJ 4 MG/ML INJ 1ML IV PRN (04:14)
--- NOTE | 2018-09-26 04:37 | NUR ---
DR Luis ESCOBAR ROUNDED ON PATIENT AROUND 0130 AND VERBALLY HAD GIVEN ME ORDERS TO INCREASE LOMOTIL TO 2TABS BID AND GET A CBC AND CMP FOR THIS MORNING. ORDERS READ BACK AND CONFIRMED
[2018-09-26] MEDS ORDERED: DIPHENOXYLATE/ATROPINE TAB PO PRN (04:45)
[2018-09-26] MEDS: FENTANYL CITRATE INJ 2,000 MCG in SODIUM CHLORIDE 0.9% 250ML 210 ML IV PRN (05:00)
[2018-09-26 05:08] LABS: BASOPHILS % 0.2 % (0.0-1.0); EOSINOPHILS # (AUTO) 0.1 (0.0-0.4); EOSINOPHILS % 0.4 % (0.0-6.0); HEMATOCRIT 27.9 % (38.2-49.6); HEMOGLOBIN 8.6 g/dL (14.0-18.0); LYMPHOCYTES # (AUTO) 1.4 (1.0-3.2); LYMPHOCYTES % 5.5 % (18.0-39.1); MEAN CORPUSCULAR HEMOGLOBIN 32.2 pg (28-32); MEAN CORPUSCULAR HGB CONC 30.8 g/dL (31-35); MEAN CORPUSCULAR VOLUME 104.5 fL (81-99); MONOCYTES # (AUTO) 1.1 (0.2-0.8); MONOCYTES % 4.5 % (4.4-11.3); NEUTROPHILS # (AUTO) 21.8 (2.1-6.9); NEUTROPHILS % 86.5 % (38.7-80.0); PLATELET COUNT 235 x10e3/uL (140-360); RED BLOOD COUNT 2.67 x10e6/uL (4.3-5.7); RED CELL DISTRIBUTION WIDTH 16.1 % (11.7-14.4)
[2018-09-26 05:34] LABS: ALBUMIN 2.2 g/dL (3.5-5.0); ALBUMIN/GLOBULIN RATIO 0.5 (0.8-2.0); CALCIUM 8.2 mg/dL (8.4-10.2); CREATININE, SERUM 1.84 mg/dL (0.72-1.25)
[2018-09-26] MEDS: INSULIN REGULAR, HUMAN 100 UNIT/1 ML 3ML VIAL SQ SCH ×3 (05:55→18:00)
[2018-09-26] MEDS: METHYLPREDNISOLONE SOD SUCC 40 MG/ML VIAL 1ML IV SCH (08:59)
[2018-09-26] MEDS: PANTOPRAZOLE 40 MG 10ML VIAL IV SCH (08:59)
[2018-09-26] MEDS: SERTRALINE HCL 50 MG TAB PEG SCH (09:00)
[2018-09-26] MEDS: MULTIVITAMINS/MINERALS TAB PO SCH (09:01)
[2018-09-26] MEDS: LANOLIN 4.5 OZ OINT TP SCH ×3 (09:02→21:50)
[2018-09-26] MEDS: BALSAM PERU/CASTOR OIL 60 GM OINT...G. TP SCH (09:03)
[2018-09-26] MEDS: ERGOCALCIFEROL 50,000 UNIT CAP PO SCH (09:06)
[2018-09-26 10:26] LABS: EOSINOPHILS % (MANUAL) 2 % (0-7); LYMPHOCYTES % (MANUAL) 4 % (19-48); MONOCYTES % (MANUAL) 4 % (3.4-9.0); MYELOCYTES % (MANUAL) 1 % (0-0); NEUTROPHILS % (MANUAL) 88 % (40-74); PROMYELOCYTES % (MANUAL) 1 % (0-0)
[2018-09-26 10:27] LABS: PLATELET ESTIMATE ADEQUATE; PLATELET MORPHOLOGY COMMENT FEW EDTA CLUMPING
--- NOTE | 2018-09-26 18:08 | NUR ---
WOUND CARE CONSULTATION - Consultation - Re: Tracheostomy Site - Pt in bed, Calm and cooperative. - Alternating Pressure Air Mattress in use. - Julio Cesar Score 10 - Bilateral Heel Protectors in Use/ Offloading Heels with Pillows. PATIENT VISIT: - Patient in bed. HOB 30 degrees. - ATC site assessed, noted large amounts of clear mucous secretion over T drain sponges. Not clear at this time if overmoisture is coming from expelling mucous through trach or around base of entry. Ulceration noted at base of trach site with large area of maceration. IMPRESSION: ATC site periwound compromised by Overmoisture. RECOMMENDATION: 1. ATC Site - Trach Care per protocol. - Apply Allevyn Foam Dressing instead of T Drain Sponge- over Base of tracheostomy and change Daily and PRN Strikethrough. Addendum: 09/26/18 at 1823 by Enrike Ca RN Amended: Links added.
[2018-09-26] MEDS ORDERED: MIDAZOLAM HCL 2 MG/2 ML VIAL ONE (18:27)
[2018-09-26] MEDS ORDERED: KETAMINE HCL INJ 50 MG/ML 10 ML VIAL ONE (18:27)
--- NOTE | 2018-09-26 18:42 | Progress Note ---
DATE: 09/26/2018 SUBJECTIVE: The patient's white blood cell count is increased to 25. Infectious Disease switched the patient to meropenem. The patient remains on a trach collar and has been on trach collar all day today. PHYSICAL EXAMINATION: VITAL SIGNS: The blood pressure is 126/63 and saturation is 100% on a trach collar. HEENT: Shows no facial swelling or erythema. The trach site is clean. There is no drainage. CARDIAC: Reveals regular rate and rhythm with normal S1 and S2. There are no murmurs or rubs LUNGS: Auscultation of lungs shows decreased breath sounds at the bases. There is no wheezing. ABDOMEN: Soft and nontender. There is a feeding tube in place. EXTREMITIES: There is some mild leg edema. There are no focal neurological abnormalities. RADIOGRAPHIC DATA: Chest x-ray on the 3rd showed cardiomegaly and some mild vascular congestion. IMPRESSION: 1. Acute on chronic respiratory failure. 2. Leukocytosis and low-grade fever. 3. Obesity hypoventilation syndrome. 4. Chronic renal failure, stage III. 5. Morbid obesity. 6. Protein-calorie malnutrition. PLAN: 1. Continue Merrem and await further blood cultures. 2. Leave the patient on trach collar as tolerated. 3. If the patient is able to tolerate trach collar for 24-48 hours, consider downsizing the trach in order to have a Passy [place] valve. Phong Sharp MD [facility] /[id number]
[2018-09-26] MEDS: MEROPENEM 500MG/ NS 50ML 50 ML IV SCH (22:55)
[2018-09-27] VITALS (30 sets, daily range): BP systolic 94–140; BP diastolic 41–74
[2018-09-27] MEDS: INSULIN REGULAR, HUMAN 100 UNIT/1 ML 3ML VIAL SQ SCH ×4 (00:15→17:58)
[2018-09-27 05:09] LABS: BASOPHILS % 0.1 % (0.0-1.0); EOSINOPHILS % 0.1 % (0.0-6.0); HEMATOCRIT 29.6 % (38.2-49.6); LYMPHOCYTES # (AUTO) 1.5 (1.0-3.2); LYMPHOCYTES % 6.9 % (18.0-39.1); MEAN CORPUSCULAR HEMOGLOBIN 31.6 pg (28-32); MEAN CORPUSCULAR HGB CONC 30.4 g/dL (31-35); MEAN CORPUSCULAR VOLUME 103.9 fL (81-99); MONOCYTES # (AUTO) 1.3 (0.2-0.8); MONOCYTES % 5.6 % (4.4-11.3); NEUTROPHILS # (AUTO) 19.2 (2.1-6.9); NEUTROPHILS % 85.8 % (38.7-80.0); PLATELET COUNT 226 x10e3/uL (140-360); RED BLOOD COUNT 2.85 x10e6/uL (4.3-5.7); RED CELL DISTRIBUTION WIDTH 15.5 % (11.7-14.4)
[2018-09-27 05:39] LABS: ALBUMIN 2.1 g/dL (3.5-5.0); ALBUMIN/GLOBULIN RATIO 0.4 (0.8-2.0); ANION GAP 16.6 mmol/L (8-16); CALCIUM 8.6 mg/dL (8.4-10.2); CREATININE, SERUM 1.92 mg/dL (0.72-1.25); MAGNESIUM 1.4 MG/DL (1.3-2.1); PHOSPHORUS 5.5 MG/DL (2.3-4.7); POTASSIUM 3.6 mmol/L (3.5-5.1)
[2018-09-27 07:27] LABS: BAND NEUTROPHILS % (MANUAL) 1 %; LYMPHOCYTES % (MANUAL) 6 % (19-48); MONOCYTES % (MANUAL) 4 % (3.4-9.0); NEUTROPHILS % (MANUAL) 87 % (40-74)
[2018-09-27 07:28] LABS: PLATELET ESTIMATE SLIGHTLY INCREASED
[2018-09-27 07:29] LABS: PLATELET MORPHOLOGY COMMENT MOD EDTA CLUMPING
[2018-09-27 07:30] LABS: RBC MORPHOLOGY COMMENT ABNORMAL
[2018-09-27] MEDS: DIPHENOXYLATE/ATROPINE TAB PEG SCH ×2 (08:48→17:19)
[2018-09-27] MEDS: MULTIVITAMINS/MINERALS TAB PO SCH (08:48)
[2018-09-27] MEDS: SERTRALINE HCL 50 MG TAB PEG SCH (08:48)
[2018-09-27] MEDS: BALSAM PERU/CASTOR OIL 60 GM OINT...G. TP SCH (08:48)
[2018-09-27] MEDS: LANOLIN 4.5 OZ OINT TP SCH ×3 (08:48→20:25)
[2018-09-27] MEDS: PANTOPRAZOLE 40 MG 10ML VIAL IV SCH (08:48)
--- NOTE | 2018-09-27 15:34 | NUR ---
Dr Rahat Sharp to bedside. assistant boys track coach to bedside. Patient to transfer to [facility] after dialysis.
--- NOTE | 2018-09-27 15:46 | NUR ---
REC'D CALL TODAY FROM OLIVA WITH [facility] PT IS ACCEPTED TO [address] CALL REPORT TO [phone] ROOM 105 PT'S IN ROOM AND SIGNED CONSENTS PT TO DC TODAY AFTER DIALYSIS NURSE SURY CALLING FOR DC ORDERS MOT INITIATED AND ON CHART
--- NOTE | 2018-09-27 18:31 | Progress Note ---
DATE: 09/27/2018 Pulmonary Critical Care Progress Note SUBJECTIVE: The patient is on trach collar and has been on trach collar overnight. He has no headache or fevers. He is not complaining of chest pain. PHYSICAL EXAMINATION: VITAL SIGNS: The patient is afebrile. The blood pressure is 122/63 and the saturation is 99%. The pulse is 95. HEENT: Shows no facial swelling or erythema. The nasal mucosa is normal. The trach site looks clean. There is no drainage. CARDIAC: Reveals regular rate and rhythm with a normal S1 and S2. There are no murmurs or rubs. LUNGS: Auscultation of lungs reveals clear breath sounds bilaterally. There is no wheezing. ABDOMEN: Soft, nontender. There is no rebound or guarding. EXTREMITIES: No leg edema or calf tenderness. IMPRESSION: 1. Acute on chronic respiratory failure. 2. Obesity hypoventilation syndrome. 3. Chronic renal failure. 4. Morbid obesity. 5. Protein-calorie malnutrition. PLAN: 1. The patient is scheduled to go to [facility]. 2. Continue trach collar trials. 3. Continue dialysis as needed. Phong Sharp MD [facility] /[id number]
[2018-09-27] MEDS ORDERED: HEPARIN SOD (PORCINE) 1000 UNIT/ML SDV ONE (18:41)
--- NOTE | 2018-09-27 19:00 | NUR ---
Bedside report received from Kell Stewart RN. Pt received resting in bed receiving HD, no signs of distress noted, pt reports no pain at rest but reports discomfort when he is touched or moved. No family present at the bedside at this time. Care plan reviewed. Pt on rotational mattress with pillow to head/neck. Pt is turning head left to right back and forth, instructed him to try not to do this during HD and he nodded his head yes.
--- NOTE | 2018-09-27 19:50 | NUR ---
Pts is now present at the bedside. HD is complete, HD nurse reported that she did not remove any fluid during HD.
--- NOTE | 2018-09-27 20:15 | NUR ---
Report called to Mesha in [place] to Pat will be the pts receiving nurse.
--- NOTE | 2018-09-27 20:25 | NUR ---
[facility] called and transfer ambulance requested. They informed me that it will take about an hour for them to send an ambulance. supervisor boilermaking shop Lakisha WOO notified.
[2018-09-27] MEDS: MEROPENEM 500MG/ NS 50ML 50 ML IV SCH (20:37)
--- NOTE | 2018-09-27 21:00 | NUR ---
EMS present, Lakisha morelhousekeeping staff present. Pt to wide for standard EMS transport stretcher, bariatric stretcher being delivered my EMS from the medical center.
--- NOTE | 2018-09-27 21:45 | NUR ---
EMS present and pt is now on transport stretcher.
--- NOTE | 2018-09-27 21:50 | NUR ---
CAMRYN ALEXANDRE AT BEDSIDE TO CONFIRM OXYGEN SETTINGS FOR TRANSPORT
--- NOTE | 2018-09-27 23:21 | NUR ---
ARRANGED FOR SIZE VARGAS BED RENTAL IT SUPPORT CONSULTANT. SPOKE TO ELISABETH AT 2321. CONFIRMATION # [id number]. BED TO BE PICKED UP ON 09/28/18 PER DON WITH SIZE [facility].
== END 2018-09-27 22:30 | DRG 3 ==
LOC: ER 11:41 → ERHOLD 14:51 → ICU 18:43
PROC: 5A1D70Z Performance of Urinary Filtration, Intermittent, Less than 6 Hours Per Day (ICD-10-PCS; 2018-08-25)
PROC: 02HV33Z Insertion of Infusion Device into Superior Vena Cava, Percutaneous Approach (ICD-10-PCS; 2018-08-25)
PROC: 5A1D70Z Performance of Urinary Filtration, Intermittent, Less than 6 Hours Per Day (ICD-10-PCS; 2018-08-26)
PROC: 5A1D70Z Performance of Urinary Filtration, Intermittent, Less than 6 Hours Per Day (ICD-10-PCS; 2018-08-28)
PROC: 5A1955Z Respiratory Ventilation, Greater than 96 Consecutive Hours (ICD-10-PCS; principal; 2018-08-31)
PROC: 0BH17EZ Insertion of Endotracheal Airway into Trachea, Via Natural or Artificial Opening (ICD-10-PCS; 2018-08-31)
PROC: 5A12012 Performance of Cardiac Output, Single, Manual (ICD-10-PCS; 2018-08-31)
PROC: 5A1D70Z Performance of Urinary Filtration, Intermittent, Less than 6 Hours Per Day (ICD-10-PCS; 2018-09-04)
PROC: 5A1D70Z Performance of Urinary Filtration, Intermittent, Less than 6 Hours Per Day (ICD-10-PCS; 2018-09-05)
PROC: 30233N1 Transfusion of Nonautologous Red Blood Cells into Peripheral Vein, Percutaneous Approach (ICD-10-PCS; 2018-09-05)
PROC: 5A1D70Z Performance of Urinary Filtration, Intermittent, Less than 6 Hours Per Day (ICD-10-PCS; 2018-09-06)
PROC: 5A1D70Z Performance of Urinary Filtration, Intermittent, Less than 6 Hours Per Day (ICD-10-PCS; 2018-09-07)
PROC: 5A1D70Z Performance of Urinary Filtration, Intermittent, Less than 6 Hours Per Day (ICD-10-PCS; 2018-09-08)
PROC: 5A1D70Z Performance of Urinary Filtration, Intermittent, Less than 6 Hours Per Day (ICD-10-PCS; 2018-09-09)
PROC: 3E0436Z Introduction of Nutritional Substance into Central Vein, Percutaneous Approach (ICD-10-PCS; 2018-09-09)
PROC: 5A1D70Z Performance of Urinary Filtration, Intermittent, Less than 6 Hours Per Day (ICD-10-PCS; 2018-09-11)
PROC: 0B110F4 Bypass Trachea to Cutaneous with Tracheostomy Device, Open Approach (ICD-10-PCS; 2018-09-12)
PROC: 5A1D70Z Performance of Urinary Filtration, Intermittent, Less than 6 Hours Per Day (ICD-10-PCS; 2018-09-13)
PROC: 5A1D70Z Performance of Urinary Filtration, Intermittent, Less than 6 Hours Per Day (ICD-10-PCS; 2018-09-15)
PROC: 0JH63XZ Insertion of Tunneled Vascular Access Device into Chest Subcutaneous Tissue and Fascia, Percutaneous Approach (ICD-10-PCS; 2018-09-15)
PROC: 02HV33Z Insertion of Infusion Device into Superior Vena Cava, Percutaneous Approach (ICD-10-PCS; 2018-09-15)
PROC: B5181ZA Fluoroscopy of Superior Vena Cava using Low Osmolar Contrast, Guidance (ICD-10-PCS; 2018-09-15)
PROC: 0DH63UZ Insertion of Feeding Device into Stomach, Percutaneous Approach (ICD-10-PCS; 2018-09-16)
PROC: 5A1D70Z Performance of Urinary Filtration, Intermittent, Less than 6 Hours Per Day (ICD-10-PCS; 2018-09-17)
PROC: 5A1D70Z Performance of Urinary Filtration, Intermittent, Less than 6 Hours Per Day (ICD-10-PCS; 2018-09-18)
PROC: 5A1D70Z Performance of Urinary Filtration, Intermittent, Less than 6 Hours Per Day (ICD-10-PCS; 2018-09-20)
PROC: 5A1D70Z Performance of Urinary Filtration, Intermittent, Less than 6 Hours Per Day (ICD-10-PCS; 2018-09-22)
PROC: 0DW64UZ Revision of Feeding Device in Stomach, Percutaneous Endoscopic Approach (ICD-10-PCS; 2018-09-25)
PROC: 5A1D70Z Performance of Urinary Filtration, Intermittent, Less than 6 Hours Per Day (ICD-10-PCS; 2018-09-25)
PROC: 5A1D70Z Performance of Urinary Filtration, Intermittent, Less than 6 Hours Per Day (ICD-10-PCS; 2018-09-27)
DX: N17.9 Acute kidney failure, unspecified (principal); I46.9 Cardiac arrest, cause unspecified; G93.41 Metabolic encephalopathy; J96.21 Acute and chronic respiratory failure with hypoxia; K72.00 Acute and subacute hepatic failure without coma; A41.9 Sepsis, unspecified organism; R65.21 Severe sepsis with septic shock; J15.6 Pneumonia due to other Gram-negative bacteria; I50.43 Acute on chronic combined systolic (congestive) and diastolic (congestive) heart failure; E87.1 Hypo-osmolality and hyponatremia; Z68.41 Body mass index [BMI] 40.0-44.9, adult; E87.0 Hyperosmolality and hypernatremia; K22.10 Ulcer of esophagus without bleeding; N39.0 Urinary tract infection, site not specified; E66.2 Morbid (severe) obesity with alveolar hypoventilation; E46 Unspecified protein-calorie malnutrition; I13.2 Hypertensive heart and chronic kidney disease with heart failure and with stage 5 chronic kidney disease, or end stage renal disease; F10.230 Alcohol dependence with withdrawal, uncomplicated; K94.23 Gastrostomy malfunction; D64.9 Anemia, unspecified; M10.9 Gout, unspecified; R47.81 Slurred speech; M35.00 Sjogren syndrome, unspecified; K70.10 Alcoholic hepatitis without ascites; Z91.81 History of falling; M06.9 Rheumatoid arthritis, unspecified; K21.9 Gastro-esophageal reflux disease without esophagitis; M54.9 Dorsalgia, unspecified; K70.30 Alcoholic cirrhosis of liver without ascites; N17.0 Acute kidney failure with tubular necrosis; Z91.19 Patient's noncompliance with other medical treatment and regimen; K29.70 Gastritis, unspecified, without bleeding; R13.10 Dysphagia, unspecified; E83.42 Hypomagnesemia; N18.6 End stage renal disease; B96.1 Klebsiella pneumoniae [K. pneumoniae] as the cause of diseases classified elsewhere; S50.812A Abrasion of left forearm, initial encounter; L98.499 Non-pressure chronic ulcer of skin of other sites with unspecified severity
CPT/HCPCS: 36415; 36556; 36558; 36600; 43246; 70450; 71045; 72125; 74176; 74470; 76700; 76937; 80048; 80053; 80076; 80202; 81001; 81015; 81161; 81220; 82103; 82140; 82150; 82390; 82550; 82553; 82570; 82607; 82728; 82746; 82805; 82948; 83540; 83630; 83690; 83735; 83880; 83935; 84100; 84132; 84145; 84300; 84466; 84484; 85007; 85014; 85018; 85025; 85027; 85045; 85379; 85610; 85651; 85730; 86039; 86140; 86255; 86431; 86704; 86706; 86707; 86803; 86850; 86900; 86920; 86922; 87040; 87045; 87070; 87071; 87075; 87086; 87177; 87186; 87205; 87340; 87493; 90962; 93005; 93306; 94002; 94003; 96360; 96372; 97139; 99284; C1751; C1769; J0690; J0692; J0696; J1450; J1644; J1650; J1940; J2001; J2150; J2185; J2250; J2270; J2310; J2370; J2920; J3370; J3411; J3420; J3475; J7030; J7040; J7050; J7512; P9016; P9047; Q4081